=== PATIENT | female | born 1945 | race Caucasian/White ===

== ENCOUNTER 2018-02-16 07:54 | Inpatient (IN) | payer MEDICARE ==
[2018-02-16] MEDS ORDERED: SODIUM CHLORIDE 0.9% 500 ML IV STA ×2 (08:01→09:37)
[2018-02-16] MEDS ORDERED: RX INFO: IV CONTRAST WAS GIVEN 1 EACH MISC MISCELLANE PRN (08:01)
[2018-02-16] MEDS ORDERED: SODIUM CHLORIDE 0.9% 1,000 ML IV STA (08:01)
[2018-02-16] MEDS ORDERED: MECLIZINE 12.5 MG TAB PO STA (08:04)
--- NOTE | 2018-02-16 08:07 | ED ---
Dizziness HPI - General Stated Complaint: DIZZINESS Time Seen by Provider: 02/16/18 07:54 Source: patient, EMS, RN notes reviewed Mode of arrival: EMS Limitations: no limitations - History of Present Illness Initial Comments: This is a 72-year-old female with a history of hypertension three-way coronary artery bypass anxiety depression and low back problems who states she gets this morning and when walking across a room to open the shade she felt suddenly very weak lightheaded dizzy and was staggering. She had no weakness to arms or legs was focal no difficulty with speech or with vision. He was brought in by EMS for evaluation. She states she seemed to get worse with head movements. She does states she did have a similar episode several weeks ago that resolved. No history of stroke she is a nonsmoker. No fevers chills sweats nausea vomiting diarrhea no other modifying factors MD Complaint: dizziness, lightheadedness, difficulty walking - Related Data Home Medications Medication Instructions Recorded Confirmed ALPRAZolam [Xanax] 1 mg PO Q8HR PRN 02/16/18 02/16/18 Acetaminophen [Tylenol 8 Hour] 650 mg PO Q8H PRN 02/16/18 02/16/18 Aspirin EC [Ecotrin Low Dose] 81 mg PO DAILY 02/16/18 02/16/18 Calcium Carb/Vitamin D3/Vit K1 1 tab PO DAILY 02/16/18 02/16/18 [Citracal Soft Chew] Cholecalciferol (Vitamin D3) 2,000 unit PO DAILY 02/16/18 02/16/18 [Vitamin D3] Losartan Potassium 100 mg PO DAILY 02/16/18 02/16/18 Metoprolol Succinate (ER) [Toprol 25 mg PO DAILY 02/16/18 02/16/18 Xl] Naproxen Sodium [Aleve] 220 mg PO BID PRN 02/16/18 02/16/18 Naproxen [Naproxen] 500 mg PO BID 02/16/18 02/16/18 Pravastatin Sodium 80 mg PO HS 02/16/18 02/16/18 Allergies Allergy/AdvReac Type Severity Reaction Status Date / Time No Known Allergies Allergy Verified 02/16/18 09:38 Review of Systems ROS Statement: Those systems with pertinent positive or pertinent negative responses have been documented in the HPI. ROS Other: All systems not noted in ROS Statement are negative. Past Medical History Past Medical History: Hyperlipidemia, Hypertension Additional Past Medical History / Comment(s): Chronic Back Pain History of Any Multi-Drug Resistant Organisms: None Reported Past Surgical History: Coronary Bypass/CABG Past Psychological History: Anxiety, Depression Smoking Status: Never smoker Past Alcohol Use History: None Reported Past Drug Use History: None Reported General Exam - General Exam Comments Initial Comments: This is a well-developed well-nourished awake alert oriented 3 female Limitations: no limitations General appearance: alert, anxious, other (There is a small approximate 170 diameter lesion to the right face lateral to the nose which may represent neoplasm the patient was advised to see a it business process architect to get this evaluated.) Head exam: Present: atraumatic, normocephalic, normal inspection Eye exam: Present: normal appearance, PERRL, EOMI. Absent: scleral icterus, conjunctival injection, periorbital swelling ENT exam: Present: normal exam, mucous membranes moist Neck exam: Present: normal inspection. Absent: tenderness, meningismus, lymphadenopathy Respiratory exam: Present: normal lung sounds bilaterally. Absent: respiratory distress, wheezes, rales, rhonchi, stridor Cardiovascular Exam: Present: regular rate, normal rhythm, normal heart sounds. Absent: systolic murmur, diastolic murmur, rubs, gallop, clicks GI/Abdominal exam: Present: soft, normal bowel sounds. Absent: distended, tenderness, guarding, rebound, rigid Extremities exam: Present: normal inspection, full ROM, normal capillary refill. Absent: tenderness, pedal edema, joint swelling, calf tenderness Back exam: Present: normal inspection Neurological exam: Present: alert, oriented X3, CN II-XII intact Psychiatric exam: Present: normal affect, anxious Skin exam: Present: warm, dry, intact, normal color. Absent: rash Course Vital Signs 02/16/18 02/16/18 02/16/18 07:55 09:55 11:00 Temperature 97.1 F L Pulse Rate 54 L 58 L 58 L Respiratory 18 18 18 Rate Blood Pressure 168/96 179/84 157/76 O2 Sat by Pulse 100 93 L 96 Oximetry - Reevaluation(s) Reevaluation #1: 02/16/18 11:54 I did reevaluate patient several occasions she still remains dizzy though slightly improved. I did discuss the findings with her and with her family members including the radiological findings of stenosis and the aneurysms. EKG Findings - EKG Results: EKG: interpreted by ERMD, sinus rhythm (Sinus bradycardia rate of 58. Interval 214 QRS 78 QT since QTC of 436/428 first-degree AV block occasional PAC nonspecific inferior changes) Medical Decision Making - Medical Decision Making Patient will be admitted for evaluation and neurological consultation. - Lab Data Result diagrams: 02/16/18 08:05 02/16/18 08:05 Lab Results 02/16/18 02/16/18 02/16/18 Range/Units 08:05 08:05 08:05 WBC 6.3 (3.8-10.6) k/uL RBC 4.97 (3.80-5.40) m/uL Hgb 13.9 (11.4-16.0) gm/dL Hct 41.0 (34.0-46.0) % MCV 82.6 (80.0-100.0) fL MCH 28.0 (25.0-35.0) pg MCHC 33.9 (31.0-37.0) g/dL RDW 14.1 (11.5-15.5) % Plt Count 241 (150-450) k/uL Neutrophils % 62 % Lymphocytes % 27 % Monocytes % 5 % Eosinophils % 3 % Basophils % 0 % Neutrophils # 3.9 (1.3-7.7) k/uL Lymphocytes # 1.7 (1.0-4.8) k/uL Monocytes # 0.3 (0-1.0) k/uL Eosinophils # 0.2 (0-0.7) k/uL Basophils # 0.0 (0-0.2) k/uL PT (9.0-12.0) sec INR (<1.2) APTT (22.0-30.0) sec Sodium 146 H (137-145) mmol/L Potassium 4.4 (3.5-5.1) mmol/L Chloride 107 (98-107) mmol/L Carbon Dioxide 26 (22-30) mmol/L Anion Gap 13 mmol/L BUN 23 H (7-17) mg/dL Creatinine 0.92 (0.52-1.04) mg/dL Est GFR (CKD-EPI)AfAm 71 (>60 ml/min/1.73 sqM) Est GFR (CKD-EPI)NonAf 62 (>60 ml/min/1.73 sqM) Glucose 93 (74-99) mg/dL Calcium 9.7 (8.4-10.2) mg/dL Magnesium 2.0 (1.6-2.3) mg/dL Total Bilirubin 0.7 (0.2-1.3) mg/dL AST 32 (14-36) U/L ALT 29 (9-52) U/L Alkaline Phosphatase 80 (38-126) U/L Total Creatine Kinase 56 (30-135) U/L CK-MB (CK-2) 0.7 (0.0-2.4) ng/mL CK-MB (CK-2) Rel Index 1.3 Troponin I <0.012 (0.000-0.034) ng/mL Total Protein 6.8 (6.3-8.2) g/dL Albumin 4.2 (3.5-5.0) g/dL / Range/Units 08:05 WBC (3.8-10.6) k/uL RBC (3.80-5.40) m/uL Hgb (11.4-16.0) gm/dL Hct (34.0-46.0) % MCV (80.0-100.0) fL MCH (25.0-35.0) pg MCHC (31.0-37.0) g/dL RDW (11.5-15.5) % Plt Count (150-450) k/uL Neutrophils % % Lymphocytes % % Monocytes % % Eosinophils % % Basophils % % Neutrophils # (1.3-7.7) k/uL Lymphocytes # (1.0-4.8) k/uL Monocytes # (0-1.0) k/uL Eosinophils # (0-0.7) k/uL Basophils # (0-0.2) k/uL PT 10.2 (9.0-12.0) sec INR 1.0 (<1.2) APTT 21.7 L (22.0-30.0) sec Sodium (137-145) mmol/L Potassium (3.5-5.1) mmol/L Chloride (98-107) mmol/L Carbon Dioxide (22-30) mmol/L Anion Gap mmol/L BUN (7-17) mg/dL Creatinine (0.52-1.04) mg/dL Est GFR (CKD-EPI)AfAm (>60 ml/min/1.73 sqM) Est GFR (CKD-EPI)NonAf (>60 ml/min/1.73 sqM) Glucose (74-99) mg/dL Calcium (8.4-10.2) mg/dL Magnesium (1.6-2.3) mg/dL Total Bilirubin (0.2-1.3) mg/dL AST (14-36) U/L ALT (9-52) U/L Alkaline Phosphatase (38-126) U/L Total Creatine Kinase (30-135) U/L CK-MB (CK-2) (0.0-2.4) ng/mL CK-MB (CK-2) Rel Index Troponin I (0.000-0.034) ng/mL Total Protein (6.3-8.2) g/dL Albumin (3.5-5.0) g/dL - Radiology Data Radiology results: report reviewed (I did review the imaging and reports which includes the bilateral MCA aneurysms 5 x 5 mm on the right and 2 mm and left hand the proximally 50% stenosis of the right carotid bulb etc. no acute findings), image reviewed Disposition Clinical Impression: Vertigo Disposition: ADMITTED IP TO THIS [facility] Condition: Stable Referrals: James Barboza MD [Primary Care Provider] - 1-2 days
[2018-02-16 08:25] LABS: Basophils % (A) 0 %; Eosinophils # (A) 0.2 k/uL (0-0.7); Eosinophils % (A) 3 %; HGB 13.9 gm/dL (11.4-16.0); Lymphocytes # (A) 1.7 k/uL (1.0-4.8); Lymphocytes % (A) 27 %; MCHC 33.9 g/dL (31.0-37.0); MCV 82.6 fL (80.0-100.0); Mean Platelet Volume 7.7; Monocytes # (A) 0.3 k/uL (0-1.0); Monocytes % (A) 5 %; Neutrophils # (A) 3.9 k/uL (1.3-7.7); Neutrophils % (A) 62 %; Platelet Count 241 k/uL (150-450); RBC 4.97 m/uL (3.80-5.40); RDW 14.1 % (11.5-15.5); WBC 6.3 k/uL (3.8-10.6)
[2018-02-16 08:35] LABS: Albumin 4.2 g/dL (3.5-5.0); Calcium 9.7 mg/dL (8.4-10.2); Potassium 4.4 mmol/L (3.5-5.1); Total Bilirubin 0.7 mg/dL (0.2-1.3); Total Protein 6.8 g/dL (6.3-8.2)
[2018-02-16 08:41] LABS: Prothrombin Time 10.2 sec (9.0-12.0)
[2018-02-16 08:48] LABS: Partial Thromboplastin Time 21.7 sec (22.0-30.0)
[2018-02-16 08:49] LABS: Creatine Kinase 56 U/L (30-135)
--- NOTE | 2018-02-16 08:52 | CT ---
EXAMINATION TYPE: CT brain wo con DATE OF EXAM: 02/16/2018 COMPARISON: NONE HISTORY: Patient complains of weakness, lightheadedness, and dizziness. CT DLP: 825.2 mGycm Automated exposure control for dose reduction was used. TECHNIQUE: CT scan of the head is performed without contrast. FINDINGS: There is no acute intracranial hemorrhage or midline shift identified. There is diffuse v entricular and sulcal prominence consistent with diffuse age-related cerebral atrophy. There is low- attenuation in the periventricular white matter consistent with chronic small vessel ischemic change. Dystrophic calcifications are seen of the basal ganglia. Tiny CSF attenuated old clearing trace seen of the external capsule on the right and of the inferior right lentiform nucleus. The globes are int act and the visualized sinuses are clear. Calvarium is intact. Diffuse osseous demineralization is seen of the skull base and calvarium. Atherosclerosis is noted of the intracranial vasculature. IMPRESSION: 1. No acute intracranial process. 2. 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 Mild age-related cerebral atro phy and chronic small vessel ischemic change, likely on the basis of chronic microangiopathy.
[2018-02-16 09:01] LABS: Creatine Kinase MB 0.7 ng/mL (0.0-2.4); Troponin I <0.012 ng/mL (0.000-0.034)
--- NOTE | 2018-02-16 09:24 | CT ---
EXAMINATION TYPE: CT angio head neck DATE OF EXAM: 02/16/2018 HISTORY: Patient complains of weakness, lightheadedness, and dizziness. COMPARISON: CT brain of the same date CT DLP: 176.5 mGycm. Automated Exposure Control for Dose Reduction was Utilized. TECHNIQUE: CTA scan of the neck is performed with IV Contrast, patient injected with 65 mL of Isovue 370, axial images are obtained, coronal and sagittal reformatted images are reviewed. Three-D recons tructed images are created on an independent workstation and reviewed. FINDINGS: Carotid/Vascular Structures: There is approximately 50% stenosis of the carotid bulb and proximal int ernal carotid artery from contiguous noncalcific and calcific atheromatous plaquing in a segment johnna uring 1.2 cm on series 8 image 43. There is less than 50% nonhemodynamically significant stenosis of the left carotid bulb. No significant atheromatous changes are seen of the common carotid arteries or internal carotid arteries in the neck. Vertebral arteries are patent without dissection, focal aneur ysm or stenosis. Left vertebral artery is dominant. With respect to the intracranial vasculature there is approximately 50% stenosis of the bilateral cav ernous and supraclinoid portions of the internal carotid arteries. There is a 5 x 5 mm aneurysm emanating from the M1 segment of the right middle cerebral artery on ser ies 13 image 40 and series 12 image 13 through 16. There is also a tiny 2 mm aneurysm of the M1 segme nt of the left middle cerebral artery on series 12 image 13. There is anatomic variation of the origi n of the right posterior cerebral artery. No additional intracranial aneurysm is seen. No vascular oc clusion or stenosis is noted in the intracranial vasculature. Left posterior communicating artery is diminutive. Visualized portions of the brain parenchyma are better evaluated on the CT brain dictatio n of the same date. Other: Biapical pleural-parenchymal plaquing is noted. Multilevel moderate degenerative changes of th e cervical spine are seen. Slight grade 1 anterolisthesis of C3 on C4 is identified. IMPRESSION: 1. Bilateral M1 segment middle cerebral artery intracranial aneurysms without evidence of extravasati on or rupture. The right aneurysm measures 5 x 5 mm and the left measures 2 mm. 2. Approximately 50% stenosis of the right carotid bulb, bilateral cavernous portions of the internal carotid arteries, and bilateral supraclinoid portions of the internal carotid arteries. 2. No evidence of vascular dissection or total occlusion.
--- NOTE | 2018-02-16 09:29 | XR ---
EXAMINATION TYPE: XR chest 2V DATE OF EXAM: 02/16/2018 COMPARISON: NONE HISTORY: Altered mental status and weakness. TECHNIQUE: Frontal and lateral views of the chest are obtained. FINDINGS: Post CABG changes with mediastinal clips and sternal wires is present. There is chronic par enchymal change without suspicious focal air space opacity, pleural effusion, or pneumothorax seen. The cardiac silhouette size is within normal limits. The osseous structures are demineralized. Roun ded densities right axilla could reflect soft tissue calcifications or loose bodies. IMPRESSION: Chronic changes without acute pulmonary process.
[2018-02-16] MEDS ORDERED: NAPROXEN 250 MG TAB PO PRN (11:59)
[2018-02-16] MEDS ORDERED: ALPRAZolam 1 MG TAB PO PRN (11:59)
[2018-02-16] MEDS ORDERED: ACETAMINOPHEN TAB 325 MG TAB PO PRN (11:59)
[2018-02-16 15:37] VITALS: RESP 16
[2018-02-16] MEDS ORDERED: METOPROLOL SUCCINATE (ER) 25 MG TAB.ER.24H PO STA (16:25)
[2018-02-16] MEDS ORDERED: LOSARTAN 50 MG TAB PO STA (16:26)
[2018-02-16] MEDS: SODIUM CHLORIDE 0.9% 1,000 ML IV SCH (17:20)
[2018-02-16] MEDS: NAPROXEN 250 MG TAB PO SCH (20:14)
[2018-02-16] MEDS ORDERED: PRAVASTATIN SODIUM 80 MG TAB PO SCH (21:00)
--- NOTE | 2018-02-16 21:18 | CONS ---
CONSULTATION DATE OF CONSULTATION: 02/16/2018 CHIEF COMPLAINT: Dizziness. HISTORY OF PRESENT ILLNESS: Mrs. Markham is a pleasant 72-year-old, female who was being evaluated by the Neurology service per the request of Dr. Keen for dizziness. The patient was brought into [facility] Emergency Room after she had a sudden onset of dizziness this morning. She described the dizziness at that time as a spinning sensation. She has had similar episodes in the past, but never this severe. The patient was unable to ambulate due to the severity of the symptoms. The patient was brought into [facility] Emergency Room by EMS for further management. She denied having any lateralizing numbness or weakness and denied having any headaches. A CT scan of the brain was done in the emergency room, which showed old lacunar infarct involving the right basal ganglia and right external capsule. There was also generalized atrophy and small-vessel ischemic changes. A CT angiogram of the brain was done, which showed a 5 x 5 mm right middle cerebral artery aneurysm and a 2 x 2 mm left middle cerebral artery aneurysm. A CT angiogram of the neck showed 50% right internal carotid artery stenosis. The patient denies knowing of any history of stroke or aneurysm. Her CBC and cardiac enzymes were normal. Her comprehensive metabolic profile showed no significant abnormalities. At the time of my evaluation, the patient was resting in her bed and she denies any current vertigo. She has been having some lightheadedness. She was given Antivert in the emergency room. PAST MEDICAL HISTORY: Coronary artery disease, hypertension, dyslipidemia, coronary artery bypass grafting, chronic low back pain, anxiety disorder, depression. She also reports previous vertigo symptoms. SOCIAL HISTORY: She denies any tobacco, alcohol or drug use. FAMILY HISTORY: Noncontributory. HOME MEDICATIONS: Reviewed in the chart. ALLERGIES: No known drug allergies. REVIEW OF SYSTEMS: CONSTITUTIONAL: Positive for fatigue. EYES: Negative. ENT: As mentioned above. CARDIOVASCULAR: Negative. GENITOURINARY: Negative. DERMATOLOGICAL: Negative. NEUROLOGICAL: As mentioned above. GASTROINTESTINAL: Negative. GENITOURINARY: Negative. ENDOCRINE: Negative. MUSCULOSKELETAL: Positive for occasional low back pain and joint pain. PSYCHIATRIC: Negative. PHYSICAL EXAM: Vital signs show a temperature of 98.2, pulse 62, respirations 16, blood pressure 155/73. GENERAL APPEARANCE: The patient is a well-developed, elderly female, who appears to be in no acute distress. HEENT: Normocephalic, atraumatic, no facial asymmetry is seen. NECK: Supple with no masses felt. CARDIOVASCULAR: Regular rate and rhythm. ABDOMEN: Nontender, nondistended. Extremities showed no edema or clubbing. NEUROLOGICAL EXAM: The patient is alert, aware and oriented x3. Speech and language are normal. Strength is full in all 4 extremities. Sensory exam was normal to light touch in all 4 extremities. No tremors or seizure-like activity is seen. No pronator drift is noted. Cranial nerve testing showed no facial asymmetry and no nystagmus. IMPRESSIONS: 1. Dizziness. 2. Intracranial aneurysms. 3. History of ischemic stroke. 4. Carotid stenosis. 5. Hypertension. RECOMMENDATION: The patient vertigo has improved with Antivert. She is still having mild dizziness, but denies any vertigo. She will have an EEG done. I reviewed with her the results of her CT scan of the brain and CT angiogram. She does have evidence of old lacunar infarcts and she should remain on aspirin 81 mg daily. As for her aneurysms, these are incidental findings and not related to her vertigo. She will need to have followup imaging to monitor any change in size. She will follow up with me after discharge. I will establish neurosurgical consultation at that time. As for her carotid stenosis, it is at 50% at this time. I will continue to follow this in the outpatient setting. The patient was advised to seek immediate medical attention if she has any stroke-like symptoms or if she has any sudden onset of a severe headache. The importance of blood pressure control was discussed with her as well. I will continue to follow with you. Further recommendations to follow. Thank you for allowing me to participate in the care of your patient. If you have any questions, please feel free to contact me. BOBBI / CHANTELLEN: [id number] / PARMINDER
[2018-02-16] MEDS ORDERED: LACTULOSE 20 GM/30 ML CUP PO PRN (22:21)
[2018-02-16] MEDS ORDERED: ALPRAZolam 0.25 MG TAB PO PRN (22:21)
[2018-02-16] MEDS ORDERED: MAGNESIUM HYDROXIDE 2,400 MG/10 ML CUP PO PRN (22:21)
[2018-02-16] MEDS ORDERED: MELATONIN 3 MG TABLET PO PRN (22:21)
[2018-02-16] MEDS ORDERED: NALOXONE 0.4 MG/ML 1 ML VIAL IV PRN (22:21)
[2018-02-16] MEDS ORDERED: ONDANSETRON 4 MG/2 ML VIAL IVP PRN (22:21)
[2018-02-16] MEDS ORDERED: CALCIUM CARBONATE 500 MG CHEWABLE PO PRN (22:21)
[2018-02-16] MEDS: MECLIZINE 12.5 MG TAB PO SCH (23:30)
--- NOTE | 2018-02-16 23:42 | HP ---
HISTORY AND PHYSICAL DATE OF ADMISSION: 02/16/2018. DATE OF SERVICE: 02/16/2018 PRESENT COMPLAINT: Room spinning. HISTORY OF PRESENTING COMPLAINT: This is a very pleasant 72-year-old patient of Dr. Barboza. Chronic stable medical conditions include coronary artery disease, hypertension, depression, chronic low back pain, anxiety, depression. The patient at 6:00 this morning got up, felt very dizzy. The room was spinning around. No palpitations. No shortness of breath. No chest pain. Did not matter what position she was. Finally decided to come to the hospital. There was no change in vision, speech or focal weakness. The patient presented to the ER. The patient has not had any recent cardiac workup. The patient did have a CT angio in the ER, was found to have [address] scan of the brain was unremarkable. EKG did not show any arrhythmia. The patient admitted for the same. REVIEW OF SYSTEMS: CONSTITUTIONAL: None. HEENT: As above. No ear trouble. RESPIRATORY: None. CARDIOVASCULAR: None. GASTROINTESTINAL: None. GENITOURINARY: None. MUSCULOSKELETAL: Arthritic pain in lower back. DERMATOLOGICAL: None. HEMATOLOGIC: None. LYMPHATIC: None. PSYCHIATRY: Anxiety, controlled. NEUROLOGICAL: As above with no focal weakness. PAST MEDICAL HISTORY: Coronary artery disease, hypertension, chronic low back pain for which he follows with Dr. Joyce, osteoporosis, anxiety, depression. PAST SURGICAL HISTORY: Coronary bypass, 2 vessel in 2005. SOCIAL HISTORY: Does not smoke or drink alcohol. . FAMILY HISTORY: Myocardial infarction. HOME MEDICATIONS: 1. Naproxen 500 mg p.o. b.i.d. 2. Toprol-XL 25 mg a day. 3. Pravastatin 80 mg q.h.s. 4. Losartan 100 mg p.o. daily. 5. Vitamin D3 2000 units p.o. daily. 6. Tylenol 650 mg q.8h p.r.n. 7. Xanax 1 mg q.8h p.r.n. 8. Citracal soft chew 1 tablet p.o. daily. 9. Aspirin 81 mg p.o. daily. ALLERGIES: None. EXAMINATION: VITAL SIGNS: On presentation, temperature 97.1, pulse 54, respirations 18, blood pressure 168/96, pulse ox 100% on room air. GENERAL APPEARANCE: Average build, lying in bed, comfortable. EYES: Pupils equal. Conjunctivae normal. HEENT: External appearance of nose and ears normal. Oral cavity normal. NECK: JVD not raised. Mass not palpable. RESPIRATORY: Effort normal. Lungs are clear. CARDIOVASCULAR: First and second sounds normal. No edema. ABDOMEN: Soft, nontender. Liver and spleen not palpable. LYMPHATIC: No lymph node palpable in neck or axillae. PSYCHIATRY: Alert and oriented x3. Mood and affect normal. NEUROLOGICAL: Pupils equal. Cranial nerves grossly intact. No nystagmus. No slurring of speech. Power and sensation grossly intact. No dysdiadochokinesia. No past-pointing. INVESTIGATIONS: White count 6.3, hemoglobin 13.9. Potassium 4.4, BUN 23, creatinine 0.92. Troponin negative. EKG shows first-degree heart block. CT angio of the brain shows a 5.5-cm aneurysm around the right middle cerebral artery and a tiny 2-mm aneurysm off the left middle cerebral artery. There is 50% stenosis of the right carotid bulb. CT scan of the brain: Old acute infarct of the right basal ganglia and external capsule. Also EKG shows ST-segment depression in V2 to V6 and I and aVL. ASSESSMENT: 1. Patient presented with episodes of room spinning which is vertigo. It could be from , but the patient has no symptoms pointing to that. It could also be from the arrhythmia, given that the patient has known history of coronary artery disease and ST-segment depression in inferolateral leads. The patient has not had any other stress test recently and needs to be further investigated. 2. Coronary artery disease with bypass 2 years ago. 3. Essential hypertension, uncontrolled on presentation. 4. Anxiety, depression, not otherwise specified. 5. Lumbar spine degenerative joint disease. 6. 2 cerebral aneurysms, 2 mm and 5 , which does not explain patient's presentation, as these are focal findings. PLAN: Patient will be given Antivert to see if this abates her symptoms. The patient will also probably need a stress test, given the EKG findings. Neurology and Cardiology were both consulted. Care was discussed with the patient. Questions were answered. MMODL / IJN: [id number] /
[2018-02-17 01:45] LABS: Cholesterol 138 mg/dL (<200); HDL Cholesterol 40 mg/dL (40-60); LDL Cholesterol,Calculated 53 mg/dL (0-99); Triglycerides 227 mg/dL (<150)
[2018-02-17] MEDS ORDERED: ASPIRIN 81 MG PO SCH (09:00)
[2018-02-17] MEDS ORDERED: LOSARTAN 50 MG TAB PO SCH (09:00)
[2018-02-17] MEDS ORDERED: ENOXAPARIN 40 MG/0.4 ML SYRINGE SQ SCH (09:00)
[2018-02-17] MEDS ORDERED: METOPROLOL SUCCINATE (ER) 25 MG TAB.ER.24H PO SCH (09:00)
--- NOTE | 2018-02-17 11:02 | P.CRDCN ---
History of Present Illness Consult date: 02/17/18 History of present illness: This is a 72-year-old female with history of hypertension, previous bypass surgery and also anxiety and depression who was admitted to the hospital with symptoms of dizziness as if everything is spinning around her. The symptoms are suggestive of vertigo. Patient was seen by neurology. She was treated with Antivert with improvement of her symptoms. CT scans and showed evidence of previous lacunar infarcts. Carotid duplex study showed mild to moderate disease. Patient is feeling much better today. Denied any chest pain or shortness of breath. EKG showed mild nonspecific ST-T abnormalities. Once troponin is within normal limits. I'm going to get another troponin value and an echocardiogram. If they're normal, patient could be discharged home. Further cardiac evaluation as an outpatient. Follow-up in the office in one week Review of Systems As per HPI Past Medical History Past Medical History: Coronary Artery Disease (CAD), Chest Pain / Angina, Hypertension Additional Past Medical History / Comment(s): Chronic Back Pain lately and recently saw Dr. Joyce for this, DDD, DJD, osteoporosis. History of Any Multi-Drug Resistant Organisms: None Reported Past Surgical History: Coronary Bypass/CABG, Heart Catheterization Additional Past Surgical History / Comment(s): 2005 CABG 2 vessel Past Anesthesia/Blood Transfusion Reactions: No Reported Reaction Smoking Status: Never smoker - Past Family History Father Additional Family Medical History / Comment(s): Father had heart problems after the of his daughter. Mother Family Medical History: Myocardial Infarction (PA) Additional Family Medical History / Comment(s): Mother in her 60s from a PA. Sister(s) Additional Family Medical History / Comment(s): Sister comitted suicide. Medications and Allergies Home Medications Medication Instructions Recorded Confirmed Type ALPRAZolam [Xanax] 1 mg PO Q8HR PRN 02/16/18 02/16/18 History Acetaminophen [Tylenol 8 Hour] 650 mg PO Q8H PRN 02/16/18 02/16/18 History Aspirin EC [Ecotrin Low Dose] 81 mg PO DAILY 02/16/18 02/16/18 History Calcium Carb/Vitamin D3/Vit K1 1 tab PO DAILY 02/16/18 02/16/18 History [Citracal Soft Chew] Cholecalciferol (Vitamin D3) 2,000 unit PO DAILY 02/16/18 02/16/18 History [Vitamin D3] Losartan Potassium 100 mg PO DAILY 02/16/18 02/16/18 History Metoprolol Succinate (ER) [Toprol 25 mg PO DAILY 02/16/18 02/16/18 History Xl] Naproxen Sodium [Aleve] 220 mg PO BID PRN 02/16/18 02/16/18 History Naproxen [Naproxen] 500 mg PO BID 02/16/18 02/16/18 History Pravastatin Sodium 80 mg PO HS 02/16/18 02/16/18 History Allergies Allergy/AdvReac Type Severity Reaction Status Date / Time No Known Allergies Allergy Verified 02/16/18 09:38 Physical Exam Vitals: Vital Signs Temp Pulse Pulse Pulse Pulse Pulse Pulse 02/17/18 08:00 97.4 F L 58 L 02/17/18 04:00 97.1 F L 62 02/17/18 00:00 97.0 F L 48 L 02/16/18 20:00 60 02/16/18 18:47 56 L 02/16/18 17:10 60 69 60 02/16/18 16:00 97 F L 62 02/16/18 15:35 98.2 F 62 02/16/18 13:57 55 L 02/16/18 11:57 56 L 02/16/18 11:00 58 L Resp BP BP BP BP BP Pulse Ox 02/17/18 08:00 16 139/70 94 L 02/17/18 04:00 16 141/75 94 L 02/17/18 00:00 16 140/67 96 02/16/18 20:00 16 159/76 93 L 02/16/18 18:47 149/72 02/16/18 17:10 162/74 156/69 133/62 02/16/18 16:00 16 163/75 97 02/16/18 15:35 16 155/73 97 02/16/18 13:57 18 162/75 02/16/18 11:57 18 156/70 96 02/16/18 11:00 18 157/76 96 Intake and Output 02/16/18 02/17/18 02/17/18 22:59 06:59 14:59 Other: Voiding Method Toilet Toilet Toilet # Voids 1 1 Weight 55.1 kg GENERAL EXAM: Patient is alert and oriented and doesn't appear to be in any acute distress HEENT: Normocephalic. Normal reaction of pupils, equal size, normal range of extraocular motion. No erythema or exudates in the throat. NECK: No masses, no nuchal rigidity. CHEST: No chest wall deformity. LUNGS: Equal air entry with no crackles or wheeze. HEART: S1 and S2 normal with no audible mumurs or gallops. Regular rhythm, femorals equal on both sides.. ABDOMEN: No hepatosplenomegaly, normal bowel sounds, no guarding or rigidity. SKIN: No rashes CENTRAL NERVOUS SYSTEM: No focal deficits. EXTREMITIES: No cyanosis, clubbing or edema. Results 02/16/18 08:05 02/16/18 08:05 Lipids 02/16/18 Range/Units 08:05 Triglycerides 227 H (<150) mg/dL Cholesterol 138 (<200) mg/dL HDL Cholesterol 40 (40-60) mg/dL Current Medications Generic Name Dose Route Start Last Admin Trade Name Freq PRN Reason Stop Dose Admin Acetaminophen 650 mg 02/16/18 11:59 Tylenol Tab PO Q8H PRN Pain Alprazolam 0.25 mg 02/16/18 22:21 Xanax PO Q6HR PRN Anxiety Aspirin 81 mg 02/17/18 09:00 Aspirin PO DAILY [facility] Calcium Carbonate 1 each 02/17/18 12:00 Oscal 500+D PO 1200 BELINDA Calcium Carbonate/Glycine 1,000 mg 02/16/18 22:21 Tums PO Q4HR PRN Dyspepsia Cholecalciferol 2,000 unit 02/17/18 12:00 Vitamin D3 PO 1200 BELINDA Enoxaparin Sodium 40 mg 02/17/18 09:00 Lovenox SQ DAILY BELINDA Sodium Chloride 1,000 mls @ 20 mls/hr 02/16/18 12:00 02/16/18 17:20 Saline 0.9% IV Not Given .Q24H BELINDA Lactulose 20 gm 02/16/18 22:21 Cephulac PO DAILY PRN Constipation Losartan Potassium 100 mg 02/17/18 09:00 Cozaar PO DAILY [facility]IN[facility] Magnesium Hydroxide 2,400 mg 02/16/18 22:21 Milk Of Magnesia PO DAILY PRN Constipation Meclizine HCl 12.5 mg 02/16/18 22:30 02/16/18 23:30 Antivert PO 12.5 mg QID BELINDA Administration Melatonin 3 mg 02/16/18 22:21 Melatonin PO HS PRN Insomnia Metoprolol Succinate 25 mg 02/17/18 09:00 Toprol Xl PO DAILY [facility]INDA Miscellaneous Information 1 each 02/16/18 08:01 02/16/18 08:10 Rx Info: Iv Contrast Was Given MISCELLANE 02/18/18 08:03 1 each DAILY PRN Administration Per Protocol Naloxone HCl 0.2 mg 02/16/18 22:21 Narcan IV Q2M PRN Opioid Reversal Naproxen 250 mg 02/16/18 11:59 Naprosyn PO BID PRN Mild Pain Naproxen 500 mg 02/16/18 21:00 02/16/18 20:14 Naprosyn PO 500 mg BID BELINDA Administration Ondansetron HCl 4 mg 02/16/18 22:21 Zofran IVP Q8HR PRN Nausea And Vomiting Pravastatin Sodium 80 mg 02/16/18 21:00 02/16/18 20:14 Pravachol PO 80 mg HS BELINDA Administration Intake and Output 02/16/18 02/17/18 02/17/18 22:59 06:59 14:59 Other: Voiding Method Toilet Toilet Toilet # Voids 1 1 Weight 55.1 kg 02/16/18 08:05 02/16/18 08:05 EKG Interpretations (text) Sinus rhythm with a mild ST-T abnormalities in the lateral leads Assessment and Plan (1) CAD (coronary artery disease) Current Visit: Yes Status: Acute Code(s): I25.10 - ATHSCL HEART DISEASE OF [place] CORONARY ARTERY W/O ANG PCTRS SNOMED Code(s): 67952816 (2) Vertigo Current Visit: Yes Status: Acute Code(s): R42 - DIZZINESS AND GIDDINESS SNOMED Code(s): 780151613 (3) Essential hypertension Current Visit: Yes Status: Acute Code(s): I10 - ESSENTIAL (PRIMARY) HYPERTENSION SNOMED Code(s): 30055936 Plan: Patient is feeling better. Her symptoms are clearly related to vertigo. No symptoms of angina or CHF. He EKG showed some nonspecific ST-T wave normalities. If the echo is normal, cardiac enzymes are normal, patient could be discharged home. Follow-up in the office in one to 2 weeks
[2018-02-17 11:05] VITALS: BMI 23.7
[2018-02-17] MEDS: MECLIZINE 12.5 MG TAB PO SCH ×2 (11:33→15:24)
[2018-02-17] MEDS: SODIUM CHLORIDE 0.9% 1,000 ML IV SCH (11:38)
[2018-02-17] MEDS ORDERED: CHOLECALCIFEROL 1,000 UNIT TAB PO SCH (12:00)
[2018-02-17] MEDS ORDERED: CALCIUM CARB-VIT D 500MG-200UN 1 EACH TAB PO SCH (12:00)
[2018-02-17] MEDS: NAPROXEN 250 MG TAB PO SCH (12:39)
--- NOTE | 2018-02-17 14:22 | P.PN ---
Subjective Progress Note Date: 02/17/18 Patient is a pleasant 72-year-old female who is being followed by the neurology service for dizziness. Patient had sudden onset of dizziness and was brought to [facility] for further evaluation. Patient describes dizziness as a spinning sensation. Patient states she has had this in the past but this is the worst it ever been. Patient denies having any lateralizing weakness, speech difficulties, or headaches. Computed tomography scan of the brain showed old lacunar infarct involving right basal ganglia and right external capsule. Also showed generalized atrophy and small vessel ischemic changes. CTA of the brain was done which showed a 5 x 5 mm right middle cerebral artery aneurysm and a 2 x 2 millimeter left middle cerebral artery aneurysm. A CT angiogram of the neck showed 50% right internal carotid stenosis. Patient does not have any history of stroke or aneurysm. At the time of my evaluation, patient's resting comfortably in bed and is visiting with family. Patient denies dizziness or lightheadedness at this time. Objective - Vital Signs Vital signs: Vital Signs Temp 97.6 F 02/17/18 11:30 Pulse 53 L 02/17/18 11:30 Resp 16 02/17/18 11:30 BP 178/80 02/17/18 11:30 Pulse Ox 97 02/17/18 11:30 Intake & Output 02/16/18 02/17/18 02/17/18 18:59 06:59 18:59 Intake Total 160 Balance 160 Weight 55.338 kg 55.1 kg 55.1 kg Intake: IV 160 Sodium Chloride 0.9% 1, 160 000 ml @ 20 mls/hr IV . Q24H [facility] Rx#:[id number] Other: Voiding Method Toilet Toilet Toilet # Voids 1 - Exam PHYSICAL EXAM: GENERAL APPEARANCE: Patient is a well-developed, female who appears to be in no acute distress. HEENT: Normocephalic, atraumatic, no facial asymmetry is seen. Neck is supple with no masses felt. CARDIOVASCULAR: Regular rate and rhythm. ABDOMEN: Nontender, nondistended. EXTREMITIES: Show no edema or clubbing. NEUROLOGICAL EXAM: Patient is awake, alert, and oriented 3. Speech and language are normal. Strength is full in all 4 extremities. Sensory exam to light touch is normal in all 4 extremities. No facial asymmetry seen on cranial nerve testing. No tremors or seizure-like activity noted. - Labs CBC & Chem 7: 02/16/18 08:05 02/16/18 08:05 Labs: Abnormal Lab Results - Last 24 Hours (Table) 02/16/18 Range/Units 08:05 Triglycerides 227 H (<150) mg/dL Assessment and Plan Plan: Impression: 1. Dizziness 2. Intracranial aneurysms 3. History of ischemic stroke 4. Carotid stenosis 5. Hypertension Recommendation: Patient reports vertigo has greatly improved since starting on Antivert. Computed tomography scan of the brain and CT angiogram as mentioned above. EEG was done and results are pending. Patient has aneurysms that were seen on the CT angiogram that are of incidental finding. Aneurysms are not causing her dizziness. She will need to have outpatient follow-up to monitor any changes in the aneurysms. She may need neurosurgery consult which can be done during her office visit after discharge. Carotid Doppler shows 50% stenosis which will need to be followed in the outpatient setting as well. Her blood pressure is high at times and I recommend adjustment of her medication. Patient is stable from a neurological standpoint for discharge. I will continue to follow with you on an as-needed basis. Feel free to call with any questions or concerns. I performed an examination of the patient and discussed the management with the CORONER/MEDICAL EXAMINER. I have reviewed the CORONER/MEDICAL EXAMINER notes and agree with the findings and plan of care.
[2018-02-17 15:24] VITALS: BP 150/73; TEMP 98.1
[2018-02-17 15:27] VITALS: PULSE 53
--- NOTE | 2018-02-17 15:53 | ECHOF ---
Referral Reason:Chest pain and cardiomyopathy MEASUREMENTS -------- HEIGHT: 152.4 cm WEIGHT: 54.9 kg BP: 139/70 RVIDd: 2.7 cm (< 3.3) IVSd: 1.1 cm (0.6 - 1.1) LVIDd: 4.7 cm (3.9 - 5.3) LVPWd: 1.2 cm (0.6 - 1.1) IVSs: 1.4 cm LVIDs: 3.0 cm LVPWs: 1.7 cm LAESV Index (A-L): 44.91 ml/m Ao Diam: 2.6 cm (2.0 - 3.7) AV Cusp: 1.3 cm (1.5 - 2.6) LA Diam: 4.4 cm (2.7 - 3.8) EPSS: 0.9 cm MV E Jero: 0.88 m/s MV DecT: 141 ms MV A Jero: 0.74 m/s MV E/A Ratio: 1.18 RAP: 5.00 mmHg RVSP: 25.09 mmHg MV EF SLOPE: 185.45 mm/s (70 - 150) MV EXCURSION: 2.25 cm (> 18.000) FINDINGS -------- Sinus rhythm. This was a technically adequate study. The left ventricular size is normal. There is borderline concentric left ventricular hypertrophy. Overall left ventricular systolic function is normal with, an EF between 55 - 60 %. The right ventricle is normal in size and function. LA is severely dilated >40 ml/m2 RA appears enlarged. Aortic valve is trileaflet and is mildly thickened. There is no evidence of aortic regurgitation. There is no evidence of aortic stenosis. The mitral valve leaflets are mildly thickened. Mild mitral regurgitation is present. Mild tricuspid regurgitation present. Right ventricular systolic pressure is normal at < 35 mmHg. There is no evidence of pulmonary hypertension. Trace/mild (physiologic) pulmonic regurgitation. The aortic root size is normal. IVC Not well visulized. There is no pericardial effusion. CONCLUSIONS -------- 1. Sinus rhythm. 2. This was a technically adequate study. 3. The left ventricular size is normal. 4. There is borderline concentric left ventricular hypertrophy. 5. Overall left ventricular systolic function is normal with, an EF between 55 - 60 %. 6. LA is severely dilated >40 ml/m2 7. RA appears enlarged. 8. Aortic valve is trileaflet and is mildly thickened. 9. The mitral valve leaflets are mildly thickened. 10. Mild mitral regurgitation is present. 11. Mild tricuspid regurgitation present. 12. Right ventricular systolic pressure is normal at < 35 mmHg. 13. There is no evidence of pulmonary hypertension. 14. Trace/mild (physiologic) pulmonic regurgitation. 15. The aortic root size is normal. 16. IVC Not well visulized. 17. There is no pericardial effusion. CONSOLIDATION ACCOUNTANT: Marin Hurtado RDCS
--- NOTE | 2018-02-17 17:34 | EEG ---
ELECTROENCEPHALOGRAM REPORT DATE OF SERVICE: 02/17/2018 REASON FOR TESTING: Dizziness. DESCRIPTION OF THE PROCEDURE: This EEG was performed using a 21-channel digital electroencephalograph, following international 10-20 system. DESCRIPTION OF THE RECORDING: From the beginning of the tracing, and with the patient's eyes closed, the background rhythm was mostly consisting of 9-10 Hz alpha frequency in the posterior occipital leads. No obvious asymmetry is seen. Photic stimulation was performed with a minimal driving response seen. No pathological waves were elicited. Hyperventilation was not performed. Rare movement artifacts are seen. The patient remains awake throughout the tracing. No epileptiform discharges were seen. Her EKG lead showed a regular rate and rhythm. INTERPRETATION: This awake EEG can be considered within normal limits. There was no asymmetry seen. No epileptiform discharges were noticed. The absence of epileptiform discharges does not rule out the diagnosis of epilepsy; therefore clinical correlation is recommended. MMYIMIL / IJDino: [id number] /
--- NOTE | 2018-02-22 22:40 | DS ---
DISCHARGE SUMMARY FINAL DIAGNOSES: 1. Acute vertigo. 2. Coronary artery disease with bypass 2 years ago. 3. Essential hypertension. 4. Anxiety and depression, not otherwise specified. 5. Lumbar spine degenerative joint disease. 6. Cerebral aneurysm 2 mm and 5 mm felt to be incidental findings. CONSULTATION: Dr. Howell from Neurology and Dr. Aguilar from Cardiology. HOSPITAL COURSE: This patient presented with room spinning. Did have a 2-D echo that was unremarkable. EEG did not show any seizure activity. CT angio showed aneurysm, felt to be incidental findings. Dr. Howell okayed the patient to be going home. Also seen by Dr. Aguilar, not for any further intervention. The patient's 2D echocardiogram did not report any thrombus and EF was 55% to 60%. Discussion and discharge planning more than 35%. On examination, respiratory effort normal. Lungs are clear. CARDIOVASCULAR: First and second sounds normal. DISCHARGE MEDICATIONS: 1. Xanax 1 mg p.o. q.8h p.r.n. 2. Tylenol 650 mg q.8 p.r.n. 3. Aspirin 81 mg p.o. daily. 4. Citracal soft chew 1 tablet p.o. daily. 5. Vitamin D3 2000 units p.o. daily. 6. Losartan 100 mg p.o. daily. 7. Toprol-XL 25 mg p.o. daily. 8. Aleve 220 mg p.o. b.i.d. p.r.n. 9. Pravastatin 80 mg p.o. q.h.s. 10.Antivert 12.5 three times a day for 6 doses then q.8h p.r.n. FOLLOWUP: Follow up with Dr. Howell in 2 weeks, Dr. Shekhar Barboza on 02/21/2018, Dr. Aguilar on 02/24/2018. Discharge planning more than 35 minutes. MMODL / IJN: [id number] /
== END 2018-02-17 17:26 | disposition home health service (06) | DRG 149 ==
LOC: EC 07:54 → 6SEL 12:00
PROVIDERS: ADMIT Hospitalist; ATTEND Hospitalist
DX: R42 Dizziness and giddiness (principal); I67.1 Cerebral aneurysm, nonruptured; I65.21 Occlusion and stenosis of right carotid artery; I10 Essential (primary) hypertension; E78.5 Hyperlipidemia, unspecified; G89.29 Other chronic pain; F41.9 Anxiety disorder, unspecified; F32.9 Major depressive disorder, single episode, unspecified; M47.816 Spondylosis without myelopathy or radiculopathy, lumbar region; M81.0 Age-related osteoporosis without current pathological fracture; I25.10 Atherosclerotic heart disease of native coronary artery without angina pectoris; Z79.82 Long term (current) use of aspirin; Z79.1 Long term (current) use of non-steroidal anti-inflammatories (NSAID); Z79.899 Other long term (current) drug therapy; Z95.1 Presence of aortocoronary bypass graft; Z86.73 Personal history of transient ischemic attack (TIA), and cerebral infarction without residual deficits; Z82.49 Family history of ischemic heart disease and other diseases of the circulatory system
CPT/HCPCS: 36415; 70450; 70496; 70498; 71046; 80053; 80061; 82550; 82553; 83735; 84484; 85025; 85610; 85730; 93005; 93306; 95816; 96360; 96361; 99285

== ENCOUNTER 2018-07-03 15:01 | Emergency (ER) | payer MEDICARE ==
[2018-07-03 15:31] VITALS: RESP 20
--- NOTE | 2018-07-03 16:10 | ED ---
General Adult HPI - General Source: patient, family, RN notes reviewed Mode of arrival: wheelchair Limitations: no limitations <Jeovany Denis - Last Filed: 07/03/18 16:49> <Jeovany Otto - Last Filed: 07/03/18 19:59> - General Chief complaint: Weakness Stated complaint: weakness/no appetite Time Seen by Provider: 07/03/18 15:40 - History of Present Illness Initial comments: This is a 72-year-old female presents emergency department for generalized weakness and shortness of breath. Patient states this started about 2 days ago. Patient states the shortness breath is worse with exertion. Patient denies any fever or chills. Patient denies any chest pain or heaviness. Patient denies any abdominal pain. Patient denies any recent trips or travel. Patient denies any calf tenderness or leg swelling. Patient denies any vomiting or diarrhea. Patient denies headache patient denies numbness weakness. Patient denies any lightheadedness or dizziness. (Jeovany Denis) - Related Data Home Medications Medication Instructions Recorded Confirmed ALPRAZolam [Xanax] 1 mg PO Q8HR PRN 02/16/18 07/03/18 Aspirin EC [Ecotrin Low Dose] 81 mg PO DAILY 02/16/18 07/03/18 Cholecalciferol (Vitamin D3) 2,000 unit PO DAILY 02/16/18 07/03/18 [Vitamin D3] Losartan Potassium 100 mg PO DAILY 02/16/18 07/03/18 Metoprolol Succinate (ER) [Toprol 25 mg PO HS 02/16/18 07/03/18 XL] Pravastatin Sodium 80 mg PO HS 02/16/18 07/03/18 Dicyclomine [Bentyl] 20 mg PO QID 07/03/18 07/03/18 Memantine [Namenda] 10 mg PO BID 07/03/18 07/03/18 Potassium Chloride [K-Tab ER] 20 meq PO DAILY 07/03/18 07/03/18 Sertraline 150mg 75 mg PO TID 07/03/18 07/03/18 Allergies Allergy/AdvReac Type Severity Reaction Status Date / Time No Known Allergies Allergy Verified 07/03/18 16:12 Review of Systems ROS Other: All systems not noted in ROS Statement are negative. <Jeovany Denis - Last Filed: 07/03/18 16:49> ROS Other: All systems not noted in ROS Statement are negative. <Jeovany Otto Vaibhav - Last Filed: 07/03/18 19:59> ROS Statement: Those systems with pertinent positive or pertinent negative responses have been documented in the HPI. Past Medical History Past Medical History: Coronary Artery Disease (CAD), Chest Pain / Angina, Hypertension Additional Past Medical History / Comment(s): Chronic Back Pain lately and recently saw Dr. Joyce for this, DDD, DJD, osteoporosis. History of Any Multi-Drug Resistant Organisms: None Reported Past Surgical History: Coronary Bypass/CABG, Heart Catheterization Additional Past Surgical History / Comment(s): 2005 CABG 2 vessel Past Anesthesia/Blood Transfusion Reactions: No Reported Reaction Past Psychological History: Anxiety, Depression Smoking Status: Never smoker Past Alcohol Use History: None Reported Past Drug Use History: None Reported - Past Family History Father Additional Family Medical History / Comment(s): Father had heart problems after the of his daughter. Mother Family Medical History: Myocardial Infarction (PA) Additional Family Medical History / Comment(s): Mother in her 60s from a PA. Sister(s) Additional Family Medical History / Comment(s): Sister comitted suicide. <DenisJeovany - Last Filed: 07/03/18 16:49> General Exam Limitations: no limitations <Sarthak Denise - Last Filed: 07/03/18 16:49> General appearance: alert, in no apparent distress Head exam: Present: atraumatic, normocephalic, normal inspection Eye exam: Present: normal appearance, PERRL, EOMI. Absent: scleral icterus, conjunctival injection, periorbital swelling ENT exam: Present: normal exam, mucous membranes dry, mucous membranes moist Neck exam: Present: normal inspection. Absent: tenderness, meningismus, lymphadenopathy Respiratory exam: Present: normal lung sounds bilaterally. Absent: respiratory distress, wheezes, rales, rhonchi, stridor Cardiovascular Exam: Present: regular rate, normal rhythm, normal heart sounds. Absent: systolic murmur, diastolic murmur, rubs, gallop, clicks GI/Abdominal exam: Present: soft, normal bowel sounds. Absent: distended, tenderness, guarding, rebound, rigid Extremities exam: Present: normal inspection, full ROM, normal capillary refill. Absent: tenderness, pedal edema, joint swelling, calf tenderness Back exam: Present: normal inspection Neurological exam: Present: alert, oriented X3, CN II-XII intact Psychiatric exam: Present: normal affect, normal mood Skin exam: Present: warm, dry, intact, normal color. Absent: rash <Jeovany Otto - Last Filed: 07/03/18 19:59> - General Exam Comments Initial Comments: GENERAL: Patient is well-developed and well-nourished. Patient is nontoxic and well- hydrated and is in mild distress. ENT: Neck is soft and supple. No significant lymphadenopathy is noted. Oropharynx is clear. Moist mucous membranes. Neck has full range of motion without eliciting any pain. EYES: The sclera were anicteric and conjunctiva were pink and moist. Extraocular movements were intact and pupils were equal round and reactive to light. Eyelids were unremarkable. PULMONARY: Unlabored respirations. Good breath sounds bilaterally. No audible rales rhonchi or wheezing was noted. CARDIOVASCULAR: There is a regular rate and rhythm without any murmurs gallops or rubs. ABDOMEN: Soft and nontender with normal bowel sounds. No palpable organomegaly was noted. There is no palpable pulsatile mass. SKIN: Skin is clear with no lesions or rashes and otherwise unremarkable. NEUROLOGIC: Patient is alert and oriented x3. Cranial nerves II through XII are grossly intact. Motor and sensory are also intact. Normal speech, volume and content. Symmetrical smile. MUSCULOSKELETAL: Normal extremities with adequate strength and full range of motion. No lower extremity swelling or edema. No calf tenderness. LYMPHATICS: No significant lymphadenopathy is noted PSYCHIATRIC: Patient seems mildly anxious (Jeovany Denis) Course <Jeovany Denis - Last Filed: 07/03/18 16:49> <Jeovany Otto - Last Filed: 07/03/18 19:59> Vital Signs 07/03/18 07/03/18 15:27 18:00 Temperature 97.5 F L Pulse Rate 102 H 75 Respiratory 20 20 Rate Blood Pressure 130/111 181/82 O2 Sat by Pulse 98 98 Oximetry - Reevaluation(s) Reevaluation #1: 07/03/18 19:57 Patient discussed and consult with at length regarding dehydration, patient going through loss of appetite, gingival inflammation secondary to recent losing all her teeth. (Jeovany Otto) Medical Decision Making <Jeovany Denis - Last Filed: 07/03/18 16:49> - Lab Data Result diagrams: 07/03/18 15:48 07/03/18 15:48 - Radiology Data Radiology results: report reviewed (CT of Chest abdomen pelvis negative, no contrast secondarily to renal function), image reviewed <Jeovany Otto - Last Filed: 07/03/18 19:59> - Medical Decision Making EKG shows normal sinus rhythm at 96 bpm RI interval is 156 QRS is 70 QT interval 350 QTC is 442. Patient's EKG shows some ST segment depression in precordial leads V2 through V6 these depressions were seen on a previous EKG. Dr. Otto will be taking over this patient at 9 PM (Jeovany Denis) 72 female the ER with malnutrition dehydration secondary to recent teeth extraction and denture placement, dentures are painful secondary to inflammation in appetite has been diminished. Patient will continue to work on diet home, does not want stay in the hospital at this time and can be discharged (Jeovany Otto) - Lab Data Lab Results 07/03/18 07/03/18 07/03/18 Range/Units 15:48 15:48 15:48 WBC 12.3 H (3.8-10.6) k/uL RBC 5.52 H (3.80-5.40) m/uL Hgb 15.3 (11.4-16.0) gm/dL Hct 46.0 (34.0-46.0) % MCV 83.3 (80.0-100.0) fL MCH 27.7 (25.0-35.0) pg MCHC 33.2 (31.0-37.0) g/dL RDW 14.6 (11.5-15.5) % Plt Count 323 (150-450) k/uL Neutrophils % 80 % Lymphocytes % 11 % Monocytes % 7 % Eosinophils % 1 % Basophils % 1 % Neutrophils # 9.8 H (1.3-7.7) k/uL Lymphocytes # 1.4 (1.0-4.8) k/uL Monocytes # 0.8 (0-1.0) k/uL Eosinophils # 0.1 (0-0.7) k/uL Basophils # 0.1 (0-0.2) k/uL PT (9.0-12.0) sec INR (<1.2) APTT (22.0-30.0) sec D-Dimer (<0.60) mg/L FEU Sodium 140 (137-145) mmol/L Potassium 4.5 (3.5-5.1) mmol/L Chloride 105 (98-107) mmol/L Carbon Dioxide 20 L (22-30) mmol/L Anion Gap 15 mmol/L BUN 36 H (7-17) mg/dL Creatinine 1.36 H (0.52-1.04) mg/dL Est GFR (CKD-EPI)AfAm 44 (>60 ml/min/1.73 sqM) Est GFR (CKD-EPI)NonAf 38 (>60 ml/min/1.73 sqM) Glucose 98 (74-99) mg/dL Calcium 10.1 (8.4-10.2) mg/dL Magnesium 2.0 (1.6-2.3) mg/dL Total Bilirubin 0.8 (0.2-1.3) mg/dL AST 46 H (14-36) U/L ALT 24 (9-52) U/L Alkaline Phosphatase 116 (38-126) U/L Total Creatine Kinase 40 (30-135) U/L CK-MB (CK-2) 1.7 (0.0-2.4) ng/mL CK-MB (CK-2) Rel Index 4.3 Troponin I 0.038 H* (0.000-0.034) ng/mL NT-Pro-B Natriuret Pep pg/mL Total Protein 7.3 (6.3-8.2) g/dL Albumin 4.1 (3.5-5.0) g/dL Urine Color Urine Appearance (Clear) Urine pH (5.0-8.0) Ur Specific Tracy (1.001-1.035) Urine Protein (Negative) Urine Glucose (UA) (Negative) Urine Ketones (Negative) Urine Blood (Negative) Urine Nitrite (Negative) Urine Bilirubin (Negative) Urine Urobilinogen (<2.0) mg/dL Ur Leukocyte Esterase (Negative) Urine RBC (0-5) /hpf Urine WBC (0-5) /hpf Ur Squamous Epith Cells (0-4) /hpf Amorphous Sediment (None) /hpf Hyaline Casts (0-2) /lpf Urine Mucus (None) /hpf 07/03/18 07/03/18 07/03/18 Range/Units 15:48 15:48 19:10 WBC (3.8-10.6) k/uL RBC (3.80-5.40) m/uL Hgb (11.4-16.0) gm/dL Hct (34.0-46.0) % MCV (80.0-100.0) fL MCH (25.0-35.0) pg MCHC (31.0-37.0) g/dL RDW (11.5-15.5) % Plt Count (150-450) k/uL Neutrophils % % Lymphocytes % % Monocytes % % Eosinophils % % Basophils % % Neutrophils # (1.3-7.7) k/uL Lymphocytes # (1.0-4.8) k/uL Monocytes # (0-1.0) k/uL Eosinophils # (0-0.7) k/uL Basophils # (0-0.2) k/uL PT 10.3 (9.0-12.0) sec INR 1.1 (<1.2) APTT 21.7 L (22.0-30.0) sec D-Dimer 3.30 H (<0.60) mg/L FEU Sodium (137-145) mmol/L Potassium (3.5-5.1) mmol/L Chloride (98-107) mmol/L Carbon Dioxide (22-30) mmol/L Anion Gap mmol/L BUN (7-17) mg/dL Creatinine (0.52-1.04) mg/dL Est GFR (CKD-EPI)AfAm (>60 ml/min/1.73 sqM) Est GFR (CKD-EPI)NonAf (>60 ml/min/1.73 sqM) Glucose (74-99) mg/dL Calcium (8.4-10.2) mg/dL Magnesium (1.6-2.3) mg/dL Total Bilirubin (0.2-1.3) mg/dL AST (14-36) U/L ALT (9-52) U/L Alkaline Phosphatase (38-126) U/L Total Creatine Kinase (30-135) U/L CK-MB (CK-2) (0.0-2.4) ng/mL CK-MB (CK-2) Rel Index Troponin I (0.000-0.034) ng/mL NT-Pro-B Natriuret Pep 845 pg/mL Total Protein (6.3-8.2) g/dL Albumin (3.5-5.0) g/dL Urine Color Yellow Urine Appearance Cloudy H (Clear) Urine pH 5.0 (5.0-8.0) Ur Specific Tracy 1.012 (1.001-1.035) Urine Protein Negative (Negative) Urine Glucose (UA) Negative (Negative) Urine Ketones Negative (Negative) Urine Blood Negative (Negative) Urine Nitrite Negative (Negative) Urine Bilirubin Negative (Negative) Urine Urobilinogen <2.0 (<2.0) mg/dL Ur Leukocyte Esterase Trace H (Negative) Urine RBC 1 (0-5) /hpf Urine WBC 10 H (0-5) /hpf Ur Squamous Epith Cells 18 H (0-4) /hpf Amorphous Sediment Rare H (None) /hpf Hyaline Casts 8 H (0-2) /lpf Urine Mucus Rare H (None) /hpf Disposition <Jeovany Denis - Last Filed: 07/03/18 16:49> Is patient prescribed a controlled substance at d/c from ED?: No <Jeovany Otto - Last Filed: 07/03/18 19:59> Clinical Impression: Dehydration, Malnutrition, Anorexia, Gum inflammation Disposition: HOME SELF-CARE Condition: Good Instructions: Gingivitis (ED), Dehydration (ED), Malnutrition (DC) Referrals: Micky Lagos MD [Primary Care Provider] - 1-2 days
[2018-07-03 17:01] LABS: Basophils # (A) 0.1 k/uL (0-0.2); Basophils % (A) 1 %; Eosinophils # (A) 0.1 k/uL (0-0.7); Eosinophils % (A) 1 %; HGB 15.3 gm/dL (11.4-16.0); Lymphocytes # (A) 1.4 k/uL (1.0-4.8); Lymphocytes % (A) 11 %; MCH 27.7 pg (25.0-35.0); MCHC 33.2 g/dL (31.0-37.0); MCV 83.3 fL (80.0-100.0); Mean Platelet Volume 7.7; Monocytes # (A) 0.8 k/uL (0-1.0); Monocytes % (A) 7 %; Neutrophils # (A) 9.8 k/uL (1.3-7.7); Neutrophils % (A) 80 %; Platelet Count 323 k/uL (150-450); RBC 5.52 m/uL (3.80-5.40); RDW 14.6 % (11.5-15.5); WBC 12.3 k/uL (3.8-10.6)
[2018-07-03 17:12] LABS: Calcium 10.1 mg/dL (8.4-10.2); Total Bilirubin 0.8 mg/dL (0.2-1.3)
--- NOTE | 2018-07-03 17:13 | XR ---
EXAMINATION TYPE: XR chest 2V DATE OF EXAM: 07/03/2018 COMPARISON: Chest x-ray February 16, 2018 HISTORY: Difficulty in breathing for weeks. TECHNIQUE: Frontal and lateral views of the chest are obtained. FINDINGS: Post CABG changes with mediastinal clips and sternal wires is redemonstrated. There is no focal air space opacity, pleural effusion, or pneumothorax seen. The cardiac silhouette size is with in normal limits. The osseous structures remaining demineralized. Multilevel disc space narrowing i n the thoracic spine is redemonstrated. Soft tissue calcifications or loose bodies right proximal upp er extremity are again seen. IMPRESSION: Chronic changes without acute pulmonary process. No significant change from prior.
[2018-07-03 17:15] LABS: Potassium 4.5 mmol/L (3.5-5.1)
[2018-07-03 17:16] LABS: Albumin 4.1 g/dL (3.5-5.0); Total Protein 7.3 g/dL (6.3-8.2)
[2018-07-03 17:23] LABS: INR 1.1 (<1.2); Prothrombin Time 10.3 sec (9.0-12.0)
[2018-07-03 17:27] LABS: Creatine Kinase MB 1.7 ng/mL (0.0-2.4); D-Dimer 3.3 mg/L FEU (<0.60); Partial Thromboplastin Time 21.7 sec (22.0-30.0)
[2018-07-03 17:32] LABS: Troponin I 0.038 ng/mL (0.000-0.034)
[2018-07-03] MEDS ORDERED: SODIUM CHLORIDE 0.9% 500 ML IV STA (17:33)
[2018-07-03] MEDS ORDERED: SODIUM CHLORIDE 0.9% 1,000 ML IV STA ×2 (17:33)
--- NOTE | 2018-07-03 18:27 | CT ---
EXAMINATION TYPE: CT ChestAbdPelvis wo con DATE OF EXAM: 07/03/2018 COMPARISON: NONE HISTORY: Generalized weakness and shortness of breath. CT DLP: 216.7 mGycm. Automated Exposure Control for Dose Reduction was Utilized. TECHNIQUE: CT scan of the thorax, abdomen and pelvis is performed without oral or IV contrast. FINDINGS: Within the limitations of a noncontrast study, the following observations are made. LUNGS: The lungs are grossly clear, there is no concerning parenchymal mass or nodule identified. T here is no pleural effusion or pneumothorax seen. The tracheobronchial tree is patent. MEDIASTINUM: Post-CABG changes with mediastinal clips and sternal wires is present. There are no grea ter than 1 cm hilar or mediastinal lymph nodes. Some lack of sensitivity related to lack of IV contra st is noted. No pericardial effusion is seen. OTHER: Cannot exclude oval solid mass or cyst left breast axial image 27 measuring 10 x 5 mm. Outpati ent follow-up advised. LIVER/GB: Dependent gallstones and gallbladder present. PANCREAS: Suboptimal evaluation without IV contrast. There is perhaps mild fat stranding in pancreati c head axial image 62. SPLEEN: No significant abnormality is seen. ADRENALS: No significant abnormality is seen. KIDNEYS: No significant abnormality is seen. BOWEL: Evaluation of bowel is suboptimal secondary to lack of enteric contrast. Stomach is poorly dis tended and suboptimally evaluated. There is mild to moderate wall thickening from cecum through the m id transverse colon. Cannot exclude colitis at this level. There is no suspicious small or large carloz l dilatation. GENITAL ORGANS: Anteverted partially calcified uterus is present. LYMPH NODES: No greater than 1cm abdominal or pelvic lymph nodes are appreciated. OSSEOUS STRUCTURES: Osseous structures are demineralized. S-shaped scoliosis is present. There is mul tilevel spurring and disc space narrowing. There is facet arthropathy lower lumbar levels. There is m oderate joint space loss in both hips. OTHER: No significant additional abnormality is seen. IMPRESSION: 1. Suboptimal study. Possible mild proximal acute colitis versus product of nondistention, correlate clinically. Perhaps mild fat stranding or pancreatic head, correlate to exclude mild acute pancreati tis versus focal duodenitis. Correlate clinically. 2. Possible left breast lesion correlate clinically, nonemergent mammography and ultrasound follow-up is advised.
[2018-07-03 19:33] LABS: Appearance,Urine Cloudy (Clear); Bilirubin,Urine Negative (Negative); Color,Urine Yellow; Glucose,Urine (UA) Negative (Negative); Ketones,Urine Negative (Negative); Protein,Urine Negative (Negative); Specific Gravity,Urine 1.012 (1.001-1.035)
[2018-07-03 19:34] LABS: Amorphous Sediment,Urine Rare /hpf; Blood,Urine Negative (Negative); Hyaline Casts,Urine 8 /lpf (0-2); Leukocyte Esterase,Urine Trace (Negative); Mucus,Urine Rare /hpf; Nitrite,Urine Negative (Negative); RBC,Urine 1 /hpf (0-5); Squamous Epithelial Cell,Urine 18 /hpf (0-4); Urobilinogen,Urine <2.0 mg/dL (<2.0); WBC,Urine 10 /hpf (0-5)
[2018-07-03 20:14] VITALS: BP 164/83; PULSE 88; TEMP 98.2
== END 2018-07-03 20:16 | disposition home or self-care (01) ==
LOC: EC 15:01
DX: K05.10 Chronic gingivitis, plaque induced (principal); E86.0 Dehydration; E46 Unspecified protein-calorie malnutrition; R06.02 Shortness of breath; I25.119 Atherosclerotic heart disease of native coronary artery with unspecified angina pectoris; I10 Essential (primary) hypertension; F41.9 Anxiety disorder, unspecified; F32.9 Major depressive disorder, single episode, unspecified; G89.29 Other chronic pain; Z79.899 Other long term (current) drug therapy; Z79.82 Long term (current) use of aspirin; Z98.61 Coronary angioplasty status; Z98.890 Other specified postprocedural states
CPT/HCPCS: 36415; 71046; 71250; 74176; 80053; 81001; 82550; 82553; 83735; 83880; 84484; 85025; 85379; 85610; 85730; 93005; 96360; 96361; 99285

== ENCOUNTER → 2018-07-25 | Outpatient (CLI) | payer MEDICARE ==
--- NOTE | 2018-07-26 09:44 | MM ---
Reason for exam: clinical finding. Baseline mammogram. History: Patient is postmenopausal and history of other cancer. Physical Findings: Nurse Summary: 2.5cm nodule in the left breast at 1 o'clock (nurse kp). MG 3D Diag Mammo W/Cad KAREN Bilateral CC and MLO view(s) were taken. There are scattered fibroglandular densities. There is a 2.0cm left upper outer quadrant mass at anterior depth with associated calcifications. Lobular mass medial and anterior on spot CC 16/35 corresponds to ductal ectasia on ultrasound. These results were verbally communicated with the patient and result sheet given to the patient on 07/25/18. ASSESSMENT: Highly suggestive of malignancy, BI-RAD 5 RECOMMENDATION: Ultrasound core biopsy of the left breast. Called with mammographic findings and has scheduled an appointment for the patient for 07/31/18 at 3:[address] Arevalo. PRELIMINARY REPORT CALLED AND FAXED TO DR. AREVALO ON 07/25/18.
--- NOTE | 2018-07-26 09:45 | USB ---
Reason for exam: clinical finding. History: Patient is postmenopausal and history of other cancer. US Breast LT Left complete breast ultrasound includes all four quadrants, the retroareolar region and axilla. Finding demonstrates a 2.0 x 0.8 x 0.3cm mixed, solid, suspicious lesion at 12 o'clock that corresponds to mammogram and duct ectasia at 12 o'clock that corresponds to mammogram. These results were verbally communicated with the patient and result sheet given to the patient on 07/25/18. ASSESSMENT: Highly suggestive of malignancy, BI-RAD 5 RECOMMENDATION: Ultrasound core biopsy of the left breast. Called with mammographic findings and has scheduled an appointment for the patient for 07/31/18 at 3:[address] Arevalo. PRELIMINARY REPORT CALLED AND FAXED TO DR. AREVLAO ON 07/25/18.
== END | disposition home or self-care (01) ==
LOC: RADMAMWWP 14:02
PROVIDERS: ATTEND Family Medicine
DX: N63.21 Unspecified lump in the left breast, upper outer quadrant (principal)
CPT/HCPCS: 77066; 76641; G0279; 77062

== ENCOUNTER → 2018-08-21 | Day surgery (SDC) | payer MEDICARE ==
[2018-08-21 11:40] VITALS: RESP 16; BMI 19.3
[2018-08-21 13:39] VITALS: BP 150/72; PULSE 67; TEMP 98.3
--- NOTE | 2018-08-21 16:11 | USB ---
EXAMINATION TYPE: US biopsy breast VAD LT, US biopsy breast add'l VAD LT MG diagnostic mammo LT wo CAD DATE OF EXAM: 08/21/2018 CLINICAL HISTORY: 52-year-old female R92.8 Abnormal Mammogram, N63 Breast mass/lump. TECHNIQUE: Ultrasound guided core biopsy of the left breast. COMPARISON: 07/25/[address] 07/03/2018 FINDINGS: The procedure of ultrasound guided core biopsy was explained to the patient. Benefits, alt ernatives, and risks were discussed. An informed consent was then obtained. The elongated, heterogeneous area at 1:00 zone in the left breast is identified. This was targeted fo r biopsy as was a second possible satellite area heterogeneity measuring 6 mm located 2 cm away. The patient was placed in supine positioning for imaging and for the procedure. The overlying skin was prepped and draped in usual sterile fashion. Lidocaine buffered with bicarbonate was used as ane sthetic into the skin and subcutaneous tissue up to area of concern in the 1:00 left breast, at each site interim. SITE A, 1:00 peripheral larger lesion -- Under ultrasound guidance, a 13-gauge vacuum-assisted mammot ome Elite biopsy gun device was used to obtain 5 core samples. Following this, a coil clip was left at the site of biopsy. SITE B, 1:00 central smaller lesion -- Under ultrasound guidance, a 13-gauge vacuum-assisted mammotom e Elite biopsy gun device was used to obtain 4 core samples. Following this, a ribbon clip was left at the site of biopsy. The patient tolerated the procedure well without any immediate complication. The patient was kept in the radiology department for short stay after the procedure and then discharged home in stable condi tion. Postprocedural mammogram shows microclips in position at the site of mammographic focal asymmetries. IMPRESSION: Successful, uncomplicated ultrasound guided core biopsy of 2 adjacent 1:00 areas of concern in the le ft breast located approximately 2 cm away from each other. Initially identified on CT chest of 018. Full pathology results to follow.
== END ==
LOC: RADUSWWP 11:19
PROVIDERS: ATTEND Family Medicine
DX: N60.32 Fibrosclerosis of left breast (principal); N64.1 Fat necrosis of breast; N63.20 Unspecified lump in the left breast, unspecified quadrant
CPT/HCPCS: 88305; 77065; 19083; 19084; A4648; J2001

== ENCOUNTER → 2021-09-04 | Outpatient (CLI) | payer MEDICARE ==
[~2021-09-04] MED LIST: SODIUM CHLORIDE 0.9% 50 ML IVPB NR; SODIUM CHLORIDE 0.9% 500 ML 500 ML in EMPTY BAG 1 BAG IV PRN; SOTROVIMAB (EUA) 500 MG in SODIUM CHLORIDE 0.9% 100 ML IVPB NR
[2021-09-04 10:25] VITALS: TEMP 98.6
[2021-09-04 10:47] VITALS: RESP 16
[2021-09-04 11:29] VITALS: BP 173/83; PULSE 84
== END ==
LOC: PROCWHC3 10:03
PROVIDERS: ATTEND Family Medicine
DX: U07.1 COVID-19 (principal)
CPT/HCPCS: 96360; Q0247; M0247

== ENCOUNTER 2023-12-19 15:31 | Inpatient (IN) | payer MEDICARE ==
--- NOTE | 2023-12-19 15:59 | ED ---
Abdominal Pain HPI - General Chief Complaint: Abdominal Pain Stated Complaint: Chest Pain/Abd Pain Time Seen by Provider: 12/19/23 15:35 Source: patient, RN notes reviewed Mode of arrival: EMS Limitations: no limitations - History of Present Illness Initial Comments: This is an 78-year-old female who presents to the emergency department for chest pain and abdominal pain. States that over the last week she has had pain in the epigastric region that has been fairly persistent. States that she has also been having chest pain over the last week and is unsure if this may be related to the abdominal pain. Denies any shortness of breath associated with this. States that this is more of a burning pain. She does have a substantial cardiac history, and states that the pain feels different. However, she has not followed up with cardiology in several years. She went to urgent care today and was advised that this is likely indigestion. She took a dose of omeprazole without any relief. However, she only took 1 dose of this. Patient's blood pressure is notably elevated on arrival. States that she does not take any medication for her blood pressure. MD Complaint: abdominal pain - Related Data Home Medications Medication Instructions Recorded Confirmed Ascorbic Acid [Vitamin C] 1,000 mg PO DAILY 12/19/23 12/19/23 Cholecalciferol [Vitamin D3 (25 50 mcg PO DAILY 12/19/23 12/19/23 Mcg = 1000 Iu)] Melatonin 3 mg PO HS 12/19/23 12/19/23 Vit A/Vit C/Vit E/Zinc/Copper 1 cap PO DAILY 12/19/23 12/19/23 [ICAPS SOFTGEL] Vitamin B Complex 1 cap PO DAILY 12/19/23 12/19/23 Allergies Allergy/AdvReac Type Severity Reaction Status Date / Time No Known Allergies Allergy Verified 12/19/23 16:25 Review of Systems ROS Statement: Those systems with pertinent positive or pertinent negative responses have been documented in the HPI. ROS Other: All systems not noted in ROS Statement are negative. Past Medical History Past Medical History: Coronary Artery Disease (CAD), Chest Pain / Angina, Hypertension Additional Past Medical History / Comment(s): Chronic Back Pain lately and recently saw Dr. Joyce for this, DDD, DJD, osteoporosis. History of Any Multi-Drug Resistant Organisms: None Reported Past Surgical History: Coronary Bypass/CABG, Heart Catheterization Additional Past Surgical History / Comment(s): 2005 CABG 2 vessel Past Anesthesia/Blood Transfusion Reactions: No Reported Reaction Past Psychological History: Anxiety, Depression Smoking Status: Never smoker Past Alcohol Use History: None Reported Past Drug Use History: None Reported - Past Family History Father Additional Family Medical History / Comment(s): Father had heart problems after the of his daughter. Mother Family Medical History: Myocardial Infarction ([place]) Additional Family Medical History / Comment(s): Mother in her 60s from a [place]. Sister(s) Additional Family Medical History / Comment(s): Sister comitted suicide. General Exam Limitations: no limitations General appearance: alert, in no apparent distress Head exam: Present: atraumatic, normocephalic, normal inspection Respiratory exam: Present: normal lung sounds bilaterally. Absent: respiratory distress, wheezes, rales, rhonchi, stridor Cardiovascular Exam: Present: regular rate, normal rhythm, normal heart sounds. Absent: systolic murmur, diastolic murmur, rubs, gallop, clicks GI/Abdominal exam: Present: soft, tenderness (epigastric), normal bowel sounds. Absent: distended Neurological exam: Present: alert, oriented X3, CN II-XII intact Psychiatric exam: Present: normal affect, normal mood Skin exam: Present: warm, dry, intact, normal color. Absent: rash Course Vital Signs 12/19/23 12/19/23 12/19/23 15:34 16:47 17:00 Temperature 97.8 F Pulse Rate 75 97 94 Respiratory 20 16 22 Rate Blood Pressure 250/109 165/94 167/82 O2 Sat by Pulse 97 98 98 Oximetry Medical Decision Making - Medical Decision Making This is an 78 year old female who presents to the emergency department for abdominal pain and chest pain. Was pt. sent in by a medical professional or institution? @ -No Did you speak to anyone other than the patient for history? @ -No Did you review nursing and triage notes? @ -Yes, and I agree, it is accurate with regards to the patient's symptoms. Were old charts reviewed? @ -No Differential Diagnosis? @ -Differential Abdominal Pain Women: Appendicitis, Cholecystitis, diverticulosis, ischemic bowel, pancreatitis, hepatitis, UTI, gastroenteritis, AAA, incarcerated hernia, bowel obstruction, constipation, inflammatory bowel, hepatitis, peptic ulcer disease, splenic infar ction, perforated viscus, vulvitis, ovarian torsion, PID, kidney stone, placenta abruption, this is not meant to be an all-inclusive list -Differential Chest Pain: Stable Angina, Unstable Angina, STEMI, NSTEMI Aortic Dissection, Pneumothorax, Musculoskeletal, Esophageal Spasm GERD, Cholecystitis, Pancreatitis, Zoster, this is not meant to be an all-inclusive list. EKG interpreted by me (3pts min.)? @ -EKG interpreted by me demonstrating the following: Sinus rhythm. Ventricular rate 60 bpm, HI interval 180 ms, QRS duration 85 ms, QTc 419 ms. X-rays interpreted by me (1pt min.)? @ -Chest x-ray obtained, my interpretation identifies no localized consolidations or infiltrates. CT interpreted by me (1pt min.)? @ -Not obtained U/S interpreted by me (1pt. min.)? @ -Gallbladder ultrasound obtained. My interpretation identifies cholelithiasis What testing was considered but not performed? (CT, X-rays, U/S, labs)? Why? @ -None What meds were considered but not given? Why? @ -None Did you discuss the management of the patient with other professionals? @ -Yes, Dr. Lagos, who accepts the patient for admission. Did you reconcile home meds? @ -Yes Was smoking cessation discussed for >3mins.? @ -No Was critical care preformed (if so, how long)? @ -No Were there social determinants of health that impacted care today? How? (Homelessness, low income, unemployed, alcoholism, drug addiction, transportation, low edu. Level, literacy, decrease access to med. care, detention, rehab)? @ -No Was there de-escalation of care discussed even if they declined? (Discuss DNR or withdrawal of care, Hospice)? @ -No What co-morbidities impacted this encounter? (DM, HTN, Smoking, COPD, CAD, Cancer, CVA, Hep., AIDS, mental health diagnosis, sleep apnea, morbid obesity)? @ -CAD, HTN Was patient admitted / discharged? @ -Admitted. Lab work demonstrates leukocytosis. Pancreatic enzymes are mildly elevated. Chest x-ray reveals no acute process. Gallbladder ultrasound demonstrates cholelithiasis with a gallstone in the gallbladder neck. We did give the patient a GI cocktail, and she had no improvement in symptoms. She was very hypertensive on arrival with a blood pressure of 250/109. 10 mg of hydralazine was administered with improvement in blood pressure. Given the patient's substantial cardiac history without recent cardiac follow-up as well as intractable abdominal pain with a large gallstone in the gallbladder neck, patient admitted to medicine for further evaluation and management. Consult placed for cardiology and serial troponins were ordered. Consult for general surgery placed as well regarding the cholelithiasis. Undiagnosed new problem with uncertain prognosis? @ -None Drug Therapy requiring intensive monitoring for toxicity (Heparin, Nitro, Insulin, Cardizem)? @ -None Were any procedures done? @ -None Diagnosis/symptom? @ -Chest pain, cholelithiasis Acute, or Chronic, or Acute on Chronic? @ -Acute Uncomplicated (without systemic symptoms) or Complicated (systemic symptoms)? @ -Complicated Side effects of treatment? @ -None Exacerbation, Progression, or Severe Exacerbation] @ -Not applicable Poses a threat to life or bodily function? @ -Yes This case was discussed in detail with the attending ED physician, Dr. Otto. Presentation, findings, and treatment plan discussed in detail as well. - Lab Data Result diagrams: 12/19/23 15:54 12/19/23 15:54 Lab Results 12/19/23 12/19/23 12/19/23 Range/Units 15:54 15:54 15:54 WBC 13.6 H (3.8-10.6) k/uL RBC 5.46 H (3.80-5.40) m/uL Hgb 15.2 (11.4-16.0) gm/dL Hct 46.2 H (34.0-46.0) % MCV 84.7 (80.0-100.0) fL MCH 27.8 (25.0-35.0) pg MCHC 32.9 (31.0-37.0) g/dL RDW 13.9 (11.5-15.5) % Plt Count 217 (150-450) k/uL MPV 7.7 Neutrophils % 90 % Lymphocytes % 6 % Monocytes % 3 % Eosinophils % 1 % Basophils % 0 % Neutrophils # 12.2 H (1.3-7.7) k/uL Lymphocytes # 0.7 L (1.0-4.8) k/uL Monocytes # 0.4 (0-1.0) k/uL Eosinophils # 0.1 (0-0.7) k/uL Basophils # 0.0 (0-0.2) k/uL PT 11.1 (10.0-12.5) sec INR 1.0 (<1.2) APTT 18.2 L (22.0-30.0) sec Sodium 143 (137-145) mmol/L Potassium 3.6 (3.5-5.1) mmol/L Chloride 104 (98-107) mmol/L Carbon Dioxide 27 (22-30) mmol/L Anion Gap 12 mmol/L BUN 14 (7-17) mg/dL Creatinine 0.66 (0.52-1.04) mg/dL Est GFR (CKD-EPI)AfAm >90 (>60 ml/min/1.73 sqM) Est GFR (CKD-EPI)NonAf 84 (>60 ml/min/1.73 sqM) Glucose 144 H (74-99) mg/dL Plasma Lactic Acid Magno (0.7-2.0) mmol/L Calcium 9.6 (8.4-10.2) mg/dL Magnesium 1.6 (1.6-2.3) mg/dL Total Bilirubin 1.0 (0.2-1.3) mg/dL AST 29 (14-36) U/L ALT 16 (4-34) U/L Alkaline Phosphatase 95 (38-126) U/L Troponin I (0.000-0.034) ng/mL Total Protein 6.7 (6.3-8.2) g/dL Albumin 4.1 (3.5-5.0) g/dL Amylase 112 H (30-110) U/L Lipase 463 H (23-300) U/L Urine Color Urine Appearance (Clear) Urine pH (5.0-8.0) Ur Specific [place] (1.001-1.035) Urine Protein (Negative) Urine Glucose (UA) (Negative) Urine Ketones (Negative) Urine Blood (Negative) Urine Nitrite (Negative) Urine Bilirubin (Negative) Urine Urobilinogen (<2.0) mg/dL Ur Leukocyte Esterase (Negative) Urine RBC (0-5) /hpf Urine WBC (0-5) /hpf Ur Squamous Epith Cells (0-4) /hpf Urine Mucus (None) /hpf 12/19/23 12/19/2312/18/24 Range/Units 15:54 15:55 16:45 WBC (3.8-10.6) k/uL RBC (3.80-5.40) m/uL Hgb (11.4-16.0) gm/dL Hct (34.0-46.0) % MCV (80.0-100.0) fL MCH (25.0-35.0) pg MCHC (31.0-37.0) g/dL RDW (11.5-15.5) % Plt Count (150-450) k/uL MPV Neutrophils % % Lymphocytes % % Monocytes % % Eosinophils % % Basophils % % Neutrophils # (1.3-7.7) k/uL Lymphocytes # (1.0-4.8) k/uL Monocytes # (0-1.0) k/uL Eosinophils # (0-0.7) k/uL Basophils # (0-0.2) k/uL PT (10.0-12.5) sec INR (<1.2) APTT (22.0-30.0) sec Sodium (137-145) mmol/L Potassium (3.5-5.1) mmol/L Chloride (98-107) mmol/L Carbon Dioxide (22-30) mmol/L Anion Gap mmol/L BUN (7-17) mg/dL Creatinine (0.52-1.04) mg/dL Est GFR (CKD-EPI)AfAm (>60 ml/min/1.73 sqM) Est GFR (CKD-EPI)NonAf (>60 ml/min/1.73 sqM) Glucose (74-99) mg/dL Plasma Lactic Acid Magno 2.0 (0.7-2.0) mmol/L Calcium (8.4-10.2) mg/dL Magnesium (1.6-2.3) mg/dL Total Bilirubin (0.2-1.3) mg/dL AST (14-36) U/L ALT (4-34) U/L Alkaline Phosphatase (38-126) U/L Troponin I <0.012 (0.000-0.034) ng/mL Total Protein (6.3-8.2) g/dL Albumin (3.5-5.0) g/dL Amylase (30-110) U/L Lipase (23-300) U/L Urine Color Colorless Urine Appearance Cloudy H (Clear) Urine pH 7.0 (5.0-8.0) Ur Specific [place] 1.010 (1.001-1.035) Urine Protein 1+ H (Negative) Urine Glucose (UA) Negative (Negative) Urine Ketones 2+ H (Negative) Urine Blood Negative (Negative) Urine Nitrite Negative (Negative) Urine Bilirubin Negative (Negative) Urine Urobilinogen <2.0 (<2.0) mg/dL Ur Leukocyte Esterase Negative (Negative) Urine RBC 1 (0-5) /hpf Urine WBC 7 H (0-5) /hpf Ur Squamous Epith Cells 1 (0-4) /hpf Urine Mucus Rare H (None) /hpf - Radiology Data Radiology results: report reviewed, image reviewed Disposition Clinical Impression: Chest pain, Cholelithiasis, Hypertension, uncontrolled Disposition: ADMITTED IP TO THIS [facility] Time of Disposition: 17:34
[2023-12-19 16:01] LABS: Basophils % (A) 0 %; Eosinophils # (A) 0.1 k/uL (0-0.7); Eosinophils % (A) 1 %; HCT 46.2 % (34.0-46.0); HGB 15.2 gm/dL (11.4-16.0); Lymphocytes # (A) 0.7 k/uL (1.0-4.8); Lymphocytes % (A) 6 %; MCH 27.8 pg (25.0-35.0); MCHC 32.9 g/dL (31.0-37.0); MCV 84.7 fL (80.0-100.0); Mean Platelet Volume 7.7; Monocytes # (A) 0.4 k/uL (0-1.0); Monocytes % (A) 3 %; Neutrophils # (A) 12.2 k/uL (1.3-7.7); Neutrophils % (A) 90 %; Platelet Count 217 k/uL (150-450); RBC 5.46 m/uL (3.80-5.40); RDW 13.9 % (11.5-15.5); WBC 13.6 k/uL (3.8-10.6)
[2023-12-19 16:10] LABS: ALT 16 U/L (4-34); AST 29 U/L (14-36); African American GFR (CKD) >90 (>60 ml/min/1.73 sqM); Albumin 4.1 g/dL (3.5-5.0); Alkaline Phosphatase 95 U/L (38-126); Amylase 112 U/L (30-110); Anion Gap 12 mmol/L; Blood Urea Nitrogen 14 mg/dL (7-17); Calcium 9.6 mg/dL (8.4-10.2); Carbon Dioxide 27 mmol/L (22-30); Chloride 104 mmol/L (98-107); Glucose 144 mg/dL (74-99); Lipase 463 U/L (23-300); Magnesium 1.6 mg/dL (1.6-2.3); Non-African American GFR(CKD) 84 (>60 ml/min/1.73 sqM); Potassium 3.6 mmol/L (3.5-5.1); Sodium 143 mmol/L (137-145); Total Protein 6.7 g/dL (6.3-8.2)
[2023-12-19] MEDS: hydrALAZINE HCL 20 MG/ML 1 ML VIAL IVP STA ×2 (16:16→19:57)
[2023-12-19] MEDS: MAG HYDROX/AL HYDROX/SIMETH 30 ML, HYOSCYAMINE ELIXIR 10 ML, LIDOCAINE VISCOUS 2% 10 ML PO STA (16:17)
--- NOTE | 2023-12-19 16:17 | XR ---
EXAMINATION TYPE: XR chest 2V DATE OF EXAM: 12/19/2023 4:12 PM CLINICAL INDICATION:Female, 78 years old with history of Chest Pain; [facility] COMPARISON: Chest radiographs from 07/03/2018 TECHNIQUE: XR chest 2V Frontal and lateral views of the chest. FINDINGS: Lungs/Pleura: There is no evidence of pleural effusion, focal consolidation, or pneumothorax. Pulmonary vascularity: Unremarkable. Heart/mediastinum: Cardiomediastinal silhouette is unremarkable. Musculoskeletal: No acute osseous pathology. Midline sternotomy wires are noted. IMPRESSION: No acute cardiopulmonary disease/process.
[2023-12-19 16:20] LABS: Prothrombin Time 11.1 sec (10.0-12.5)
[2023-12-19 16:29] LABS: Partial Thromboplastin Time 18.2 sec (22.0-30.0)
--- NOTE | 2023-12-19 17:02 | US ---
EXAMINATION TYPE: US gallbladder DATE OF EXAM: 12/19/2023 COMPARISON: NONE CLINICAL INDICATION: Female, 78 years old with history of Epigastric pain; pain examine limited patie nt drank Pepto-Bismol right before ultrasound limited due to stomach gas. TECHNIQUE: Multiple sonographic images of the right upper quadrant are obtained. FINDINGS: EXAM MEASUREMENTS: Liver Length: 9.2 cm Gallbladder Wall: .3 cm CBD: cm Right Kidney: 8.4 x 4.2 x 2.7 cm DISPATCH CLERK NOTES: Pancreas: Obscured by bowel gas Liver: limited due to bowel gas from stomach Gallbladder: Low level echoes seen Evidence for sonographic Timmons's sign: CBD: 0.2 cm Right Kidney: Limited due to bowel gas from stomach. IMPRESSION: Cholelithiasis with gallstone in the gallbladder neck.
[2023-12-19 17:16] LABS: Appearance,Urine Cloudy (Clear); Bilirubin,Urine Negative (Negative); Blood,Urine Negative (Negative); Color,Urine Colorless; Glucose,Urine (UA) Negative (Negative); Ketones,Urine 2+ (Negative); Leukocyte Esterase,Urine Negative (Negative); Mucus,Urine Rare /hpf; Nitrite,Urine Negative (Negative); Protein,Urine 1+ (Negative); RBC,Urine 1 /hpf (0-5); Squamous Epithelial Cell,Urine 1 /hpf (0-4); Urobilinogen,Urine <2.0 mg/dL (<2.0); WBC,Urine 7 /hpf (0-5)
[2023-12-19] MEDS ORDERED: ONDANSETRON 4 MG/2 ML VIAL IVP PRN (17:34)
[2023-12-19] MEDS ORDERED: ACETAMINOPHEN TAB 325 MG TAB PO PRN (17:34)
[2023-12-19] MEDS ORDERED: NALOXONE 0.4 MG/ML 1 ML VIAL IV PRN (17:34)
[2023-12-19] MEDS: MORPHINE SULFATE 4 MG/ML SYRINGE IVP STA (18:05)
[2023-12-19] MEDS: MORPHINE SULFATE 4 MG/ML SYRINGE IV PRN (21:40)
[2023-12-19] MEDS: MELATONIN 3 MG TABLET PO SCH (21:40)
[2023-12-20] MEDS ORDERED: HEPARIN SODIUM 1,000 UN/ML (10ML VL) IV PRN (04:41)
[2023-12-20] MEDS: HEPARIN SOD,PORK IN 0.45% NACL 25,000 UNIT in 0.45% NACL 1 250ML.BAG IV SCH (05:39)
[2023-12-20] MEDS: METOPROLOL TARTRATE 25 MG TAB PO SCH (05:41)
[2023-12-20 07:08] LABS: Basophils % (A) 0 %; Eosinophils % (A) 0 %; HGB 14.6 gm/dL (11.4-16.0); Lymphocytes # (A) 1.5 k/uL (1.0-4.8); Lymphocytes % (A) 8 %; MCH 28.5 pg (25.0-35.0); MCHC 33.2 g/dL (31.0-37.0); MCV 85.7 fL (80.0-100.0); Mean Platelet Volume 8.5; Monocytes # (A) 1.2 k/uL (0-1.0); Monocytes % (A) 6 %; Neutrophils # (A) 16.5 k/uL (1.3-7.7); Neutrophils % (A) 84 %; Platelet Count 300 k/uL (150-450); RBC 5.13 m/uL (3.80-5.40); RDW 14.6 % (11.5-15.5); WBC 19.6 k/uL (3.8-10.6)
[2023-12-20 07:22] LABS: INR 1.3 (<1.2); Partial Thromboplastin Time 26.9 sec (22.0-30.0)
[2023-12-20] MEDS: FOLIC ACID-VIT B COMPLEX-VIT C 1 CAP PO SCH (08:45)
[2023-12-20] MEDS: VIT A,C & E-LUTEIN-MINERALS 1 EACH TAB PO SCH (08:45)
[2023-12-20] MEDS: ATORVASTATIN 40 MG TAB PO SCH (08:45)
[2023-12-20] MEDS: METOPROLOL SUCCINATE (ER) 25 MG TAB.ER.24H PO SCH (08:45)
[2023-12-20] MEDS: LOSARTAN 50 MG TAB PO SCH (08:46)
[2023-12-20] MEDS: CHOLECALCIFEROL 25 MCG (1000 IU) TABLET PO SCH (08:46)
[2023-12-20] MEDS: ASCORBIC ACID 500 MG TAB PO SCH (08:46)
--- NOTE | 2023-12-20 09:00 | P.HPIM ---
History of Present Illness H&P Date: 12/20/23 Chief Complaint: chest pain This is an 78-year-old female who presented to the emergency department with complaints of chest pain and abdominal pain. Patient reports she has had an increase in epigastric pain over the last week. She has also been having chest pain on and off for the last week. Reports that her pain is more of a burning feeling. She did go to urgent care yesterday and was told she had indigestion. Blood pressure elevated on admission. Ultrasound of gallbladder revealed cholelithiasis with gallstone in the gallbladder neck. Troponins elevated on ad mission. Cardiology and surgeon have been consulted. Further medical history as noted below. Review of Systems Constitutional: Denies chills, Denies fever Cardiovascular: Reports chest pain, Denies dyspnea on exertion Respiratory: Denies cough, Denies dyspnea Gastrointestinal: Reports abdominal pain, Denies nausea, Denies vomiting Musculoskeletal: Denies arm numbness/tingling, Denies leg numbness/tingling Neurological: Denies headaches, Denies weakness, Denies visual changes Past Medical History Past Medical History: Coronary Artery Disease (CAD), Chest Pain / Angina, Hypertension Additional Past Medical History / Comment(s): Chronic Back Pain lately and rece ntly saw Dr. Joyce for this, DDD, DJD, osteoporosis. History of Any Multi-Drug Resistant Organisms: None Reported Past Surgical History: Coronary Bypass/CABG, Heart Catheterization Additional Past Surgical History / Comment(s): 2005 CABG 2 vessel Past Anesthesia/Blood Transfusion Reactions: No Reported Reaction Past Psychological History: Anxiety, Depression Smoking Status: Never smoker Past Alcohol Use History: None Reported Past Drug Use History: None Reported - Past Family History Father Additional Family Medical History / Comment(s): Father had heart problems after the of his daughter. Mother Family Medical History: Myocardial Infarction ([place]) Additional Family Medical History / Comment(s): Mother in her 60s from a [place]. Sister(s) Additional Family Medical History / Comment(s): Sister comitted suicide. Medications and Allergies Home Medications Medication Instructions Recorded Confirmed Type Ascorbic Acid [Vitamin C] 1,000 mg PO DAILY 12/19/23 12/19/23 History Cholecalciferol [Vitamin D3 (25 50 mcg PO DAILY 12/19/23 12/19/23 History Mcg = 1000 Iu)] Melatonin 3 mg PO HS 12/19/23 12/19/23 History Vit A/Vit C/Vit E/Zinc/Copper 1 cap PO DAILY 12/19/23 12/19/23 History [ICAPS SOFTGEL] Vitamin B Complex 1 cap PO DAILY 12/19/23 12/19/23 History Allergies Allergy/AdvReac Type Severity Reaction Status Date / Time No Known Allergies Allergy Verified 12/19/23 16:25 Physical Exam Vitals: Vital Signs Temp Pulse Pulse Resp BP BP BP 12/20/23 07:10 98.1 F 94 15 169/94 12/20/23 02:00 98.4 F 111 H 16 156/81 12/19/23 20:48 104 H 131/72 12/19/23 19:56 99 15 191/90 12/19/23 19:30 104 H 15 12/19/23 18:38 98.0 F 99 17 205/119 12/19/23 17:00 94 22 167/82 12/19/23 16:47 97 16 165/94 12/19/23 15:34 97.8 F 75 20 250/109 Pulse Ox 12/20/23 07:10 97 12/20/23 02:00 96 12/19/23 20:48 12/19/23 19:56 100 12/19/23 19:30 12/19/23 18:38 98 12/19/23 17:00 98 12/19/23 16:47 98 12/19/23 15:34 97 Intake and Output 12/19/23 12/20/23 12/20/23 22:59 06:59 14:59 Intake Total 260 240 Balance 260 240 Intake: IV 20 Invasive Line 1 20 Oral 240 240 Other: Voiding Method Toilet Toilet # Voids 1 2 Weight 48.534 kg - Constitutional General appearance: no acute distress - EENT Eyes: PERRLA - Neck Neck: no lymphadenopathy, no rigidity - Respiratory Respiratory: bilateral: CTA - Cardiovascular Rhythm: regular Heart sounds: normal: S1, S2 - Gastrointestinal Epigastric tenderness General gastrointestinal: soft - Integumentary Integumentary: normal, normal turgor - Psychiatric Psychiatric: A&O x's 3, appropriate affect, intact judgment & insight Results CBC & Chem 7: 12/20/23 06:12 12/19/23 15:54 Labs: Abnormal Lab Results - Last 24 Hours (Table) 12/19/23 12/19/23 12/19/23 Range/Units 15:54 15:54 15:54 WBC 13.6 H (3.8-10.6) k/uL RBC 5.46 H (3.80-5.40) m/uL Hct 46.2 H (34.0-46.0) % Neutrophils # 12.2 H (1.3-7.7) k/uL Lymphocytes # 0.7 L (1.0-4.8) k/uL Monocytes # (0-1.0) k/uL PT (10.0-12.5) sec INR (<1.2) APTT 18.2 L (22.0-30.0) sec Glucose 144 H (74-99) mg/dL Troponin I (0.000-0.034) ng/mL Amylase 112 H (30-110) U/L Lipase 463 H (23-300) U/L Urine Appearance (Clear) Urine Protein (Negative) Urine Ketones (Negative) Urine WBC (0-5) /hpf Urine Mucus (None) /hpf 12/19/23 12/19/23 12/20/23 Range/Units 16:45 22:20 03:11 WBC (3.8-10.6) k/uL RBC (3.80-5.40) m/uL Hct (34.0-46.0) % Neutrophils # (1.3-7.7) k/uL Lymphocytes # (1.0-4.8) k/uL Monocytes # (0-1.0) k/uL PT (10.0-12.5) sec INR (<1.2) APTT (22.0-30.0) sec Glucose (74-99) mg/dL Troponin I 0.057 H* 0.158 H* (0.000-0.034) ng/mL Amylase (30-110) U/L Lipase (23-300) U/L Urine Appearance Cloudy H (Clear) Urine Protein 1+ H (Negative) Urine Ketones 2+ H (Negative) Urine WBC 7 H (0-5) /hpf Urine Mucus Rare H (None) /hpf 12/20/23 12/20/23 12/20/23 Range/Units 06:12 06:12 06:12 WBC 19.6 H (3.8-10.6) k/uL RBC (3.80-5.40) m/uL Hct (34.0-46.0) % Neutrophils # 16.5 H (1.3-7.7) k/uL Lymphocytes # (1.0-4.8) k/uL Monocytes # 1.2 H (0-1.0) k/uL PT 14.0 H (10.0-12.5) sec INR 1.3 H (<1.2) APTT (22.0-30.0) sec Glucose (74-99) mg/dL Troponin I 0.224 H* (0.000-0.034) ng/mL Amylase (30-110) U/L Lipase (23-300) U/L Urine Appearance (Clear) Urine Protein (Negative) Urine Ketones (Negative) Urine WBC (0-5) /hpf Urine Mucus (None) /hpf Thrombosis Risk Factor Assmnt - Choose All That Apply Any of the Below Risk Factors Present?: No Other Risk Factors: Yes Each Risk Factor Represents 3 Points: Age 75 years or older Thrombosis Risk Factor Assessment Total Risk Factor Score: 3 Thrombosis Risk Factor Assessment Level: Moderate Risk Assessment and Plan (1) Chest pain Current Visit: Yes Status: Acute Code(s): R07.9 - CHEST PAIN, UNSPECIFIED SNOMED Code(s): 82854223 (2) Cholelithiasis Current Visit: Yes Status: Acute Code(s): K80.20 - CALCULUS OF GALLBLADDER W/O CHOLECYSTITIS W/O OBSTRUCTION SNOMED Code(s): 570796832 (3) Hypertension, uncontrolled Current Visit: Yes Status: Acute Code(s): I10 - ESSENTIAL (PRIMARY) HYPERTENSION SNOMED Code(s): 07340207 (4) CAD (coronary artery disease) Current Visit: No Status: Acute Code(s): I25.10 - ATHSCL HEART DISEASE OF [place] CORONARY ARTERY W/O ANG PCTRS SNOMED Code(s): 65651010 Plan: Continue home medications. Cardiology has ordered an echo. Await further cardiac workup before any possible surgical invention for gallblad elías Patient seen and evaluated by nurse practitioner, physician in agreement with plan
--- NOTE | 2023-12-20 10:35 | P.CRDCN ---
History of Present Illness Consult date: 12/20/23 Consult reason: chest pain History of present illness: History of present illness: This is an 78-year-old female patient does not currently follow with a dramatic coach with past medical history of coronary artery disease with previous CABG in 2005, no stent placement following that, history of hypertension, hyperlipidemia. We have been asked to evaluate the patient for chest pain and general surgeon is asking for clearance for cholecystectomy today. Patient states that she developed abdominal pain that was in the mid area but seem to localize to the epigastric area. She does have tenderness in the right upper quadrant along with chest pain. No shortness of breath. Patient apparently presented to the urgent care initially and was given omeprazole without any relief and sent into the hospital for further evaluation. Patient is status post morphine, hydralazine 10 mg IV push x 2 and a GI cocktail. Blood pressure 169/94, heart rate 94-111, pulse ox 97% on room air. Patient has been started on a heparin drip.. EKG sinus rhythm, Q waves in inferior leads, nonspecific ST changes, sinus tachycardia Chest x-ray: No acute findings Abdominal ultrasound reveals cholelithiasis with gallstones in the gallbladder neck. WBC 19.6, hemoglobin 14.6, platelet count 300. INR 1.3. Electrolytes and renal function normal. Blood sugar 144. Troponins 0.012, 0.015, 0.057, 0.158, 0.224. Amylase 112, lipase 463. Home cardiac medications: None Echocardiogram performed in 2018 reveals EF of 55 to 60%, borderline concentric left ventricular hypertrophy, mild mitral regurgitation, mild tricuspid regurgitation. No pulmonary hypertension. Review Of Systems: At the time of my exam: CONSTITUTIONAL: Denies fever or chills. HEENT: Denies blurred vision, vision changes, or eye pain. Denies hemoptysis CARDIOVASCULAR: Denies chest pain. Denies orthopnea. Denies PND. Denies palpitations RESPIRATORY: Denies shortness of breath. GASTROINTESTINAL: Reports abdominal pain. Denies nausea or vomiting. HEMATOLOGIC: Denies bleeding disorders. GENITOURINARY: Denies any blood in urine. SKIN: Denies pruitis. Denies rash. Physical examination: Gen: This is an 78-year-old female in no acute distress VS: reviewed HEENT: Head is atraumatic, normocephalic. Pupils equal, round. Sclerae is anicteric. Hard of hearing. NECK: Supple. No JVD. LUNGS: Clear to auscultation. No wheezes or rhonchi. No intercostal retractions. HEART: Regular rate and rhythm. Systolic murmur at the right sternal border, systolic murmur at the left mid sternal border. ABDOMEN: Soft No tenderness. EXTREMITIES: No pedal edema. No calf tenderness. NEUROLOGICAL: Patient is awake, alert and oriented x3. Assessment: Non-ST elevated myocardial infarction Franny lithiasis History of coronary artery disease with previous CABG in 2005 Hypertension Hyperlipidemia Plan: Start patient on aspirin 81 mg daily, atorvastatin 40 mg daily, losartan 50 mg daily Beta-kirstin not started due to bradycardia Continue heparin drip Obtain 2-D echocardiogram and Doppler study to assess cardiac structure and function Further recommendations to follow based upon clinical course Hold on surgical intervention for today. Thank you kindly for this consultation. Nurse practitioner note has been reviewed, I agree with documented findings and plan of care. Patient was seen and examined. Past Medical History Past Medical History: Coronary Artery Disease (CAD), Chest Pain / Angina, Hypertension Additional Past Medical History / Comment(s): Chronic Back Pain lately and recently saw Dr. Joyce for this, DDD, DJD, osteoporosis. History of Any Multi-Drug Resistant Organisms: None Reported Past Surgical History: Coronary Bypass/CABG, Heart Catheterization Additional Past Surgical History / Comment(s): 2005 CABG 2 vessel Past Anesthesia/Blood Transfusion Reactions: No Reported Reaction Past Psychological History: Anxiety, Depression Smoking Status: Never smoker Past Alcohol Use History: None Reported Past Drug Use History: None Reported - Past Family History Father Additional Family Medical History / Comment(s): Father had heart problems after the of his daughter. Mother Family Medical History: Myocardial Infarction ([place]) Additional Family Medical History / Comment(s): Mother in her 60s from a [place]. Sister(s) Additional Family Medical History / Comment(s): Sister comitted suicide. Medications and Allergies Home Medications Medication Instructions Recorded Confirmed Type Ascorbic Acid [Vitamin C] 1,000 mg PO DAILY 12/19/23 12/19/23 History Cholecalciferol [Vitamin D3 (25 50 mcg PO DAILY 12/19/23 12/19/23 History Mcg = 1000 Iu)] Melatonin 3 mg PO HS 12/19/23 12/19/23 History Vit A/Vit C/Vit E/Zinc/Copper 1 cap PO DAILY 12/19/23 12/19/23 History [ICAPS SOFTGEL] Vitamin B Complex 1 cap PO DAILY 12/19/23 12/19/23 History Allergies Allergy/AdvReac Type Severity Reaction Status Date / Time No Known Allergies Allergy Verified 12/19/23 16:25 Physical Exam Vitals: Vital Signs Temp Pulse Pulse Resp BP BP Pulse Ox 12/20/23 02:00 98.4 F 111 H 16 156/81 96 12/19/23 20:48 104 H 131/72 12/19/23 19:56 99 15 191/90 100 12/19/23 19:30 104 H 15 12/19/23 18:38 98.0 F 99 17 205/119 98 12/19/23 17:00 94 22 167/82 98 12/19/23 16:47 97 16 165/94 98 12/19/23 15:34 97.8 F 75 20 250/109 97 Intake and Output 12/19/23 12/20/23 12/20/23 22:59 06:59 14:59 Intake Total 260 240 Balance 260 240 Intake: IV 20 Invasive Line 1 20 Oral 240 240 Other: Voiding Method Toilet Toilet # Voids 1 2 Weight 48.534 kg Results 12/20/23 06:12 12/19/23 15:54 Cardiac Enzymes 12/19/23 12/19/23 12/19/23 Range/Units 15:54 15:54 18:34 AST 29 (14-36) U/L Troponin I <0.012 0.015 (0.000-0.034) ng/mL 12/19/23 12/20/23 12/20/23 Range/Units 22:20 03:11 06:12 AST (14-36) U/L Troponin I 0.057 H* 0.158 H* 0.224 H* (0.000-0.034) ng/mL Coagulation 12/19/23 12/20/23 Range/Units 15:54 06:12 PT 11.1 14.0 H (10.0-12.5) sec APTT 18.2 L 26.9 (22.0-30.0) sec CBC 12/19/23 12/20/23 Range/Units 15:54 06:12 WBC 13.6 H 19.6 H (3.8-10.6) k/uL RBC 5.46 H 5.13 (3.80-5.40) m/uL Hgb 15.2 14.6 (11.4-16.0) gm/dL Hct 46.2 H 44.0 (34.0-46.0) % Plt Count 217 300 (150-450) k/uL Comprehensive Metabolic Panel 12/19/23 Range/Units 15:54 Sodium 143 (137-145) mmol/L Potassium 3.6 (3.5-5.1) mmol/L Chloride 104 (98-107) mmol/L Carbon Dioxide 27 (22-30) mmol/L BUN 14 (7-17) mg/dL Creatinine 0.66 (0.52-1.04) mg/dL Glucose 144 H (74-99) mg/dL Calcium 9.6 (8.4-10.2) mg/dL AST 29 (14-36) U/L ALT 16 (4-34) U/L Alkaline Phosphatase 95 (38-126) U/L Total Protein 6.7 (6.3-8.2) g/dL Albumin 4.1 (3.5-5.0) g/dL Current Medications Generic Name Dose Route Start Last Admin Trade Name Gordoq PRN Reason Stop Dose Admin Acetaminophen 650 mg 12/19/23 17:34 Acetaminophen Tab 325 Mg Tab PO Q6HR PRN Mild Pain or Fever > 100.5 Ascorbic Acid 1,000 mg 12/20/23 09:00 Ascorbic Acid 500 Mg Tab PO DAILY [facility] Cholecalciferol 50 mcg 12/20/23 09:00 Cholecalciferol 25 Mcg (1000 Iu) Tablet PO DAILY [facility] Heparin Sodium (Porcine) 0 unit 12/20/23 04:41 Heparin Sodium 1,000 Un/Ml (10ml Vl) IV PER PROTOCOL PRN Low PTT Protocol Heparin Sodium/Sodium Chloride 250 mls @ 5.824 mls/hr 12/20/23 04:45 12/20/23 05:39 25,000 unit/ Sodium Chloride IV 12 units/kg/hr .Q24H BELINDA 5.824 mls/hr Administration Protocol 12 UNITS/KG/HR Melatonin 3 mg 12/19/23 21:00 12/19/23 21:40 Melatonin 3 Mg Tablet PO 3 mg HS BELINDA Administration Metoprolol Tartrate 25 mg 12/20/23 05:00 12/20/23 05:41 Metoprolol Tartrate 25 Mg Tab PO 25 mg BID BELINDA Administration Morphine Sulfate 4 mg 12/19/23 17:34 12/19/23 21:40 Morphine Sulfate 4 Mg/Ml Syringe IV 4 mg Q4HR PRN Administration Severe Pain (Scale 7 to 10) Morphine Sulfate 2 mg 12/19/23 17:38 Morphine Sulfate 2 Mg/Ml Syringe IVP Q4HR PRN Moderate Pain (Scale 4 to 6) Multivit/Ca Carb/B Cmplx/FA/Prenat 1 each 12/20/23 09:00 Folic Acid-Vit B Complex-Vit C 1 Cap PO DAILY [facility] Multivitamins/Minerals 1 each 12/20/23 09:00 Vit A,C & O-Tthzcm-Qfkkbjlo 1 Each Tab PO DAILY [facility] Naloxone HCl 0.2 mg 12/19/23 17:34 Naloxone 0.4 Mg/Ml 1 Ml Vial IV Q2M PRN Opioid Reversal Ondansetron HCl 4 mg 12/19/23 17:34 Ondansetron 4 Mg/2 Ml Vial IVP Q8HR PRN Nausea And Vomiting Intake and Output 12/19/23 12/20/23 12/20/23 22:59 06:59 14:59 Intake Total 260 240 Balance 260 240 Intake: IV 20 Invasive Line 1 20 Oral 240 240 Other: Voiding Method Toilet Toilet # Voids 1 2 Weight 48.534 kg 12/20/23 06:12 12/19/23 15:54
[2023-12-20] MEDS: ASPIRIN 81 MG PO SCH (10:38)
[2023-12-20] MEDS: MORPHINE SULFATE 2 MG/ML SYRINGE IVP PRN (10:55)
[2023-12-20] MEDS: PIPERACILLIN-TAZOBACTAM 3.375 GM in SODIUM CHLORIDE 0.9% 100 ML IVPB SCH (11:45)
--- NOTE | 2023-12-20 13:45 | P.GSCN ---
History of Present Illness Consult date: 12/20/23 History of present illness: CHIEF COMPLAINT: abdominal pain and chest pain HISTORY OF PRESENT ILLNESS: This is a 78-year-old female who presented to the hospital with complaints of abdominal pain and chest pain x 1 week. Patient reports the pain was across the upper abdomen and into the chest. She had been nausea and having heartburn. The pain had been intermittent but continued to progress. She came into the ER for further evaluation. Patient denies any shortness of breath. She has been having episodes of dizziness. It has been several years since she seen a doctor. Past surgical history does include a CABG in 2005. Abdominal surgery includes a tubal ligation. Patient had a gallbladder ultrasound completed that did reveal cholelithiasis. She also had a mildly elevated lipase. Patient's troponins were elevated and has been seen by cardiology diagnosed with an acute non-ST elevated FL and she is on IV heparin. She has been mildly tachycardic with evidence of leukocytosis. Patient is also had a decreased appetite PAST MEDICAL HISTORY: Coronary Artery Disease (CAD), Chest Pain / Angina, Hypertension, chronic back pain PAST SURGICAL HISTORY: 2005 CABG 2 vessel MEDICATIONS: See below ALLERGIES: See below SOCIAL HISTORY: No illicit drug use. REVIEW OF SYSTEMS: CONSTITUTIONAL: Denies fever or chills. HEENT: Denies blurred vision, vision changes, or eye pain. Denies hemoptysis CARDIOVASCULAR: Denies chest pain or pressure. RESPIRATORY: No shortness of breath. GASTROINTESTINAL: See HPI for pertinent findings HEMATOLOGIC: Denies bleeding disorders. GENITOURINARY: Denies any blood in urine or increased urinary frequency. SKIN: Denies pruitis. Denies rash. PHYSICAL EXAM: VITAL SIGNS: Reviewed GENERAL: Well-developed in no acute distress. HEENT: No sclera icterus. Extraocular movements grossly intact. Moist buccal mucosa. Head is atraumatic, normocephalic. No nasal drainage. ABDOMEN: Soft. Nondistended. Tenderness with palpation epigastric and right upper quadrant NEUROLOGIC: Alert and oriented. Cranial nerves II through XII grossly intact. LABORATORY DATA: WBC 13.6-19.6 Hgb 14.6 platelets 300 INR 1.3 Sodium is 143 potassium 3.6 creatinine 0.66 Elevated troponins LFTs normal lipase mildly elevated at 463 amylase 112 IMAGING: Gallbladder ultrasound reporting cholelithiasis with gallstone in the ga llbladder neck ASSESSMENT: 1. Acute cholecystitis with cholelithiasis noted on ultrasound 2. Mild gallstone pancreatitis with minimally elevated lipase 3. Acute non-ST elevated FL PLAN: -Patient evaluated by cardiology and due to acute FL have recommended to hold off on gallbladder surgery for today -No surgical intervention planned today -Continue cardiac workup -Start IV antibiotics -Keep patient n.p.o. for now for mild pancreatitis -Repeat labs in AM -Continue IV fluids Physician Service Coordinator note has been reviewed by physician. Signing provider agrees with the documented findings, assessment, and plan of care. Past Medical History Past Medical History: Coronary Artery Disease (CAD), Chest Pain / Angina, Hypertension Additional Past Medical History / Comment(s): Chronic Back Pain lately and recently saw Dr. Joyce for this, DDD, DJD, osteoporosis. History of Any Multi-Drug Resistant Organisms: None Reported Past Surgical History: Coronary Bypass/CABG, Heart Catheterization Additional Past Surgical History / Comment(s): 2005 CABG 2 vessel Past Anesthesia/Blood Transfusion Reactions: No Reported Reaction Past Psychological History: Anxiety, Depression Smoking Status: Never smoker Past Alcohol Use History: None Reported Past Drug Use History: None Reported - Past Family History Father Additional Family Medical History / Comment(s): Father had heart problems after the of his daughter. Mother Family Medical History: Myocardial Infarction ([place]) Additional Family Medical History / Comment(s): Mother in her 60s from a [place]. Sister(s) Additional Family Medical History / Comment(s): Sister comitted suicide. Medications and Allergies Home Medications Medication Instructions Recorded Confirmed Type Ascorbic Acid [Vitamin C] 1,000 mg PO DAILY 12/19/23 12/19/23 History Cholecalciferol [Vitamin D3 (25 50 mcg PO DAILY 12/19/23 12/19/23 History Mcg = 1000 Iu)] Melatonin 3 mg PO HS 12/19/23 12/19/23 History Vit A/Vit C/Vit E/Zinc/Copper 1 cap PO DAILY 12/19/23 12/19/23 History [ICAPS SOFTGEL] Vitamin B Complex 1 cap PO DAILY 12/19/23 12/19/23 History Allergies Allergy/AdvReac Type Severity Reaction Status Date / Time No Known Allergies Allergy Verified 12/19/23 16:25 Surgical - Exam Vital Signs Temp Pulse Resp BP Pulse Ox 97.8 F 75 20 250/109 97 12/19/23 15:34 12/19/23 15:34 12/19/23 15:34 12/19/23 15:34 12/19/23 15:34 Results - Labs 12/20/23 06:12 12/19/23 15:54 Abnormal Lab Results - Last 24 Hours (Table) 12/19/23 12/19/23 12/19/23 Range/Units 15:54 15:54 15:54 WBC 13.6 H (3.8-10.6) k/uL RBC 5.46 H (3.80-5.40) m/uL Hct 46.2 H (34.0-46.0) % Neutrophils # 12.2 H (1.3-7.7) k/uL Lymphocytes # 0.7 L (1.0-4.8) k/uL Monocytes # (0-1.0) k/uL PT (10.0-12.5) sec INR (<1.2) APTT 18.2 L (22.0-30.0) sec Glucose 144 H (74-99) mg/dL Troponin I (0.000-0.034) ng/mL Amylase 112 H (30-110) U/L Lipase 463 H (23-300) U/L Urine Appearance (Clear) Urine Protein (Negative) Urine Ketones (Negative) Urine WBC (0-5) /hpf Urine Mucus (None) /hpf 12/19/23 12/19/23 12/20/23 Range/Units 16:45 22:20 03:11 WBC (3.8-10.6) k/uL RBC (3.80-5.40) m/uL Hct (34.0-46.0) % Neutrophils # (1.3-7.7) k/uL Lymphocytes # (1.0-4.8) k/uL Monocytes # (0-1.0) k/uL PT (10.0-12.5) sec INR (<1.2) APTT (22.0-30.0) sec Glucose (74-99) mg/dL Troponin I 0.057 H* 0.158 H* (0.000-0.034) ng/mL Amylase (30-110) U/L Lipase (23-300) U/L Urine Appearance Cloudy H (Clear) Urine Protein 1+ H (Negative) Urine Ketones 2+ H (Negative) Urine WBC 7 H (0-5) /hpf Urine Mucus Rare H (None) /hpf 12/20/23 12/20/23 12/20/23 Range/Units 06:12 06:12 06:12 WBC 19.6 H (3.8-10.6) k/uL RBC (3.80-5.40) m/uL Hct (34.0-46.0) % Neutrophils # 16.5 H (1.3-7.7) k/uL Lymphocytes # (1.0-4.8) k/uL Monocytes # 1.2 H (0-1.0) k/uL PT 14.0 H (10.0-12.5) sec INR 1.3 H (<1.2) APTT (22.0-30.0) sec Glucose (74-99) mg/dL Troponin I 0.224 H* (0.000-0.034) ng/mL Amylase (30-110) U/L Lipase (23-300) U/L Urine Appearance (Clear) Urine Protein (Negative) Urine Ketones (Negative) Urine WBC (0-5) /hpf Urine Mucus (None) /hpf Diabetes panel 12/19/23 Range/Units 15:54 Sodium 143 (137-145) mmol/L Potassium 3.6 (3.5-5.1) mmol/L Chloride 104 (98-107) mmol/L Carbon Dioxide 27 (22-30) mmol/L BUN 14 (7-17) mg/dL Creatinine 0.66 (0.52-1.04) mg/dL Glucose 144 H (74-99) mg/dL Calcium 9.6 (8.4-10.2) mg/dL AST 29 (14-36) U/L ALT 16 (4-34) U/L Alkaline Phosphatase 95 (38-126) U/L Total Protein 6.7 (6.3-8.2) g/dL Albumin 4.1 (3.5-5.0) g/dL Calcium panel 12/19/23 Range/Units 15:54 Calcium 9.6 (8.4-10.2) mg/dL Albumin 4.1 (3.5-5.0) g/dL Pituitary panel 12/19/23 Range/Units 15:54 Sodium 143 (137-145) mmol/L Potassium 3.6 (3.5-5.1) mmol/L Chloride 104 (98-107) mmol/L Carbon Dioxide 27 (22-30) mmol/L BUN 14 (7-17) mg/dL Creatinine 0.66 (0.52-1.04) mg/dL Glucose 144 H (74-99) mg/dL Calcium 9.6 (8.4-10.2) mg/dL Adrenal panel 12/19/23 Range/Units 15:54 Sodium 143 (137-145) mmol/L Potassium 3.6 (3.5-5.1) mmol/L Chloride 104 (98-107) mmol/L Carbon Dioxide 27 (22-30) mmol/L BUN 14 (7-17) mg/dL Creatinine 0.66 (0.52-1.04) mg/dL Glucose 144 H (74-99) mg/dL Calcium 9.6 (8.4-10.2) mg/dL Total Bilirubin 1.0 (0.2-1.3) mg/dL AST 29 (14-36) U/L ALT 16 (4-34) U/L Alkaline Phosphatase 95 (38-126) U/L Total Protein 6.7 (6.3-8.2) g/dL Albumin 4.1 (3.5-5.0) g/dL
[2023-12-20 16:01] VITALS: BMI 20.9
--- NOTE | 2023-12-20 17:11 | CA ---
Transthoracic Echo Report Name: Roro Markham Age: 78 Gender: F : 1945 Exam Date: 12/20/2023 10:22 Exam Location: [facility] Ht (in): 60 Wt (lb): 107 Ordering Physician: Roro Lozada Attending/Referring Phys: [id number], [facility] [employer] Teacher Chrissy Yarbrough RDCS Procedure CPT: Indications: LVF Cardiac Hx: Technical Quality: Fair Contrast 1: Total Dose (mL): Contrast 2: Total Dose (mL): MEASUREMENTS (Male / Female) Normal Values 2D ECHO LV Diastolic Diameter PLAX 3.5 cm 4.2 - 5.9 / 3.9 - 5.3 cm LV Systolic Diameter PLAX 1.8 cm IVS Diastolic Thickness 1.2 cm 0.6 - 1.0 / 0.6 - 0.9 cm LVPW Diastolic Thickness 1.2 cm 0.6 - 1.0 / 0.6 - 0.9 cm LV Relative Wall Thickness 0.7 RV Internal Dim ED PLAX 2.6 cm LA Volume 38.6 cm??? 18 - 58 / 22 - 52 cm??? LA Volume Index 26.9 cm???/m??? 16 - 28 cm???/m??? M-MODE Aortic Root Diameter MM 2.3 cm LA Systolic Diameter MM 3.7 cm LA Ao Ratio MM 1.6 AV Cusp Separation MM 1.4 cm DOPPLER AV Peak Velocity 143.9 cm/s AV Peak Gradient 8.3 mmHg AV Mean Velocity 105.6 cm/s AV Mean Gradient 5.0 mmHg AV Velocity Time Integral 29.4 cm LVOT Peak Velocity 101.6 cm/s LVOT Peak Gradient 4.1 mmHg LVOT Velocity Time Integral 22.6 cm MV Area PHT 3.0 cm??? Mitral E Point Velocity 60.5 cm/s Mitral A Point Velocity 98.1 cm/s Mitral E to A Ratio 0.6 MV Deceleration Time 255.3 ms MV E' Velocity 4.4 cm/s Mitral E to MV E' Ratio 13.8 TR Peak Velocity 175.3 cm/s TR Peak Gradient 12.3 mmHg Right Ventricular Systolic Press 17.2 mmHg FINDINGS Left Ventricle Mildly increased left ventricular wall thickness. Left ventricular cavity size normal. Normal left ventricular systolic function with no obvious regional wall motion abnormalities.abnormal (paradoxical) septal motion consistent with postoperative state. Left ventricular ejection fraction is estimated at 55-60 %. Grade 1 diastolic dysfunction. Right Ventricle Normal right ventricular size and function. Right ventricular systolic pressure within normal limits. Right Atrium Normal right atrial size. Left Atrium Normal left atrial size. Mitral Valve Structurally normal mitral valve. Mild mitral annular calcification. Mild mitral regurgitation. Aortic Valve Trileaflet aortic valve. No aortic stenosis. No aortic regurgitation. Tricuspid Valve Structurally normal tricuspid valve. Mild tricuspid regurgitation. Pulmonic Valve Structurally normal pulmonic valve. Pericardium No pericardial effusion. Aorta Normal size aortic root and proximal ascending aorta. CONCLUSIONS Left ventricular ejection fraction is estimated at 55-60 %. Grade 1 diastolic dysfunction. Mild concentric LVH Normal RV size and systolic function Mild MR No significant valvular dysfunction otherwise. No pericardial effusion Previewed by: Dr Terry Hi (Electronically Signed) Final Date: 20 December 2023 17:10
[2023-12-20] MEDS: SODIUM CHLORIDE 0.9% 1,000 ML IV SCH (18:49)
--- NOTE | 2023-12-21 08:39 | P.PN ---
Subjective Progress Note Date: 12/21/23 Principal diagnosis: This is a continuing progress note on an 78-year-old white female who came in with significant abdominal pain. Found to have cholecystitis but elevated troponin was noted. Echocardiogram was done which did show no significant regional wall motion abnormality. She is now scheduled for cholecystectomy later today. No chest pain no shortness of breath she is resting comfortably. No fever or chills. No significant anginal equivalent today. Objective - Vital Signs Vital signs: Vital Signs Temp 97.9 F 12/21/23 07:00 Pulse 67 12/21/23 07:00 Resp 16 12/21/23 07:00 BP 131/69 12/21/23 07:00 Pulse Ox 99 12/21/23 07:00 FiO2 Intake & Output 12/20/23 12/21/23 12/21/23 18:59 06:59 18:59 Weight 48.534 kg Other: Voiding Method Toilet # Voids 2 1 - Constitutional General appearance: Present: average body habitus, cooperative, no acute distress, thin - EENT Eyes: Absent: abnormal pupil - Neck Neck: Absent: lymphadenopathy - Respiratory Respiratory: bilateral: diminished - Cardiovascular Rhythm: regular Heart sounds: normal: S1, S2 Abnormal Heart Sounds: Absent: S3 Gallop - Gastrointestinal General gastrointestinal: Present: soft. Absent: distended - Integumentary Integumentary: Absent: cellulitis - Psychiatric Psychiatric: Present: A&O x's 3, appropriate affect - Labs CBC & Chem 7: 12/20/23 06:12 12/19/23 15:54 Labs: Abnormal Lab Results - Last 24 Hours (Table) 12/20/23 12/20/23 12/21/23 Range/Units 12:20 14:50 06:03 APTT 43.9 H 46.2 H 65.5 H (22.0-30.0) sec Assessment and Plan (1) Cholelithiasis Current Visit: Yes Status: Acute Code(s): K80.20 - CALCULUS OF GALLBLADDER W/O CHOLECYSTITIS W/O OBSTRUCTION SNOMED Code(s): 082321630 (2) Essential hypertension Current Visit: No Status: Acute Code(s): I10 - ESSENTIAL (PRIMARY) HYPE RTENSION SNOMED Code(s): 09887589 Plan: Await cholecystectomy today. Check CBC and CMP in the a.m. Hopefully discharge in the next 24-48 hours after appropriate cholecystectomy. Appreciate multiple consultants input. See orders otherwise.
--- NOTE | 2023-12-21 09:33 | P.PN ---
Subjective Progress Note Date: 12/21/23 Consult reason: chest pain History of present illness: History of present illness: This is an 78-year-old female patient does not currently follow with a rn quality with past medical history of coronary artery disease with previous CABG in 2005, no stent placement following that, history of hypertension, hyperlipidemia. We have been asked to evaluate the patient for chest pain and general surgeon is asking for clearance for cholecystectomy today. Patient states that she developed abdominal pain that was in the mid area but seem to localize to the epigastric area. She does have tenderness in the right upper quadrant along with chest pain. No shortness of breath. Patient apparently presented to the urgent care initially and was given omeprazole without any relief and sent into the hospital for further evaluation. Patient is status post morphine, hydralazine 10 mg IV push x 2 and a GI cocktail. Blood pressure 169/94, heart rate 94-111, pulse ox 97% on room air. Patient has been started on a heparin drip.. EKG sinus rhythm, Q waves in inferior leads, nonspecific ST changes, sinus tachycardia Chest x-ray: No acute findings Abdominal ultrasound reveals cholelithiasis with gallstones in the gallbladder neck. WBC 19.6, hemoglobin 14.6, platelet count 300. INR 1.3. Electrolytes and renal function normal. Blood sugar 144. Troponins 0.012, 0.015, 0.057, 0.158, 0.224. Amylase 112, lipase 463. Home cardiac medications: None Echocardiogram performed in 2018 reveals EF of 55 to 60%, borderline concentric left ventricular hypertrophy, mild mitral regurgitation, mild tricuspid regurgitation. No pulmonary hypertension. 12/20 Patient is seen this morning in follow-up. Echocardiogram reveals EF of 55 to 60%, grade 1 diastolic dysfunction. Mild concentric left ventricular hypertrophy. Mild MR. Discussed results of the echocardiogram with the patient. She is anxious to go for gallbladder surgery this morning. She denies having any chest pain, no shortness of breath. No abdominal pain at this time either. Blood pressure 131/69, heart rate 67, pulse ox 99% on room air. Physical examination: Gen: This is an 78-year-old female in no acute distress VS: reviewed HEENT: Head is atraumatic, normocephalic. Pupils equal, round. Sclerae is anicteric. Hard of hearing. NECK: Supple. No JVD. LUNGS: Clear to auscultation. No wheezes or rhonchi. No intercostal retractions. HEART: Regular rate and rhythm. Systolic murmur at the right sternal border, systolic murmur at the left mid sternal border. ABDOMEN: Soft No tenderness. EXTREMITIES: No pedal edema. No calf tenderness. NEUROLOGICAL: Patient is awake, alert and oriented x3. Assessment: Non-ST elevated myocardial infarction Franyn lithiasis History of coronary artery disease with previous CABG in 2005 Hypertension Hyperlipidemia Plan: Continue patient on aspirin 81 mg daily, atorvastatin 40 mg daily, losartan 50 mg daily Beta-kirstin not started due to bradycardia Discontinue heparin drip Patient is cleared for surgical intervention but patient is considered high risk for surgical intervention for cholecystectomy laparoscopic due to elevated cardiac enzymes. Plan to optimize medication regime. Nurse practitioner note has been reviewed, I agree with documented findings and plan of care. Patient was seen and examined. Objective - Vital Signs Vital signs: Vital Signs Temp 98.7 F 12/21/23 02:00 Pulse 68 12/21/23 02:00 Resp 16 12/21/23 02:00 BP 145/75 12/21/23 02:00 Pulse Ox 96 12/21/23 02:00 FiO2 Intake & Output 12/20/23 12/21/23 12/21/23 18:59 06:59 18:59 Weight 48.534 kg Other: Voiding Method Toilet # Voids 2 1 - Labs CBC & Chem 7: 12/20/23 06:12 12/19/23 15:54 Labs: Abnormal Lab Results - Last 24 Hours (Table) 12/20/23 12/20/23 12/20/23 Range/Units 06:12 06:12 12:20 PT 14.0 H (10.0-12.5) sec INR 1.3 H (<1.2) APTT 43.9 H (22.0-30.0) sec Troponin I 0.224 H* (0.000-0.034) ng/mL 12/20/23 Range/Units 14:50 PT (10.0-12.5) sec INR (<1.2) APTT 46.2 H (22.0-30.0) sec Troponin I (0.000-0.034) ng/mL
[2023-12-21 12:08] LABS: ALT 10 U/L (8-44); AST 18 U/L (13-35); Albumin 3.2 g/dL (3.8-4.9); Alkaline Phosphatase 62 U/L (41-126); Blood Urea Nitrogen 28.6 mg/dL (9.0-27.0); Calcium 8.7 mg/dL (8.7-10.3); Carbon Dioxide 22.9 mmol/L (21.6-31.8); Chloride 108 mmol/L (96-109); Globulin 1.6 g/dL (1.6-3.3); Glucose 79 mg/dL (70-110); Lipase 133 U/L (14-63); Potassium 3.2 mmol/L (3.5-5.5); Sodium 142 mmol/L (135-145); Total Bilirubin 0.6 mg/dL (0.3-1.2); Total Protein 4.8 g/dL (6.2-8.2)
--- NOTE | 2023-12-21 12:15 | P.PN ---
Subjective Progress Note Date: 12/21/23 CHIEF COMPLAINT: Abdominal pain HISTORY OF PRESENT ILLNESS: Patient lying in bed comfortably. She is no longer having any chest pain. She does report some discomfort in the right upper quadrant. Denies any nausea or vomiting. Afebrile. CBC for today's pending sodium is 142 potassium 3.2 creatinine 1.0 lipase 133 LFTs normal PHYSICAL EXAM: VITAL SIGNS: Reviewed. GENERAL: Well-developed in no acute distress. ABDOMEN: Soft. Nondistended. Right upper quadrant tenderness NEUROLOGIC: Alert and oriented. Cranial nerves II through XII grossly intact. ASSESSMENT: 1. Acute cholecystitis with cholelithiasis noted on ultrasound 2. Mild gallstone pancreatitis with minimally elevated lipase 3. Acute non-ST elevated [place] 4. Hypokalemia PLAN: -Patient scheduled for laparoscopic cholecystectomy today with Dr. Alvares. Discussed case with cardiology service. They have cleared patient to proceed with surgery. They noted that she would be considered high risk. -Keep patient n.p.o. -Replace potassium -Continue antibiotics -IV heparin held starting this morning Physician Reference Archivist note has been reviewed by physician. Signing provider agrees with the documented findings, assessment, and plan of care. Objective - Vital Signs Vital signs: Vital Signs Temp 97.9 F 12/21/23 07:00 Pulse 67 12/21/23 08:00 Resp 16 12/21/23 08:00 BP 131/69 12/21/23 07:00 Pulse Ox 99 12/21/23 07:00 FiO2 Intake & Output 12/20/23 12/21/23 12/21/23 18:59 06:59 18:59 Weight 48.534 kg Other: Voiding Method Toilet Toilet # Voids 2 1 1 - Labs CBC & Chem 7: 12/20/23 06:12 12/21/23 06:03 Labs: Abnormal Lab Results - Last 24 Hours (Table) 12/20/23 12/20/23 12/21/23 Range/Units 12:20 14:50 06:03 APTT 43.9 H 46.2 H 65.5 H (22.0-30.0) sec
[2023-12-21] MEDS: IV FLUID CONTINUATION 500 ML IV ONE (13:47)
[2023-12-21] MEDS: ONDANSETRON 4 MG/2 ML VIAL IVP ONE (13:55)
[2023-12-21] MEDS: DEXAMETHASONE SOD PHOSPHATE 4 MG/ML 1 ML VIAL IVP ONE (13:55)
[2023-12-21] MEDS ORDERED: SUCCINYLCHOLINE CHLORIDE 200 MG/10 ML VIAL IV ONE (14:15)
[2023-12-21] MEDS ORDERED: LIDOCAINE 1% INJ 10MG/ML (20 ML MDV) ONE (14:15)
[2023-12-21] MEDS ORDERED: NEOSTIGMINE 1 MG/ML 10 ML VIAL ONE (14:15)
[2023-12-21] MEDS ORDERED: fentaNYL (PF) 50 MCG/ML 2 ML AMP ONE (14:15)
[2023-12-21] MEDS ORDERED: ROCURONIUM 10 MG/ML (5 ML VIAL) IV ONE (14:15)
[2023-12-21] MEDS ORDERED: ETOMIDATE 2 MG/ML 10 ML VIAL ONE (14:15)
[2023-12-21] MEDS ORDERED: GLYCOPYRROLATE 0.2 MG/ML 2 ML VIAL ONE (14:15)
[2023-12-21 14:35] LABS: INR 1.13 sec (0.93-1.11); Prothrombin Time 12.1 sec (9.9-11.9)
[2023-12-21] MEDS: LIDOCAINE 1%-EPI 1:100,000 50 ML VIAL SQ ONE (15:00)
[2023-12-21] MEDS: LACTATED RINGERS 500 ML IV ONE (15:01)
--- NOTE | 2023-12-21 15:17 | P.OP ---
Date of Procedure: 12/21/23 Preoperative Diagnosis: Cholecystitis Postoperative Diagnosis: Cholecystitis Procedure(s) Performed: Laparoscopic cholecystectomy Anesthesia: WADE Surgeon: Luis Alvares Estimated Blood Loss (ml): 5 Pathology: other (Gallbladder) Condition: stable Disposition: PACU Description of Procedure: The patient was placed on the operating table. The patient received a general endotracheal tube anesthesia. The patients abdomen was prepped and draped in the usual sterile fashion. Through an infraumbilical stab incision, the fascia of the anterior abdominal wall was grasped with a pair of Kochers and then the Veress needle was placed in the peritoneal cavity. Position of the Veress needle was confirmed with positive drop test. The abdomen was then insufflated. After adequate insufflation, the 10 mm trocar was placed in the peritoneal cavity. Following this the laparoscope was placed in the peritoneal cavity. The patient was placed in the head-up, right side up position and then a 5 mm trocar was placed in the right lateral and right subcostal position under direct visualization. A 8 mm trocar was placed in the epigastric position. The gallbladder was grasped in the fundus and infundibulum. Traction on the gallbladder was placed in the lateral and the cephalad positions. The triangle of Calot was visualized.. The cystic duct was bluntly dissected until the union of the cystic duct and common bile duct was seen. A critical view of safety was achieved. The cystic duct was then divided and sealed with the Harmonic scissors. A PDS Endoloop was then placed throughout the cystic duct stump. The cystic artery divided and sealed with the Harmonic scissors. The gallbladder was then removed from the liver bed using Harmonic scissors. The gallbladder was then extracted through the epigastric port site. Operative field was checked for any bleeding spots and Harmonic scissors was used to coagulate the liver bed. The abdomen was irrigated. The trocars were removed. The skin was closed using interrupted 3-0 Vicryl suture. Dermabond dressing were applied. The patient tolerated the procedure well.
[2023-12-21] MEDS ORDERED: HYDROmorphone 1 MG/ML 1 ML SYRINGE IVP PRN (15:18)
[2023-12-21] MEDS ORDERED: ONDANSETRON 4 MG/2 ML VIAL IVP PRN (15:18)
[2023-12-21] MEDS ORDERED: HYDROcodone/APAP 7.5-325MG 1 EACH TAB PO PRN (15:18)
[2023-12-21] MEDS: POTASSIUM CHLORIDE ER 20 MEQ TAB.ER PO STA (20:15)
[2023-12-21] MEDS: MELATONIN 3 MG TABLET PO SCH (21:08)
--- NOTE | 2023-12-22 07:57 | P.PN ---
Subjective Progress Note Date: 12/22/23 History of present illness: This is an 78-year-old female patient does not currently follow with a cardiol ogist with past medical history of coronary artery disease with previous CABG in 2005, no stent placement following that, history of hypertension, hyperlipidemia. We have been asked to evaluate the patient for chest pain and general surgeon is asking for clearance for cholecystectomy today. Patient states that she developed abdominal pain that was in the mid area but seem to localize to the epigastric area. She does have tenderness in the right upper quadrant along with chest pain. No shortness of breath. Patient apparently presented to the urgent care initially and was given omeprazole without any relief and sent into the hospital for further evaluation. Patient is status post morphine, hydralazine 10 mg IV push x 2 and a GI cocktail. Blood pressure 169/94, heart rate 94-111, pulse ox 97% on room air. Patient has been started on a heparin drip.. EKG sinus rhythm, Q waves in inferior leads, nonspecific ST changes, sinus tachycardia Chest x-ray: No acute findings Abdominal ultrasound reveals cholelithiasis with gallstones in the gallbladder neck. WBC 19.6, hemoglobin 14.6, platelet count 300. INR 1.3. Electrolytes and renal function normal. Blood sugar 144. Troponins 0.012, 0.015, 0.057, 0.158, 0.224. Amylase 112, lipase 463. Home cardiac medications: None Echocardiogram performed in 2017 reveals EF of 55 to 60%, borderline concentric left ventricular hypertrophy, mild mitral regurgitation, mild tricuspid regurgitation. No pulmonary hypertension. 12/20 Patient is seen this morning in follow-up. Echocardiogram reveals EF of 55 to 60%, grade 1 diastolic dysfunction. Mild concentric left ventricular hypertrophy. Mild MR. Discussed results of the echocardiogram with the patient. She is anxious to go for gallbladder surgery this morning. She denies having any chest pain, no shortness of breath. No abdominal pain at this time either. Blood pressure 131/69, heart rate 67, pulse ox 99% on room air. 12/22/2023 Seen and examined. Postoperative. Yesterday had surgery without any complications for the gallbladder. Slightly hypertensive today. Denies any chest pain. Otherwise patient is stable from cardiovascular standpoint. Physical examination: Gen: This is an 78-year-old female in no acute distress VS: reviewed HEENT: Head is atraumatic, normocephalic. Pupils equal, round. Sclerae is anicteric. Hard of hearing. NECK: Supple. No JVD. LUNGS: Clear to auscultation. No wheezes or rhonchi. No intercostal retractions. HEART: Regular rate and rhythm. Systolic murmur at the right sternal border, systolic murmur at the left mid sternal border. ABDOMEN: Soft No tenderness. EXTREMITIES: No pedal edema. No calf tenderness. NEUROLOGICAL: Patient is awake, alert and oriented x3. Assessment: Non-ST elevated myocardial infarction Franny lithiasis History of coronary artery disease with previous CABG in 2005 Hypertension Hyperlipidemia Sinus bradycardia heart rate 50s to 60s beats per minute Plan: Continue patient on aspirin 81 mg daily, atorvastatin 40 mg daily, losartan 50 mg daily Beta-kirstin not started due to bradycardia Patient is cleared from cardiovascular standpoint. Cardiology team will sign off. I recommend that patient should follow-up with me in cardiology clinic where we would perform a Lexiscan nuclear stress test to quantify coronary ischemia especially due to her recent history of NSTEMI and prior CABG. Objective - Vital Signs Vital signs: Vital Signs Temp 98.2 F 12/22/23 00:39 Pulse 60 12/22/23 00:39 Resp 17 12/22/23 00:39 BP 176/77 12/22/23 00:39 Pulse Ox 98 12/22/23 00:39 FiO2 Intake & Output 12/21/23 12/22/23 12/22/23 18:59 06:59 18:59 Intake Total 500 Output Total 5 Balance 495 Weight 48.534 kg Intake: IV 500 Output: Estimated Blood Loss 5 Other: Voiding Method Toilet Toilet # Voids 1 1 - Labs CBC & Chem 7: 12/20/23 06:12 12/21/23 06:03 Labs: Abnormal Lab Results - Last 24 Hours (Table) 12/21/23 12/21/23 Range/Units 06:03 06:03 PT 12.1 H (9.9-11.9) sec INR 1.13 H (0.93-1.11) sec Potassium 3.2 L (3.5-5.5) mmol/L BUN 28.6 H (9.0-27.0) mg/dL Est GFR (CKD-EPI) 57 L (>=60) BUN/Creatinine Ratio 28.60 H (12.00-20.00) Ratio Total Protein 4.8 L (6.2-8.2) g/dL Albumin 3.2 L (3.8-4.9) g/dL Lipase 133 H (14-63) U/L
[2023-12-22 08:31] LABS: HCT 34.3 % (37.2-46.3); HGB 11.2 g/dL (12.0-15.0); MCH 28.1 pg (27.0-32.0); MCHC 32.7 g/dL (32.0-37.0); MCV 86.2 FL (80.0-97.0); Mean Platelet Volume 10.7 FL (9.5-12.2); NRBC Per 100 WBC 0 X 10*3/uL (0.00-0.01); Platelet Count 204 X 10*3/uL (140-440); RBC 3.98 X 10*6/uL (4.10-5.20); WBC 13.45 X 10*3/uL (4.50-10.00)
[2023-12-22 08:32] VITALS: BP 134/66; PULSE 67; RESP 14; TEMP 98.5
--- NOTE | 2023-12-22 08:48 | P.DS ---
Providers Date of admission: 12/19/23 17:29 Attending physician: Micky Lagos Consults: 12/19/23 17:34 Consult Physician Urgent Consulting Provider: Luis Alvares Consult Reason/Comments: Cholelithiasis Do you want consulting provider notified?: Yes Consult Physician Urgent Consulting Provider: Juarez Ricardo Consult Reason/Comments: Chest pain, CAD Do you want consulting provider notified?: Yes Primary care physician: Micky Lagos - Discharge Diagnosis(es) (1) Chest pain Current Visit: Yes Status: Acute (2) Cholelithiasis Current Visit: Yes Status: Acute (3) Hypertension, uncontrolled Current Visit: Yes Status: Acute (4) CAD (coronary artery disease) Current Visit: No Status: Acute Hospital Course: This is an 78-year-old female who presented to the emergency department with complaints of chest pain and abdominal pain. Ultrasound of patient's gallbladder revealed cholelithiasis with a gallstone in the bladder neck. Patient also had elevated troponins on admission. She was evaluated by cardiology and general surgeon. She had an echo which was normal and she was cleared for surgery. Yesterday patient underwent a laparoscopic cholecystectomy with Dr. Alvares. Patient tolerated procedure well. Patient has been cleared by cardiology who would like her to follow-up in the office for possible stress test. If patient is cleared by Dr. Alvares today she may be discharged home. Prescription sent for short supply of Mcclure, along with new scripts for aspirin, statin and losartan. Patient seen and evaluated by nurse practitioner, physician in agreement with plan Plan - Discharge Summary Discharge Rx Participant: No New Discharge Prescriptions: New HYDROcodone/APAP 7.5-325MG [Mcclure 7.5-325] 1 each PO Q6H PRN #28 tab PRN Reason: Pain Aspirin 81 mg PO DAILY #30 tab Losartan [Cozaar] 50 mg PO DAILY #30 tab Atorvastatin [Lipitor] 40 mg PO DAILY #30 tab Continue Vitamin B Complex 1 cap PO DAILY Melatonin 3 mg PO HS Vit A/Vit C/Vit E/Zinc/Copper [ICAPS SOFTGEL] 1 cap PO DAILY Cholecalciferol [Vitamin D3 (25 Mcg = 1000 Iu)] 50 mcg PO DAILY Ascorbic Acid [Vitamin C] 1,000 mg PO DAILY Discharge Medication List Ascorbic Acid [Vitamin C] 1,000 mg PO DAILY 12/19/23 [History] Cholecalciferol [Vitamin D3 (25 Mcg = 1000 Iu)] 50 mcg PO DAILY 12/19/23 [History] Melatonin 3 mg PO HS 12/19/23 [History] Vit A/Vit C/Vit E/Zinc/Copper [ICAPS SOFTGEL] 1 cap PO DAILY 12/19/23 [History] Vitamin B Complex 1 cap PO DAILY 12/19/23 [History] Aspirin 81 mg PO DAILY #30 tab 12/22/23 [Rx] Atorvastatin [Lipitor] 40 mg PO DAILY #30 tab 12/22/23 [Rx] HYDROcodone/APAP 7.5-325MG [Mcclure 7.5-325] 1 each PO Q6H PRN #28 tab 12/22/23 [Rx] Losartan [Cozaar] 50 mg PO DAILY #30 tab 12/22/23 [Rx] Follow up Appointment(s)/Referral(s): Micky Lagos MD [Primary Care Provider] - 1-2 days Terry Hi MD [Medical Doctor] - 1 Week Luis Alvares MD [STAFF PHYSICIAN] - 1 Week Discharge Disposition: HOME SELF-CARE
[2023-12-22 11:49] LABS: ALT 28 U/L (8-44); AST 48 U/L (13-35); Albumin 3.2 g/dL (3.8-4.9); Alkaline Phosphatase 77 U/L (41-126); BUN/Creat Ratio 24.11 Ratio (12.00-20.00); Blood Urea Nitrogen 21.7 mg/dL (9.0-27.0); Calcium 8.2 mg/dL (8.7-10.3); Carbon Dioxide 20.6 mmol/L (21.6-31.8); Chloride 109 mmol/L (96-109); Globulin 1.6 g/dL (1.6-3.3); Glucose 95 mg/dL (70-110); Potassium 4.2 mmol/L (3.5-5.5); Sodium 142 mmol/L (135-145); Total Bilirubin 0.5 mg/dL (0.3-1.2); Total Protein 4.8 g/dL (6.2-8.2)
--- NOTE | 2023-12-22 12:25 | P.PN ---
Subjective Progress Note Date: 12/22/23 CHIEF COMPLAINT: Abdominal pain HISTORY OF PRESENT ILLNESS: Patient is postop day #1 status post laparoscopic cholecystectomy. Patient reports her pain has improved. She is tolerating diet. She is afebrile. She has been up and ambulating. She denies any difficulty urinating. She feels ready for discharge. WBC is down from 19-13 PHYSICAL EXAM: VITAL SIGNS: Reviewed. GENERAL: Well-developed in no acute distress. ABDOMEN: Soft. Nondistended. Nontender. Incision sites clean dry and intact NEUROLOGIC: Alert and oriented. Cranial nerves II through XII grossly intact. ASSESSMENT: 1. Acute cholecystitis status post laparoscopic cholecystectomy 2. Mild gallstone pancreatitis with minimally elevated lipase 3. Acute non-ST elevated [place] seen by cardiology PLAN: -Patient can be discharged from surgical standpoint -Outpatient follow up with Dr. Alvares in 1 week Physician Reel Fed Printer note has been reviewed by physician. Signing provider agrees with the documented findings, assessment, and plan of care. Objective - Vital Signs Vital signs: Vital Signs Temp 98.5 F 12/22/23 07:00 Pulse 67 12/22/23 08:00 Resp 14 12/22/23 08:00 BP 134/66 12/22/23 07:00 Pulse Ox 97 12/22/23 07:00 FiO2 Intake & Output 12/21/23 12/22/23 12/22/23 18:59 06:59 18:59 Intake Total 500 Output Total 5 Balance 495 Weight 48.534 kg Intake: IV 500 Output: Estimated Blood Loss 5 Other: Voiding Method Toilet Toilet Toilet # Voids 1 1 - Labs CBC & Chem 7: 12/22/23 06:14 12/22/23 06:14 Labs: Abnormal Lab Results - Last 24 Hours (Table) 12/21/23 12/21/23 12/22/23 Range/Units 06:03 06:03 06:14 WBC 13.45 H (4.50-10.00) X 10*3/uL RBC 3.98 L (4.10-5.20) X 10*6/uL Hgb 11.2 L (12.0-15.0) g/dL Hct 34.3 L (37.2-46.3) % PT 12.1 H (9.9-11.9) sec INR 1.13 H (0.93-1.11) sec Potassium 3.2 L (3.5-5.5) mmol/L BUN 28.6 H (9.0-27.0) mg/dL Est GFR (CKD-EPI) 57 L (>=60) BUN/Creatinine Ratio 28.60 H (12.00-20.00) Ratio Total Protein 4.8 L (6.2-8.2) g/dL Albumin 3.2 L (3.8-4.9) g/dL Lipase 133 H (14-63) U/L
--- NOTE | 2023-12-26 15:48 | CDI ---
Documentation Clarification Form Date: 12/26/2023 From: Shameka Bello Admit Date: 12/19/2023 05:29:00 PM Patient Name: Roro Markham Visit Number: [id number] Discharge Date: 12/22/2023 11:30:00 AM ATTENTION: The Clinical Documentation Specialists (CDI) and [facility] Coding Staff appreciate your assistance in clarifying documentation. Please respond to the clarification below the line at the bottom and electronically sign. The CDI & [facility] Coding staff will review the response and follow-up if needed. Please note: Queries are made part of the Legal Health Record. If you have any questions, please contact the author of this message via ITS. Dr. Micky Lagos The patient has elevated WBC and tachycardia. Based on this information and the findings below, is there an additional diagnosis that is clinically appropriate for this patient? History/Risk Factors: 78yo presented with abdominal pain and chest pain and was admitted for acute cholecystitis and a NSTEMI. She underwent a lap praful on 12/20. Clinical Indicators: GB US 12/18: Cholelithiasis w/ gallstone in the gallbladder neck WBC: 12/18 13.6, 12/19 19.6, 12/21 13.45 Vitals signs: 12/18 @ 1838: 98.0, 99, 17, 205/119, 98% on RA 12/19 @ 0200: 98.4, 111, 16, 156/81, 96% on RA 12/20 @ 0700: 97.9, 67, 16, 131/69, 99% on RA Treatment: Zosyn IV, IV fluid Is there an additional diagnosis that is clinically appropriate for this patient? [ ] Sepsis, present on admission, secondary to infectious cholecystitis [ x] Sepsis, developed during stay, not present on admission secondary to infectious cholecystitis [ ] SIRS, without underlying infectious process secondary to non-infectious cholecystitis [ ] No additional diagnosis/not clinically significant [ ] Other, please specify [ ] Unable to determine SIRS Criteria: 2 or more of the following may indicate SIRS Temperature < 96.8F (36C) or > 101.0F (38.3C) Heart Rate > 90 bpm Respiratory Rate > 20 breaths/min or PaCO2 < 32 mmHg White Blood Cell Count > 12,000 or < 4,000 cells/mm3 or > 10% bands (Template Last Reviewed: October 2022) MTDD
== END 2023-12-22 11:30 | disposition home or self-care (01) | DRG 417 ==
LOC: EC 15:31 → 6NMEDSUR 17:28 → UNDOADMOB 17:28 → OBSVTOIN 17:29 → INTOOBSV 17:29 → 6NMEDSUR 17:55 → OBSVTOIN 12-20 11:29 → UNDODISIN 12-22 11:30
PROVIDERS: ADMIT Family Medicine; ATTEND Family Medicine
PROC: 0FT44ZZ Resection of Gallbladder, Percutaneous Endoscopic Approach (ICD-10-PCS; principal; 2023-12-21 08:30)
DX: K80.00 Calculus of gallbladder with acute cholecystitis without obstruction (principal); A41.9 Sepsis, unspecified organism; I21.4 Non-ST elevation (NSTEMI) myocardial infarction; K85.10 Biliary acute pancreatitis without necrosis or infection; I25.110 Atherosclerotic heart disease of native coronary artery with unstable angina pectoris; M81.0 Age-related osteoporosis without current pathological fracture; F32.A Depression, unspecified; R00.1 Bradycardia, unspecified; F41.9 Anxiety disorder, unspecified; I10 Essential (primary) hypertension; I08.1 Rheumatic disorders of both mitral and tricuspid valves; E78.5 Hyperlipidemia, unspecified; G89.29 Other chronic pain; M54.9 Dorsalgia, unspecified; I25.10 Atherosclerotic heart disease of native coronary artery without angina pectoris; E87.6 Hypokalemia; Z82.49 Family history of ischemic heart disease and other diseases of the circulatory system; Z95.1 Presence of aortocoronary bypass graft
CPT/HCPCS: 36415; 71046; 76705; 80053; 81001; 82150; 83605; 83690; 83735; 84484; 85025; 85027; 85610; 85730; 88304; 93005; 93306; 96374; 96375; 99285

== ENCOUNTER 2023-12-25 13:09 | Inpatient (IN) | payer MEDICARE ==
--- NOTE | 2023-12-25 13:58 | ED ---
General Adult HPI - General Chief complaint: Chest Pain Stated complaint: chest and abd pain Time Seen by Provider: 12/25/23 13:30 Source: patient, RN notes reviewed, old records reviewed Mode of arrival: ambulatory Limitations: no limitations - History of Present Illness Initial comments: 78-year-old female presenting for evaluation of chest discomfort. Patient is postop laparoscopic cholecystectomy. She has had some nausea and vomiting. She has had mild generalized abdominal pain. She reports chest discomfort which she relates as heaviness on her chest. - Related Data Home Medications Medication Instructions Recorded Confirmed Ascorbic Acid [Vitamin C] 1,000 mg PO DAILY 12/19/23 12/19/23 Cholecalciferol [Vitamin D3 (25 50 mcg PO DAILY 12/19/23 12/19/23 Mcg = 1000 Iu)] Melatonin 3 mg PO HS 12/19/23 12/19/23 Vit A/Vit C/Vit E/Zinc/Copper 1 cap PO DAILY 12/19/23 12/19/23 [ICAPS SOFTGEL] Vitamin B Complex 1 cap PO DAILY 12/19/23 12/19/23 Previous Rx's Medication Instructions Recorded Amoxic-Pot Clav 875-125Mg 1 tab PO Q12HR 7 Days #14 tab 12/22/23 [Augmentin 875-125] Aspirin 81 mg PO DAILY #30 tab 12/22/23 Atorvastatin [Lipitor] 40 mg PO DAILY #30 tab 12/22/23 HYDROcodone/APAP 7.5-325MG [[place] 1 each PO Q6H PRN #28 tab 12/22/23 7.5-325] Losartan [Cozaar] 50 mg PO DAILY #30 tab 12/22/23 Allergies Allergy/AdvReac Type Severity Reaction Status Date / Time No Known Allergies Allergy Verified 12/25/23 13:18 Review of Systems ROS Statement: Those systems with pertinent positive or pertinent negative responses have been documented in the HPI. ROS Other: All systems not noted in ROS Statement are negative. Past Medical History Past Medical History: Coronary Artery Disease (CAD), Chest Pain / Angina, Hypertension Additional Past Medical History / Comment(s): Chronic Back Pain lately and recently saw Dr. Joyce for this, DDD, DJD, osteoporosis. History of Any Multi-Drug Resistant Organisms: None Reported Past Surgical History: Coronary Bypass/CABG, Heart Catheterization Additional Past Surgical History / Comment(s): 2006 CABG 2 vessel Past Anesthesia/Blood Transfusion Reactions: No Reported Reaction Past Psychological History: Anxiety, Depression Smoking Status: Never smoker Past Alcohol Use History: None Reported Past Drug Use History: None Reported - Past Family History Father Additional Family Medical History / Comment(s): Father had heart problems after the of his daughter. Mother Family Medical History: Myocardial Infarction ([place]) Additional Family Medical History / Comment(s): Mother in her 60s from a [place]. Sister(s) Additional Family Medical History / Comment(s): Sister comitted suicide. General Exam Limitations: no limitations General appearance: alert, in no apparent distress Head exam: Present: atraumatic, normocephalic Eye exam: Present: normal appearance, PERRL ENT exam: Present: normal exam Neck exam: Present: normal inspection Respiratory exam: Present: normal lung sounds bilaterally. Absent: respiratory distress, wheezes Cardiovascular Exam: Present: regular rate, normal rhythm GI/Abdominal exam: Present: soft, tenderness (Mild generalized tenderness, incisions appear well-healed). Absent: distended Extremities exam: Present: normal inspection, normal capillary refill Neurological exam: Present: alert, oriented X3 Psychiatric exam: Present: normal affect, normal mood Course Vital Signs 12/25/23 12/25/23 12/25/23 13:10 14:15 15:27 Temperature 97.9 F Pulse Rate 69 76 85 Respiratory 18 20 20 Rate Blood Pressure 202/81 231/109 213/97 O2 Sat by Pulse 98 95 96 Oximetry Medical Decision Making - Medical Decision Making Was pt. sent in by a medical professional or institution (, PA, SPORTS JOURNALIST, urgent care, hospital, or senior living...) When possible be specific @ -No Did you speak to anyone other than the patient for history (EMS, parent, family, police, friend...)? What history was obtained from this source @ -No patient's daughters were at bedside review nursing and triage notes (agree or disagree)? Why? @ -I reviewed and agree with nursing and triage notes Were old charts reviewed (outside hosp., previous admission, EMS record, old EKG, old radiological studies, urgent care reports/EKG's, senior living records)? Report findings @ -No old charts were reviewed Differential Diagnosis (chest pain, altered mental status, abdominal pain women, abdominal pain men, vaginal bleeding, weakness, fever, dyspnea, syncope, headache, dizziness, GI bleed, back pain, seizure, CVA, palpatations, mental health, musculoskeletal)? @ -[Differential Chest Pain: Stable Angina, Unstable Angina, STEMI, NSTEMI Aortic Dissection, Pneumothorax, Musculoskeletal, Esophageal Spasm GERD, Cholecystitis, Pancreatitis, Zoster, this is not meant to be an all-inclusive list. EKG interpreted by me (3pts min.). @ -EKG: Sinus bradycardia rate of 59, SD interval 138, QRS duration 74, QTc [address] segment elevation. X-rays interpreted by me (1pt min.). @ -None done CT interpreted by me (1pt min.). @ -[CT angiography negative for aortic pathology, showing postoperative changes and mildly distended stomach. U/S interpreted by me (1pt. min.). @ -None done What testing was considered but not performed or refused? (CT, X-rays, U/S, labs)? Why? @ -None What meds were considered but not given or refused? Why? @ -None Did you discuss the management of the patient with other professionals (professionals i.e. , PA, SPORTS JOURNALIST, lab, RT, psych nurse, social services analyst, patch finisher, teacher, security flex utility officer, case mgr)? Give summary @[facility] Was smoking cessation discussed for >3mins.? @ -No Was critical care preformed (if so, how long)? @ -No Were there social determinants of health that impacted care today? How? (Homelessness, low income, unemployed, alcoholism, drug addiction, transportation, low edu. Level, literacy, decrease access to med. care, mcc, rehab)? @ -No Was there de-escalation of care discussed even if they declined (Discuss DNR or withdrawal of care, Hospice)? DNR status @ -No What co-morbidities impacted this encounter? (DM, HTN, Smoking, COPD, CAD, Cancer, CVA, ARF, Chemo, Hep., AIDS, mental health diagnosis, sleep apnea, morbid obesity)? @ -[hypertension, recent laparoscopic cholecystectomy Was patient admitted / discharged? Hospital course, mention meds given and route, prescriptions, significant lab abnormalities, going to OR and other pertinent info. @ -78-year-old female presenting with chest discomfort. EKG is sinus without ST segment elevation. Patient is 4 days postop laparoscopic cholecystectomy. She does not have any significant abdominal tenderness. She has a normal white blood cell count, stable hemoglobin. Mild transaminitis consistent with recent gallbladder surgery. Patient did receive CT angiography for both her chest pain and abdominal pain in the setting of hypertension. This was negative for aortic pathology. Patient will be admitted for symptom control, IV hydration. Undiagnosed new problem with uncertain prognosis? @ -[No Drug Therapy requiring intensive monitoring for toxicity (Heparin, Nitro, Insulin, Cardizem)? @ -No Were any procedures done? @ -No Diagnosis/symptom? @ -Chest pain, nausea vomiting, postop laparoscopic cholecystectomy Acute, or Chronic, or Acute on Chronic? @ -Acute Uncomplicated (without systemic symptoms) or Complicated (systemic symptoms)? @ -Default Side effects of treatment? @ -No Exacerbation, Progression, or Severe Exacerbation? @ -No Poses a threat to life or bodily function? How? (Chest pain, [place], [place], pneumonia, PE, COPD, DKA, ARF, appy, cholecystitis, CVA, Diverticulitis, Homicidal, Suicidal, threat to staff... and all critical care pts) @Low risk at this time - Lab Data Result diagrams: 12/25/23 13:48 12/25/23 13:48 Lab Results 12/25/23 12/25/23 12/25/23 Range/Units 13:48 13:48 13:48 WBC 9.8 (3.8-10.6) k/uL RBC 4.58 (3.80-5.40) m/uL Hgb 12.9 (11.4-16.0) gm/dL Hct 39.0 (34.0-46.0) % MCV 85.0 (80.0-100.0) fL MCH 28.2 (25.0-35.0) pg MCHC 33.1 (31.0-37.0) g/dL RDW 14.2 (11.5-15.5) % Plt Count 270 (150-450) k/uL MPV 8.2 Neutrophils % 74 % Lymphocytes % 16 % Monocytes % 5 % Eosinophils % 3 % Basophils % 0 % Neutrophils # 7.2 (1.3-7.7) k/uL Lymphocytes # 1.6 (1.0-4.8) k/uL Monocytes # 0.5 (0-1.0) k/uL Eosinophils # 0.2 (0-0.7) k/uL Basophils # 0.0 (0-0.2) k/uL PT 10.8 (10.0-12.5) sec INR 1.0 (<1.2) APTT 23.2 (22.0-30.0) sec Sodium 142 (137-145) mmol/L Potassium 3.5 (3.5-5.1) mmol/L Chloride 106 (98-107) mmol/L Carbon Dioxide 26 (22-30) mmol/L Anion Gap 10 mmol/L BUN 10 (7-17) mg/dL Creatinine 0.50 L (0.52-1.04) mg/dL Est GFR (CKD-EPI)AfAm >90 (>60 ml/min/1.73 sqM) Est GFR (CKD-EPI)NonAf >90 (>60 ml/min/1.73 sqM) Glucose 91 (74-99) mg/dL Calcium 9.2 (8.4-10.2) mg/dL Magnesium 1.8 (1.6-2.3) mg/dL Total Bilirubin 0.8 (0.2-1.3) mg/dL AST 50 H (14-36) U/L ALT 44 H (4-34) U/L Alkaline Phosphatase 133 H (38-126) U/L Troponin I (0.000-0.034) ng/mL Total Protein 6.0 L (6.3-8.2) g/dL Albumin 3.6 (3.5-5.0) g/dL Lipase 626 H (23-300) U/L //24 Range/Units 13:48 WBC (3.8-10.6) k/uL RBC (3.80-5.40) m/uL Hgb (11.4-16.0) gm/dL Hct (34.0-46.0) % MCV (80.0-100.0) fL MCH (25.0-35.0) pg MCHC (31.0-37.0) g/dL RDW (11.5-15.5) % Plt Count (150-450) k/uL MPV Neutrophils % % Lymphocytes % % Monocytes % % Eosinophils % % Basophils % % Neutrophils # (1.3-7.7) k/uL Lymphocytes # (1.0-4.8) k/uL Monocytes # (0-1.0) k/uL Eosinophils # (0-0.7) k/uL Basophils # (0-0.2) k/uL PT (10.0-12.5) sec INR (<1.2) APTT (22.0-30.0) sec Sodium (137-145) mmol/L Potassium (3.5-5.1) mmol/L Chloride (98-107) mmol/L Carbon Dioxide (22-30) mmol/L Anion Gap mmol/L BUN (7-17) mg/dL Creatinine (0.52-1.04) mg/dL Est GFR (CKD-EPI)AfAm (>60 ml/min/1.73 sqM) Est GFR (CKD-EPI)NonAf (>60 ml/min/1.73 sqM) Glucose (74-99) mg/dL Calcium (8.4-10.2) mg/dL Magnesium (1.6-2.3) mg/dL Total Bilirubin (0.2-1.3) mg/dL AST (14-36) U/L ALT (4-34) U/L Alkaline Phosphatase (38-126) U/L Troponin I 0.034 (0.000-0.034) ng/mL Total Protein (6.3-8.2) g/dL Albumin (3.5-5.0) g/dL Lipase (23-300) U/L Disposition Clinical Impression: Chest pain, Hypertension, uncontrolled, Nausea & vomiting Disposition: ADMITTED IP TO THIS [facility] Condition: Stable Is patient prescribed a controlled substance at d/c from ED?: No Referrals: Micky Lagos MD [Primary Care Provider] - 1-2 days Time of Disposition: 16:14
[2023-12-25] MEDS: ONDANSETRON 4 MG/2 ML VIAL IVP STA (14:05)
[2023-12-25] MEDS: HYDROmorphone 0.5 MG/0.5 ML SYRINGE IVP STA (14:08)
[2023-12-25] MEDS: PANTOPRAZOLE 40 MG/10 ML VIAL IVP STA (14:11)
[2023-12-25 14:20] LABS: Basophils % (A) 0 %; Eosinophils # (A) 0.2 k/uL (0-0.7); Eosinophils % (A) 3 %; HGB 12.9 gm/dL (11.4-16.0); Lymphocytes # (A) 1.6 k/uL (1.0-4.8); Lymphocytes % (A) 16 %; MCH 28.2 pg (25.0-35.0); MCHC 33.1 g/dL (31.0-37.0); Mean Platelet Volume 8.2; Monocytes # (A) 0.5 k/uL (0-1.0); Monocytes % (A) 5 %; Neutrophils # (A) 7.2 k/uL (1.3-7.7); Neutrophils % (A) 74 %; Platelet Count 270 k/uL (150-450); RBC 4.58 m/uL (3.80-5.40); RDW 14.2 % (11.5-15.5); WBC 9.8 k/uL (3.8-10.6)
[2023-12-25 14:28] LABS: Partial Thromboplastin Time 23.2 sec (22.0-30.0); Prothrombin Time 10.8 sec (10.0-12.5)
[2023-12-25 14:33] LABS: ALT 44 U/L (4-34); AST 50 U/L (14-36); African American GFR (CKD) >90 (>60 ml/min/1.73 sqM); Albumin 3.6 g/dL (3.5-5.0); Alkaline Phosphatase 133 U/L (38-126); Anion Gap 10 mmol/L; Blood Urea Nitrogen 10 mg/dL (7-17); Calcium 9.2 mg/dL (8.4-10.2); Carbon Dioxide 26 mmol/L (22-30); Chloride 106 mmol/L (98-107); Glucose 91 mg/dL (74-99); Lipase 626 U/L (23-300); Magnesium 1.8 mg/dL (1.6-2.3); Non-African American GFR(CKD) >90 (>60 ml/min/1.73 sqM); Potassium 3.5 mmol/L (3.5-5.1); Sodium 142 mmol/L (137-145); Total Bilirubin 0.8 mg/dL (0.2-1.3)
--- NOTE | 2023-12-25 14:36 | XR ---
EXAMINATION TYPE: XR chest 2V DATE OF EXAM: 12/25/2023 2:32 PM CLINICAL INDICATION:Female, 78 years old with history of Chest Pain; [facility] COMPARISON: Chest radiographs from 12/19/2023 TECHNIQUE: XR chest 2V Frontal and lateral views of the chest. FINDINGS: Lungs/Pleura: There is no evidence of pleural effusion, focal consolidation, or pneumothorax. Pulmonary vascularity: Unremarkable. Heart/mediastinum: Cardiomediastinal silhouette is unremarkable. Musculoskeletal: No acute osseous pathology. Midline sternotomy wires are noted. IMPRESSION: No acute cardiopulmonary disease/process.
--- NOTE | 2023-12-25 15:28 | CT ---
EXAMINATION TYPE: CT angio thor/abd pel aorta CT DLP: 836.4 mGycm, Automated exposure control for dose reduction was used. DATE OF EXAM: 12/25/2023 3:11 PM COMPARISON: CT chest and abdomen 07/03/2018. CLINICAL INDICATION:Female, 78 years old with history of Chest pain, abdominal pain, hypertension; PH H, Chest pain, abdominal pain, hypertension TECHNIQUE: Dissection protocol: Multiple axial CT images of the chest, abdomen, and pelvis were obtai aryan prior and to the administration of IV contrast. 3-D reformats and maximum intensity projection fo rmat were performed on a separate workstation. Contrast used:100 ml mL of Isovue 370 without and with IV Contrast, Oral contrast used: FINDINGS: ARTERIAL VASCULATURE: The thoracic aorta is normal in course and caliber. There is no evidence of aor tic dissection, aneurysm or acute aortic injury. Great arch vessels patent and normal in course and c aliber. Scattered moderate atherosclerotic changes of aorta are identified, there is moderate to brian re stenosis of the superior mesenteric artery origin. PULMONARY ARTERIAL VASCULATURE: Normal caliber. No evidence of filling defect to suggest pulmonary em bolus. VENOUS SYSTEM: Unremarkable. Lungs/pleura: Trace bilateral pleural effusions. Heart: Within normal limits. Coronary artery calcifications present Mediastinum: No gross evidence of adenopathy. Lower Neck: No significant findings. Abdomen: Liver: Unremarkable. Gallbladder and Bile ducts: The gallbladder is absent. No evidence of biliary duct dilation. Pancreas: Unremarkable. Spleen: Unremarkable. Adrenal glands: Unremarkable. Kidneys and Ureters: Unremarkable. No hydronephrosis. Bladder: Unremarkable. Reproductive: Unremarkable. Stomach and Bowel: Stomach and duodenum are distended with fluid. No evidence of bowel obstruction. Mild rectosigmoid colon wall thickening without significant inflammatory change. Circumferential wall thickening of the distal esophagus. Peritoneum: Foci of free air is noted within the right upper quadrant, most notably surrounding the junction of the stomach and duodenum. Musculoskeletal: Median sternotomy wires appreciated. Moderate multilevel degenerative disc changes o f the thoracic lumbar spine.. Lymph nodes: No evidence of lymphadenopathy. Abdominal wall/soft tissues: Unremarkable. IMPRESSION: 1. Small volume pneumoperitoneum, most concentrated within the right upper quadrant, consistent with recent cholecystectomy. 2. No evidence for aortic dissection. 3. 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 4. Fluid distended stomach and duodenum. Correlate with recent ingested meal/fluid. 5. Circumferential wall thickening of the distal esophagus. Recommend further evaluation with follow- up EGD. 6. Trace pleural effusions. 7. Mild rectosigmoid colon wall thickening. Correlate with history of colitis. The case was discussed via telephone with Dr. Gabriel on 12/25/[address] Markham.
[2023-12-25] MEDS: METOCLOPRAMIDE 5 MG/ML 2 ML VIAL IVP STA (15:43)
[2023-12-25] MEDS ORDERED: NALOXONE 0.4 MG/ML 1 ML VIAL IV PRN (16:08)
[2023-12-25] MEDS ORDERED: ONDANSETRON 4 MG/2 ML VIAL IVP PRN (16:08)
[2023-12-25] MEDS: LOSARTAN 50 MG TAB PO STA (17:45)
[2023-12-25] MEDS: SODIUM CHLORIDE 0.9% 1,000 ML IV SCH (17:45)
[2023-12-25] MEDS: HYDROmorphone 0.5 MG/0.5 ML SYRINGE IVP PRN (17:59)
[2023-12-25] MEDS: METOPROLOL TARTRATE 25 MG TAB PO SCH (21:11)
[2023-12-25] MEDS: hydrALAZINE HCL 20 MG/ML 1 ML VIAL IVP PRN (21:12)
[2023-12-26] MEDS ORDERED: NITROGLYCERIN OINT 1 INCH/GM PACKET TOPICAL SCH
[2023-12-26] MEDS: PANTOPRAZOLE 40 MG/10 ML VIAL IV SCH (08:09)
--- NOTE | 2023-12-26 08:56 | P.HPIM ---
History of Present Illness H&P Date: 12/26/23 Chief Complaint: Abdominal pain This is an 78-year-old female who is post laparoscopic cholecystectomy last week with Dr. Alvares who presented to the emergency room with complaints of abdominal pain. Patient also reporting nausea and vomiting. She does report some chest discomfort which she describes as a heaviness on her chest. Patient has been tolerating diet at home and having regular bowel movements. She is seen sitting up on ER stretcher this morning. She is still complaining of some abdominal pain. Imaging has been normal. Last week during hospital stay jose ramon villalba was seen and evaluated by cardiology, echo was normal and they recommended an outpatient stress test. Further medical history as noted below. Review of Systems Constitutional: Denies chills, Denies fever Cardiovascular: Reports chest pain, Denies dyspnea on exertion Respiratory: Denies cough, Denies dyspnea Gastrointestinal: Reports abdominal pain, Reports nausea, Reports vomiting Musculoskeletal: Denies arm numbness/tingling, Denies leg numbness/tingling Neurological: Denies headaches, Denies weakness Past Medical History Past Medical History: Coronary Artery Disease (CAD), Chest Pain / Angina, Hypertension Additional Past Medical History / Comment(s): Chronic Back Pain lately and recently saw Dr. Joyce for this, DDD, DJD, osteoporosis. History of Any Multi-Drug Resistant Organisms: None Reported Past Surgical History: Coronary Bypass/CABG, Heart Catheterization Additional Past Surgical History / Comment(s): 2005 CABG 2 vessel Past Anesthesia/Blood Transfusion Reactions: No Reported Reaction Past Psychological History: Anxiety, Depression Smoking Status: Never smoker Past Alcohol Use History: None Reported Past Drug Use History: None Reported - Past Family History Father Additional Family Medical History / Comment(s): Father had heart problems after the of his daughter. Mother Family Medical History: Myocardial Infarction ([place]) Additional Family Medical History / Comment(s): Mother in her 60s from a [place]. Sister(s) Additional Family Medical History / Comment(s): Sister comitted suicide. Medications and Allergies Home Medications Medication Instructions Recorded Confirmed Type Ascorbic Acid [Vitamin C] 1,000 mg PO DAILY 12/19/23 12/25/23 History Cholecalciferol [Vitamin D3 (25 50 mcg PO DAILY 12/19/23 12/25/23 History Mcg = 1000 Iu)] Melatonin 3 mg PO HS 12/19/23 12/25/23 History Vit A/Vit C/Vit E/Zinc/Copper 1 cap PO DAILY 12/19/23 12/25/23 History [ICAPS SOFTGEL] Vitamin B Complex 1 cap PO DAILY 12/19/23 12/25/23 History Aspirin 81 mg PO DAILY #30 tab 12/22/23 12/25/23 Rx Atorvastatin [Lipitor] 40 mg PO DAILY #30 tab 12/22/23 12/25/23 Rx Losartan [Cozaar] 50 mg PO DAILY #30 tab 12/22/23 12/25/23 Rx Amoxic-Pot Clav 875-125Mg 1 tab PO DIRECTED 12/25/23 12/25/23 History [Augmentin 875-125] HYDROcodone/APAP 7.5-325MG [[place] 1 tab PO Q6H PRN 12/25/23 12/25/23 History 7.5-325] Allergies Allergy/AdvReac Type Severity Reaction Status Date / Time No Known Allergies Allergy Verified 12/25/23 20:44 Physical Exam Vitals: Vital Signs Temp Pulse Pulse Resp BP BP Pulse Ox 12/26/23 07:59 88 18 147/97 96 12/26/23 06:00 90 18 157/84 95 12/26/23 05:00 98.2 F 89 18 155/78 95 12/26/23 04:00 98 18 148/75 95 12/26/23 03:35 96 18 159/89 95 12/26/23 03:00 84 20 199/100 95 12/26/23 02:00 95 18 195/98 97 12/26/23 00:55 85 18 209/91 97 12/25/23 22:46 89 18 181/99 95 12/25/23 20:35 79 20 205/105 95 12/25/23 18:52 80 18 169/102 12/25/23 18:18 85 12 182/105 12/25/23 17:00 98.3 F 89 20 196/98 96 12/25/23 15:27 85 20 213/97 96 12/25/23 14:15 76 20 231/109 95 12/25/23 13:10 97.9 F 69 18 202/81 98 - Constitutional General appearance: cooperative, no acute distress - EENT Eyes: PERRLA - Neck Neck: no lymphadenopathy, normal ROM, no rigidity - Respiratory Respiratory: bilateral: CTA - Cardiovascular Rhythm: regular Heart sounds: normal: S1, S2 - Gastrointestinal no guarding General gastrointestinal: soft, no tenderness - Integumentary Integumentary: normal, normal turgor - Psychiatric Psychiatric: A&O x's 3 Results CBC & Chem 7: 12/25/23 13:48 12/25/23 13:48 Labs: Abnormal Lab Results - Last 24 Hours (Table) 12/25/23 12/25/23 12/25/23 Range/Units 13:48 17:48 20:45 Creatinine 0.50 L (0.52-1.04) mg/dL AST 50 H (14-36) U/L ALT 44 H (4-34) U/L Alkaline Phosphatase 133 H (38-126) U/L Troponin I 0.037 H* 0.042 H* (0.000-0.034) ng/mL Total Protein 6.0 L (6.3-8.2) g/dL Lipase 626 H (23-300) U/L Assessment and Plan (1) History of cholecystectomy Current Visit: Yes Status: Acute Code(s): Z90.49 - ACQUIRED ABSENCE OF OTHER SPECIFIED PARTS OF DIGESTIVE TRACT SNOMED Code(s): 147653405 (2) Chest pain Current Visit: Yes Status: Acute Code(s): R07.9 - CHEST PAIN, UNSPECIFIED SNOMED Code(s): 10325941 (3) Nausea & vomiting Current Visit: Yes Status: Acute Code(s): R11.2 - NAUSEA WITH VOMITING, UNS PECIFIED SNOMED Code(s): 97045741 (4) CAD (coronary artery disease) Current Visit: No Status: Acute Code(s): I25.10 - ATHSCL HEART DISEASE OF [place] CORONARY ARTERY W/O ANG PCTRS SNOMED Code(s): 81308339 (5) Essential hypertension Current Visit: No Status: Acute Code(s): I10 - ESSENTIAL (PRIMARY) HYPERTENSION SNOMED Code(s): 21744242 (6) Abdominal pain Current Visit: Yes Status: Acute Code(s): R10.9 - UNSPECIFIED ABDOMINAL PAIN SNOMED Code(s): 98223579 Plan: May continue home medications. Await recommendations from surgeon. Patient seen and evaluated by nurse practitioner, physician in agreement with plan
[2023-12-26] MEDS ORDERED: NON FORMULARY DRUG (Vitamin B Complex [Vitamin B Complex] 1 EACH Capsule) PO SCH (09:00)
[2023-12-26] MEDS: ATORVASTATIN 40 MG TAB PO SCH (09:44)
[2023-12-26] MEDS: LOSARTAN 50 MG TAB PO SCH (09:44)
[2023-12-26] MEDS: VIT A,C & E-LUTEIN-MINERALS 1 EACH TAB PO SCH (09:44)
[2023-12-26] MEDS: CHOLECALCIFEROL 25 MCG (1000 IU) TABLET PO SCH (09:44)
[2023-12-26] MEDS: ASPIRIN 81 MG PO SCH (09:44)
[2023-12-26] MEDS: ASCORBIC ACID 500 MG TAB PO SCH (09:44)
--- NOTE | 2023-12-26 14:25 | P.GSCN ---
History of Present Illness Consult date: 12/26/23 History of present illness: CHIEF COMPLAINT: Abdominal pain HISTORY OF PRESENT ILLNESS: This is a 78-year-old female who presented to the hospital with complaints of epigastric abdominal pain that radiated up into her chest. Symptoms started yesterday. She denies any nausea or vomiting. She was having diarrhea and flatus. She had recent laparoscopic cholecystectomy on December 20 for cholecystitis. Pathology results did not reveal gallstones present. Patient's lipase and LFTs are mildly elevated. PAST MEDICAL HISTORY: Coronary Artery Disease (CAD), Chest Pain / Angina, Hypertension,2006 CABG 2 vessel PAST SURGICAL HISTORY: See below MEDICATIONS: See below ALLERGIES: See below SOCIAL HISTORY: No illicit drug use. REVIEW OF SYSTEMS: CONSTITUTIONAL: Denies fever or chills. HEENT: Denies blurred vision, vision changes, or eye pain. Denies hemoptysis CARDIOVASCULAR: Denies chest pain or pressure. RESPIRATORY: No shortness of breath. GASTROINTESTINAL: See HPI for pertinent findings HEMATOLOGIC: Denies bleeding disorders. GENITOURINARY: Denies any blood in urine or increased urinary frequency. SKIN: Denies pruitis. Denies rash. PHYSICAL EXAM: VITAL SIGNS: Reviewed GENERAL: Well-developed in no acute distress. HEENT: No sclera icterus. Extraocular movements grossly intact. Moist buccal mucosa. Head is atraumatic, normocephalic. No nasal drainage. ABDOMEN: Soft. Nondistended. epigastric tenderness NEUROLOGIC: Alert and oriented. Cranial nerves II through XII grossly intact. LABORATORY DATA: WBC 9.8 hgb 12.9 platelets 270 Sodium 142 potassium 3.5 creatinine 0.50 Total bilirubin 0.8 AST 50 ALT 44 alk phos 133 Minimally elevated troponins Lipase 626 IMAGING: CTA chest and abdomen reports small volume pneumoperitoneum most concentrated within the right upper quadrant consistent with recent cholecystectomy. No evidence of aortic dissection. 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 Fluid distended stomach of the duodenum correlate for recent ingested meal/fluid. Circumferential wall thickening of the distal esophagus. Mild rectosigmoid colon wall thickening. Correlate with history of colitis. ASSESSMENT: 1. Epigastric abdominal pain 2. Mildly elevated lipase and LFTs. Concern is for possible retained gallstone 3. Recent laparoscopic cholecystectomy for cholecystitis PLAN: -Patient scheduled for MRCP to rule out choledocholithiasis -Patient can have clear liquid diet -Continue supportive care Physician Crawler Crane Operator note has been reviewed by physician. Signing provider agrees with the documented findings, assessment, and plan of care. Past Medical History Past Medical History: Coronary Artery Disease (CAD), Chest Pain / Angina, Hypert ension Additional Past Medical History / Comment(s): Chronic Back Pain lately and recently saw Dr. Joyce for this, DDD, DJD, osteoporosis. History of Any Multi-Drug Resistant Organisms: None Reported Past Surgical History: Coronary Bypass/CABG, Heart Catheterization Additional Past Surgical History / Comment(s): 2005 CABG 2 vessel Past Anesthesia/Blood Transfusion Reactions: No Reported Reaction Past Psychological History: Anxiety, Depression Smoking Status: Never smoker Past Alcohol Use History: None Reported Past Drug Use History: None Reported - Past Family History Father Additional Family Medical History / Comment(s): Father had heart problems after the of his daughter. Mother Family Medical History: Myocardial Infarction (IA) Additional Family Medical History / Comment(s): Mother in her 60s from a IA. Sister(s) Additional Family Medical History / Comment(s): Sister comitted suicide. Medications and Allergies Home Medications Medication Instructions Recorded Confirmed Type Ascorbic Acid [Vitamin C] 1,000 mg PO DAILY 12/19/23 12/25/23 History Cholecalciferol [Vitamin D3 (25 50 mcg PO DAILY 12/19/23 12/25/23 History Mcg = 1000 Iu)] Melatonin 3 mg PO HS 12/19/23 12/25/23 History Vit A/Vit C/Vit E/Zinc/Copper 1 cap PO DAILY 12/19/23 12/25/23 History [ICAPS SOFTGEL] Vitamin B Complex 1 cap PO DAILY 12/19/23 12/25/23 History Aspirin 81 mg PO DAILY #30 tab 12/22/23 12/25/23 Rx Atorvastatin [Lipitor] 40 mg PO DAILY #30 tab 12/22/23 12/25/23 Rx Losartan [Cozaar] 50 mg PO DAILY #30 tab 12/22/23 12/25/23 Rx Amoxic-Pot Clav 875-125Mg 1 tab PO DIRECTED 12/25/23 12/25/23 History [Augmentin 875-125] HYDROcodone/APAP 7.5-325MG [[place] 1 tab PO Q6H PRN 12/25/23 12/25/23 History 7.5-325] Allergies Allergy/AdvReac Type Severity Reaction Status Date / Time No Known Allergies Allergy Verified 12/25/23 20:44 Surgical - Exam Vital Signs Temp Pulse Resp BP Pulse Ox 97.9 F 69 18 202/81 98 12/25/23 13:10 12/25/23 13:10 12/25/23 13:10 12/25/23 13:10 12/25/23 13:10 Results - Labs 12/25/23 13:48 12/25/23 13:48 Abnormal Lab Results - Last 24 Hours (Table) 12/25/23 12/25/23 12/25/23 Range/Units 13:48 17:48 20:45 Creatinine 0.50 L (0.52-1.04) mg/dL AST 50 H (14-36) U/L ALT 44 H (4-34) U/L Alkaline Phosphatase 133 H (38-126) U/L Troponin I 0.037 H* 0.042 H* (0.000-0.034) ng/mL Total Protein 6.0 L (6.3-8.2) g/dL Lipase 626 H (23-300) U/L Diabetes panel 12/25/23 Range/Units 13:48 Sodium 142 (137-145) mmol/L Potassium 3.5 (3.5-5.1) mmol/L Chloride 106 (98-107) mmol/L Carbon Dioxide 26 (22-30) mmol/L BUN 10 (7-17) mg/dL Creatinine 0.50 L (0.52-1.04) mg/dL Glucose 91 (74-99) mg/dL Calcium 9.2 (8.4-10.2) mg/dL AST 50 H (14-36) U/L ALT 44 H (4-34) U/L Alkaline Phosphatase 133 H (38-126) U/L Total Protein 6.0 L (6.3-8.2) g/dL Albumin 3.6 (3.5-5.0) g/dL Calcium panel 12/25/23 Range/Units 13:48 Calcium 9.2 (8.4-10.2) mg/dL Albumin 3.6 (3.5-5.0) g/dL Pituitary panel 12/25/23 Range/Units 13:48 Sodium 142 (137-145) mmol/L Potassium 3.5 (3.5-5.1) mmol/L Chloride 106 (98-107) mmol/L Carbon Dioxide 26 (22-30) mmol/L BUN 10 (7-17) mg/dL Creatinine 0.50 L (0.52-1.04) mg/dL Glucose 91 (74-99) mg/dL Calcium 9.2 (8.4-10.2) mg/dL Adrenal panel 12/25/23 Range/Units 13:48 Sodium 142 (137-145) mmol/L Potassium 3.5 (3.5-5.1) mmol/L Chloride 106 (98-107) mmol/L Carbon Dioxide 26 (22-30) mmol/L BUN 10 (7-17) mg/dL Creatinine 0.50 L (0.52-1.04) mg/dL Glucose 91 (74-99) mg/dL Calcium 9.2 (8.4-10.2) mg/dL Total Bilirubin 0.8 (0.2-1.3) mg/dL AST 50 H (14-36) U/L ALT 44 H (4-34) U/L Alkaline Phosphatase 133 H (38-126) U/L Total Protein 6.0 L (6.3-8.2) g/dL Albumin 3.6 (3.5-5.0) g/dL
[2023-12-26] MEDS: HYDROcodone/APAP 7.5-325MG 1 EACH TAB PO PRN (19:45)
[2023-12-26] MEDS: MELATONIN 3 MG TABLET PO SCH (21:25)
--- NOTE | 2023-12-27 08:33 | P.PN ---
Subjective Progress Note Date: 12/27/23 Principal diagnosis: Abdominal pain This is an 78-year-old female who is post laparoscopic cholecystectomy last week with Dr. Alvares who presented to the emergency room with complaints of abdominal pain. Imaging normal on admission but patient did have an elevated lipase and LFTs. Patient was seen and evaluated by surgeon who is recommending an MRCP today. Patient still reporting some abdominal discomfort today. She was able to tolerate clear liquids yesterday. Vital signs remain stable. Objective - Vital Signs Vital signs: Vital Signs Temp 98.2 F 12/26/23 21:27 Pulse 90 12/27/23 04:00 Resp 20 12/27/23 04:00 BP 131/61 12/27/23 04:00 Pulse Ox 97 12/27/23 04:00 FiO2 Intake & Output 12/26/23 12/27/23 12/27/23 18:59 06:59 18:59 Intake Total 600 Balance 600 Weight 48.534 kg Intake: Intake, IV Titration 600 Amount Sodium Chloride 0.9% 1, 600 000 ml @ 75 mls/hr IV . [id number] [facility] Rx#:[id number] Other: # Voids 3 2 - Constitutional General appearance: Present: cooperative, no acute distress - EENT Eyes: Present: PERRLA - Neck Neck: Present: normal ROM. Absent: lymphadenopathy, rigidity - Respiratory Respiratory: bilateral: CTA - Cardiovascular Rhythm: regular Heart sounds: normal: S1, S2 - Gastrointestinal General gastrointestinal: Present: soft, tenderness - Integumentary Integumentary: Present: normal, normal turgor - Psychiatric Psychiatric: Present: A&O x's 3 - Labs CBC & Chem 7: 12/25/23 13:48 12/25/23 13:48 Assessment and Plan (1) History of cholecystectomy Current Visit: Yes Status: Acute Code(s): Z90.49 - ACQUIRED ABSENCE OF OTHER SPECIFIED PARTS OF DIGESTIVE TRACT SNOMED Code(s): 609914787 (2) Chest pain Current Visit: Yes Status: Acute Code(s): R07.9 - CHEST PAIN, UNSPECIFIED SNOMED Code(s): 10132957 (3) Nausea & vomiting Current Visit: Yes Status: Acute Code(s): R11.2 - NAUSEA WITH VOMITING, UNSPECIFIED SNOMED Code(s): 36518213 (4) CAD (coronary artery disease) Current Visit: No Status: Acute Code(s): I25.10 - ATHSCL HEART DISEASE OF [place] CORONARY ARTERY W/O ANG PCTRS SNOMED Code(s): 52955730 (5) Essential hypertension Current Visit: No Status: Acute Code(s): I10 - ESSENTIAL (PRIMARY) HYPERTENSION SNOMED Code(s): 68779629 (6) Abdominal pain Current Visit: Yes Status: Acute Code(s): R10.9 - UNSPECIFIED ABDOMINAL PAIN SNOMED Code(s): 52245795 Plan: Await results of MRCP. Patient seen and evaluated by nurse practitioner, physician in agreement with plan
[2023-12-27 08:46] LABS: Potassium 3.7 mmol/L (3.5-5.1)
[2023-12-27 08:47] LABS: ALT 23 U/L (4-34); AST 19 U/L (14-36); African American GFR (CKD) >90 (>60 ml/min/1.73 sqM); Albumin 2.3 g/dL (3.5-5.0); Alkaline Phosphatase 70 U/L (38-126); Anion Gap 6 mmol/L; Blood Urea Nitrogen 51 mg/dL (7-17); Calcium 8.4 mg/dL (8.4-10.2); Carbon Dioxide 22 mmol/L (22-30); Chloride 114 mmol/L (98-107); Glucose 101 mg/dL (74-99); Lipase 1238 U/L (23-300); Non-African American GFR(CKD) 80 (>60 ml/min/1.73 sqM); Sodium 142 mmol/L (137-145); Total Bilirubin 0.2 mg/dL (0.2-1.3); Total Protein 4.3 g/dL (6.3-8.2)
--- NOTE | 2023-12-27 12:22 | MR ---
EXAMINATION TYPE: MR MRCP DATE OF EXAM: 12/27/2023 10:46 AM CLINICAL INDICATION:Female, 78 years old with history of Abdominal pain, elevated LFTs,r/o choledocho lithia; PHH, Abdomen pain, elevated LFTs, gallbladder removal 12-21-23 COMPARISON: CT 12/25/2023 TECHNIQUE: Multi planar, T2-weighted imaging with and without fat saturation and chemical shift imag ing was performed of the abdomen. Then, heavily T2 weighted imaging (half-Fourier acquisition single- shot turbo spin-echo) was utilized in order to study the biliary system. Maximum intensity projectio n images were reconstructed from the original data of the biliary tree. 3D images were created on a Rev work station. No Gadolinium given. FINDINGS: Lower Thorax: Trace bilateral pleural effusions. Mild cardiomegaly. MRCP: * The intrahepatic ducts have a normal appearance. * The common bile duct at the level of the pancreatic head measures 7 mm in size. * The common hepatic duct measures 8 mm in size. * The pancreatic duct is normal. The gallbladder appears surgically absent medial low insertion of the cystic duct. Abdomen: Liver: Unremarkable. Pancreas: Unremarkable. Spleen: Unremarkable. Adrenal glands: Unremarkable. Kidneys: Unremarkable. Stomach and Bowel: Moderate hiatal hernia. Peritoneum: No evidence of pneumoperitoneum or free fluid. Vasculature: Unremarkable. No aortic aneurysm. Musculoskeletal: The osseous structures appear intact. Lymph Nodes: No gross evidence for lymphadenopathy. Abdominal wall: Unremarkable. IMPRESSION: 1. No evidence to suggest ductal stricture, choledocholithiasis, or biliary ductal dilatation. 2. Post cholecystectomy changes. No organizing fluid collection in the gallbladder fossa. 3. Moderate hiatal hernia
[2023-12-27 14:17] VITALS: BMI 21.6
--- NOTE | 2023-12-27 14:54 | P.PN ---
Subjective Progress Note Date: 12/27/23 CHIEF COMPLAINT: Epigastric abdominal pain HISTORY OF PRESENT ILLNESS: Patient's pain has improved. She had an MRCP completed today that reported no evidence to suggest ductal stricture, choledocholithiasis or biliary ductal dilatation. No organizing fluid collection in the gallbladder fossa. Moderate hiatal hernia. Patient denies any nausea or vomiting. She is asking to eat. Afebrile. LFTs have normalized. Lipase did go up from 6 26-1238 PHYSICAL EXAM: VITAL SIGNS: Reviewed. GENERAL: Well-developed in no acute distress. ABDOMEN: Soft. Nondistended. Nontender. ASSESSMENT: 1. Epigastric abdominal pain improved. No evidence of choledocholithiasis on MRCP. LFTs have normalized 2. Pancreatitis 3. Recent laparoscopic cholecystectomy PLAN: -Advance diet to low-fat -Repeat lipase in a.m. -Continue supportive care Physician Metalizer note has been reviewed by physician. Signing provider agrees with the documented findings, assessment, and plan of care. Objective - Vital Signs Vital signs: Vital Signs Temp 98.1 F 12/27/23 11:33 Pulse 72 12/27/23 13:29 Resp 14 12/27/23 13:29 BP 129/60 12/27/23 11:33 Pulse Ox 92 L 12/27/23 11:33 FiO2 Intake & Output 12/26/23 12/27/23 12/27/23 18:59 06:59 18:59 Intake Total 600 Balance 600 Weight 48.534 kg 48.534 kg Intake: Intake, IV Titration 600 Amount Sodium Chloride 0.9% 1, 600 000 ml @ 75 mls/hr IV . [id number] [facility] Rx#:[id number] Other: # Voids 3 2 2 - Labs CBC & Chem 7: 12/25/23 13:48 12/27/23 07:15 Labs: Abnormal Lab Results - Last 24 Hours (Table) 12/27/23 Range/Units 07:15 Chloride 114 H (98-107) mmol/L BUN 51 H (7-17) mg/dL Glucose 101 H (74-99) mg/dL Total Protein 4.3 L (6.3-8.2) g/dL Albumin 2.3 L (3.5-5.0) g/dL Lipase 1238 H (23-300) U/L
[2023-12-27] MEDS ORDERED: ACETAMINOPHEN TAB 325 MG TAB PO PRN (16:35)
--- NOTE | 2023-12-28 14:27 | P.PN ---
Subjective Progress Note Date: 12/28/[address] Lagos This is an 78-year-old female who is post laparoscopic cholecystectomy last week with Dr. Alvares who presented to the emergency room with complaints of abdominal pain. Imaging normal on admission but patient did have an elevated lipase and LFTs. Patient was seen and evaluated by surgeon who is recommending an MRCP today. Patient still reporting some abdominal discomfort today. She was able to tolerate clear liquids yesterday. Vital signs remain stable. 12/28/2023 Patient is seen and evaluated in follow-up today with family member at the bedside. Patient is status post cholecystectomy with general surgery last week underwent MRCP yesterday which showed no ductal stricture, choledocholithiasis or biliary ductal dilatation and of noted recent postcholecystectomy changes with no organizing fluid collection in the gallbladder. LFTs have normalized although lipase remains mildly elevated concerns for acute pancreatitis. Patient continues to have some mild abdominal pain with no reported nausea although not much of an appetite. Continue with supplements and small frequent meals and has been advanced to a low-fat dysphagia 3 diet per surgery. Patient with generalized weakness will have PT/OT therapy evaluate the patient. Patient also presented to the hospital initially with some chest pain and mildly elevated troponins, will have cardiology evaluate the patient and appreciate input and recommendations. Patient is currently afebrile with no reported chest discomfort or palpitations. Patient denies shortness of breath and reports no nausea or vomiting. Review of systems: Constitutional: No reports of fatigue, fever, or chills Cardiovascular: No reports of chest pain or palpitations Respiratory: No reports of shortness of breath or cough GI: No reports of nausea, vomiting, or diarrhea : No reports of dysuria or retention Neurovascular: No reports of weakness or numbness All medications have been reviewed Active Medications Acetaminophen (Acetaminophen Tab 325 Mg Tab) 650 mg PO Q6HR PRN PRN Reason: Fever and/ or Pain Hydrocodone Bitart/Acetaminophen (Hydrocodone/Apap 7.5-325mg 1 Each Tab) 1 each PO Q6H PRN PRN Reason: Pain Last Admin: 12/26/23 19:45 Dose: 1 each Ascorbic Acid (Ascorbic Acid 500 Mg Tab) 1,000 mg PO DAILY [facility] Last Admin: 12/28/23 08:41 Dose: Not Given Aspirin (Aspirin 81 Mg) 81 mg PO DAILY [facility] Last Admin: 12/28/23 08:40 Dose: 81 mg Atorvastatin Calcium (Atorvastatin 40 Mg Tab) 40 mg PO DAILY [facility] Last Admin: 12/28/23 08:40 Dose: 40 mg Cholecalciferol (Cholecalciferol 25 Mcg (1000 Iu) Tablet) 50 mcg PO DAILY [facility] Last Admin: 12/28/23 08:40 Dose: 50 mcg Hydralazine HCl (Hydralazine Hcl 20 Mg/Ml 1 Ml Vial) 5 mg IVP Q6HR PRN PRN Reason: Blood Pressure - High Last Admin: 12/26/23 03:10 Dose: 5 mg Hydromorphone HCl (Hydromorphone 0.5 Mg/0.5 Ml Syringe) 0.5 mg IVP Q3HR PRN PRN Reason: Moderate Pain (Scale 4 to 6) Last Admin: 12/26/23 11:48 Dose: 0.5 mg Sodium Chloride (Saline 0.9%) 1,000 mls @ 75 mls/hr IV .[id number] [facility] Last Admin: 12/28/23 08:43 Dose: 75 mls/hr Losartan Potassium (Losartan 50 Mg Tab) 50 mg PO DAILY [facility] Last Admin: 12/28/23 08:40 Dose: 50 mg Melatonin (Melatonin 3 Mg Tablet) 3 mg PO HS [facility] Last Admin: 12/27/23 20:26 Dose: 3 mg Metoprolol Tartrate (Metoprolol Tartrate 25 Mg Tab) 25 mg PO BID [facility] Last Admin: 12/28/23 08:40 Dose: 25 mg Multivitamins/Minerals (Vit A,C & X-Sfbomg-Fufxggxu 1 Each Tab) 1 each PO DAILY [facility] Last Admin: 12/28/23 08:40 Dose: 1 each Naloxone HCl (Naloxone 0.4 Mg/Ml 1 Ml Vial) 0.2 mg IV Q2M PRN PRN Reason: Opioid Reversal Ondansetron HCl (Ondansetron 4 Mg/2 Ml Vial) 4 mg IVP Q8HR PRN PRN Reason: Nausea And Vomiting Pantoprazole Sodium (Pantoprazole 40 Mg/10 Ml Vial) 40 mg IV DAILY [facility] Last Admin: 12/28/23 08:40 Dose: 40 mg Physical exam: Gen: This is a 78-year-old female who is awake, alert and oriented x 2-3, well- developed, elderly appearing, extremely hard of hearing, thin built HEENT: Head is atraumatic, normocephalic. Pupils equal, round. Sclerae is anicteric. NECK: Supple. No JVD. No lymphadenopathy. No thyromegaly. LUNGS: Diminished breath sounds bilaterally otherwise clear to auscultation. No wheezes or rhonchi. No intercostal retractions. HEART: S1, S2 are muffled ABDOMEN: Soft. Mildly tender. Bowel sounds are present. No masses. EXTREMITIES: No pedal edema. No calf tenderness. NEUROLOGICAL: Patient is awake, alert and oriented x3. Cranial nerves 2 through 12 are grossly intact. Diffusely weak Assessment: Abdominal pain with nausea and vomiting possibly secondary to acute pancreatitis Recent laparoscopic cholecystectomy last week Chest pain, ruled out ACS History of coronary artery disease History of hypertension History of degenerative joint disease History of anxiety/depression GI prophylaxis DVT prophylaxis Full code with no mechanical ventilation Plan: Patient is status post MRCP which showed no evidence to suggest ductal stricture, choledocholithiasis or biliary ductal dilatation with postcholecystectomy changes and no organizing fluid collection in the gallbladder. Of note there is a moderate hiatal hernia noted. Patient was started on clear liquids and tolerating and has been advanced to low-fat dysphagia 3 Diet per surgery Patient did present to the hospital with some chest pain and had some mildly elevated troponins, will consult cardiology and appreciate input and recommendations Labs reviewed and lipase is trending down currently 1070 from 1238 yesterday, LFTs within normal limits. Will follow-up on repeat labs and continue to monitor closely Will have physical therapy evaluate the patient as patient is genuinely weak and not eating much Due to multiple complex medical issues, prognosis is guarded Possible discharge planning in the next 24 to 48 hours The impression and plan of care has been dictated by Saundra Shields, Nurse Practitioner as directed. Dr. Darrel MD I have performed a history and examination and MDM of this patient, discussed the same with the dictator, and agree with the dictator's assessment and plan as written ,documented as a scribe. Based on total visit time, I have performed more than 50% of the visit. Objective - Vital Signs Vital signs: Vital Signs Temp 97.7 F 12/28/23 08:00 Pulse 59 L 12/28/23 12:00 Resp 16 12/28/23 12:00 BP 115/63 12/28/23 12:00 Pulse Ox 99 12/28/23 12:00 FiO2 Intake & Output 12/27/23 12/28/23 12/28/23 18:59 06:59 18:59 Intake Total 1720 240 Balance 1720 240 Weight 48.534 kg Intake: Intake, IV Titration 600 Amount Sodium Chloride 0.9% 1, 600 000 ml @ 75 mls/hr IV . [id number] [facility] Rx#:[id number] Oral 1120 240 Other: Voiding Method Toilet Toilet # Voids 1 1 - Labs CBC & Chem 7: 12/25/23 13:48 12/27/23 07:15 Labs: Abnormal Lab Results - Last 24 Hours (Table) 12/28/23 Range/Units 09:36 Lipase 1070 H (23-300) U/L
--- NOTE | 2023-12-28 15:27 | P.PN ---
Subjective Progress Note Date: 12/28/23 CHIEF COMPLAINT: Epigastric abdominal pain HISTORY OF PRESENT ILLNESS: Patient denies any abdominal pain. She tolerated the low-fat diet. Her oral intake is poor. Patient drinks Ensure and eats small amount of rice crispies at home. Family also concerned of how weak patient is. She denies any nausea or vomiting. She had an MRCP completed that reported no evidence to suggest ductal stricture, choledocholithiasis or biliary ductal dilatation. No organizing fluid collection in the gallbladder fossa. Moderate hiatal hernia. Lipase down to 1070 Patient seen and examined with Dr. Alvares PHYSICAL EXAM: VITAL SIGNS: Reviewed. GENERAL: Well-developed in no acute distress. ABDOMEN: Soft. Nondistended. Nontender. ASSESSMENT: 1. Epigastric abdominal pain improved. No evidence of choledocholithiasis on MRCP. LFTs have normalized. Patient likely passed a stone 2. Pancreatitis 3. Recent laparoscopic cholecystectomy 4. Moderate sized hiatal hernia PLAN: -Upper GI ordered due to patient's abdominal pain and hiatal hernia -Continue low-fat diet -Consult PT OT to ambulate patient Physician Shank Sorter note has been reviewed by physician. Signing provider agrees with the documented findings, assessment, and plan of care. Objective - Vital Signs Vital signs: Vital Signs Temp 97.7 F 12/28/23 08:00 Pulse 59 L 12/28/23 12:00 Resp 16 12/28/23 12:00 BP 115/63 12/28/23 12:00 Pulse Ox 99 12/28/23 12:00 FiO2 Intake & Output 12/27/23 12/28/23 12/28/23 18:59 06:59 18:59 Intake Total 1720 360 Balance 1720 360 Weight 48.534 kg Intake: Intake, IV Titration 600 Amount Sodium Chloride 0.9% 1, 600 000 ml @ 75 mls/hr IV . [id number] [facility] Rx#:[id number] Oral 1120 360 Other: Voiding Method Toilet Toilet # Voids 1 1 - Labs CBC & Chem 7: 12/25/23 13:48 12/27/23 07:15 Labs: Abnormal Lab Results - Last 24 Hours (Table) 12/28/23 Range/Units 09:36 Lipase 1070 H (23-300) U/L
[2023-12-29] MEDS: amLODIPine 5 MG TAB PO SCH (10:23)
--- NOTE | 2023-12-29 11:23 | FL ---
EXAMINATION TYPE: FL UGI DATE OF EXAM: 12/29/2023 COMPARISON: None HISTORY: Hiatal hernia, dysphagia TECHNIQUE: A double air contrast UGI study is performed. FINDINGS: Esophagus has a normal caliber and normal contour to the gastroesophageal junction. Gastroesophageal junction opens to normal caliber. There is a moderate size hiatal hernia identified during the examin ation. Reflux was not identified. Fundus, body, and antrum of the stomach otherwise appears normal. No intraluminal or extramural defec ts evident. Barium readily empties into the normally positioned duodenal cap and sweep. There may be a duodenal ulcer present. This resides within the proximal first portion of the duodenal bulb. Small duodenal diverticulum is noted within the second portion of the duodenum. There is compl ete stripping of the esophageal bolus in the horizontal drinking position. Fluoroscopy time: 58 seconds. DAP: 1685.82 Images: 140 IMPRESSION: 1. Moderate size hiatal hernia. 2. Suspect duodenal bulb ulcer superior proximal duodenal bulb. 3. Small duodenal diverticulum second portion duodenum
--- NOTE | 2023-12-29 12:33 | P.PN ---
Subjective Progress Note Date: 12/29/23 Patient's esophagram upper GI shows evidence of a fairly large hiatal hernia. Patient also has questionable duodenal ulcer. Patient's had limited oral intake. Objective - Vital Signs Vital signs: Vital Signs Temp 98.3 F 12/29/23 04:00 Pulse 59 L 12/29/23 08:00 Resp 16 12/29/23 08:00 BP 159/60 12/29/23 08:00 Pulse Ox 96 12/29/23 08:00 FiO2 Intake & Output 12/28/23 12/29/23 12/29/23 18:59 06:59 18:59 Intake Total 480 Balance 480 Intake: Oral 480 Other: Voiding Method Toilet Toilet Toilet # Voids 1 - Labs CBC & Chem 7: 12/25/23 13:48 12/27/23 07:15 Assessment and Plan Plan: Moderate size hiatal hernia. Patient will be observed currently. She may benefit from repair of her hiatal hernia. Patient's had trouble eating for several years. I discussed these findings with the patient's daughter. We will potentially plan for outpatient repair 1 she improves overall.
--- NOTE | 2023-12-29 12:36 | P.CRDCN ---
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 We have been asked to evaluate the patient for chest pain and elevated troponins. Patient had a recent hospitalization 12/18 - 12/21 for chest pain and underwent cholecystectomy during that hospitalization. Patient did have elevated troponins at 0.012, 0.015, 0.057, 0.158, 0.224. Patient states th at when she left here on of last week, she did not have any pain but then on Tuesday she started developing abdominal pain and chest pain. Chest pain is located in the lower sternal area. She does also have a history of hiatal hernia. Pain radiates to the bilateral shoulders. She also had dizziness, no palpitations, no cough no fever or chills. She has been followed by general surgery and is scheduled for an upper GI today. Daughter also states that at home her blood pressure prior to arrival was 233/119. Patient denies having any chest pain or abdominal pain at the time of evaluation. EKG sinus rhythm, Q waves in inferior leads, nonspecific ST changes, sinus tachycardia Chest x-ray: No acute findings CTA of the thoracic, abdominal pelvic aorta revealed small volume pneumop eritoneum consistent with recent cholecystectomy. No evidence of aortic dissection. 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 Fluid distended stomach and duodenum correlate with recent ingested food. Circum ferential wall thickening of the distal esophagus recommend evaluation with EGD. Trace pleural effusions. Mild rectosigmoid colon wall thickening correlate for history of colitis. MRCP: No evidence of ductal stricture, choledocholithiasis, biliary ductal dilatation. CBC, INR, electrolytes normal. BUN 51 creatinine 0.72. Liver function test are normal. Troponin 0.034, 0.037 and 0.042. Lipase 1238. TSH 0.74. Home cardiac medications: Aspirin 81 mg daily, atorvastatin 40 mg daily, losartan 50 mg daily. Echocardiogram performed 12/20/2023 reveals EF of 55 to 60%, mild concentric left hypertrophy, mild MR. Review Of Systems: At the time of my exam: CONSTITUTIONAL: Denies fever or chills. HEENT: Denies blurred vision, vision changes, or eye pain. Denies hemoptysis CARDIOVASCULAR: Denies chest pain. Denies orthopnea. Denies PND. Denies palpitations RESPIRATORY: Denies shortness of breath. GASTROINTESTINAL: Reports no abdominal pain. Denies nausea or vomiting. HEMATOLOGIC: Denies bleeding disorders. GENITOURINARY: Denies any blood in urine. SKIN: Denies pruitis. Denies rash. Physical examination: Gen: This is an 78-year-old female in no acute distress VS: reviewed HEENT: Head is atraumatic, normocephalic. Pupils equal, round. Sclerae is anicteric. Hard of hearing. NECK: Supple. No JVD. LUNGS: Clear to auscultation. No wheezes or rhonchi. No intercostal retractions. HEART: Regular rate and rhythm. Systolic murmur at the right sternal border, systolic murmur at the left mid sternal border. ABDOMEN: Soft No tenderness. EXTREMITIES: No pedal edema. No calf tenderness. NEUROLOGICAL: Patient is awake, alert and oriented x3. Assessment: Elevated troponin profile does not reflect acute coronary ischemia Accelerated hypertension History of coronary artery disease with previous CABG in 2005 and stent placement Hyperlipidemia Abdominal pain Hiatal hernia Plan: Continue patient's home cardiac medications Add amlodipine 5 mg daily Discontinue as needed hydralazine No need to repeat echocardiogram good on-the-fly like that Further recommendations to follow based upon clinical course Thank you kindly for this consultation. Nurse practitioner note has been reviewed, I agree with documented findings and plan of care. Patient was seen and examined. Which 1 Past Medical History Past Medical History: Coronary Artery Disease (CAD), Chest Pain / Angina, Hypertension Additional Past Medical History / Comment(s): Chronic Back Pain lately and recently saw Dr. Joyce for this, DDD, DJD, osteoporosis. History of Any Multi-Drug Resistant Organisms: None Reported Past Surgical History: Coronary Bypass/CABG, Heart Catheterization Additional Past Surgical History / Comment(s): 2006 CABG 2 vessel, depression Past Anesthesia/Blood Transfusion Reactions: No Reported Reaction Past Psychological History: Anxiety, Depression Additional Psychological History / Comment(s): . Smoking Status: Never smoker Past Alcohol Use History: None Reported Past Drug Use History: None Reported - Past Family History Father Additional Family Medical History / Comment(s): Father had heart problems after the of his daughter. Mother Family Medical History: Myocardial Infarction (DC) Additional Family Medical History / Comment(s): Mother in her 60s from a DC. Sister(s) Additional Family Medical History / Comment(s): Sister comitted suicide. Medications and Allergies Home Medications Medication Instructions Recorded Confirmed Type Ascorbic Acid [Vitamin C] 1,000 mg PO DAILY 12/19/23 12/25/23 History Cholecalciferol [Vitamin D3 (25 50 mcg PO DAILY 12/19/23 12/25/23 History Mcg = 1000 Iu)] Melatonin 3 mg PO HS 12/19/23 12/25/23 History Vit A/Vit C/Vit E/Zinc/Copper 1 cap PO DAILY 12/19/23 12/25/23 History [ICAPS SOFTGEL] Vitamin B Complex 1 cap PO DAILY 12/19/23 12/25/23 History Aspirin 81 mg PO DAILY #30 tab 12/22/23 12/25/23 Rx Atorvastatin [Lipitor] 40 mg PO DAILY #30 tab 12/22/23 12/25/23 Rx Losartan [Cozaar] 50 mg PO DAILY #30 tab 12/22/23 12/25/23 Rx Amoxic-Pot Clav 875-125Mg 1 tab PO DIRECTED 12/25/23 12/25/23 History [Augmentin 875-125] HYDROcodone/APAP 7.5-325MG [[place] 1 tab PO Q6H PRN 12/25/23 12/25/23 History 7.5-325] Allergies Allergy/AdvReac Type Severity Reaction Status Date / Time No Known Allergies Allergy Verified 12/25/23 20:44 Physical Exam Vitals: Vital Signs Temp Pulse Resp BP BP Pulse Ox 12/29/23 08:00 59 L 16 159/60 96 12/29/23 04:00 98.3 F 74 19 164/74 95 12/29/23 02:00 61 18 12/29/23 00:00 98.4 F 61 16 126/62 95 12/28/23 20:00 98.6 F 66 18 133/63 97 12/28/23 19:48 98.6 F 66 16 133/63 97 12/28/23 17:20 72 18 12/28/23 16:00 98.1 F 72 18 124/61 98 12/28/23 12:00 59 L 16 115/63 99 Intake and Output 12/28/23 12/29/23 12/29/23 22:59 06:59 14:59 Intake Total 120 Balance 120 Intake: Oral 120 Other: Voiding Method Toilet Toilet # Voids 1 Results 12/25/23 13:48 12/27/23 07:15 Current Medications Generic Name Dose Route Start Last Admin Trade Name Freq PRN Reason Stop Dose Admin Acetaminophen 650 mg 12/27/23 16:35 Acetaminophen Tab 325 Mg Tab PO Q6HR PRN Fever and/ or Pain Hydrocodone Bitart/Acetaminophen 1 each 12/26/23 08:50 12/26/23 19:45 Hydrocodone/Apap 7.5-325mg 1 Each Tab PO 1 each Q6H PRN Administration Pain Ascorbic Acid 1,000 mg 12/26/23 09:00 12/28/23 08:41 Ascorbic Acid 500 Mg Tab PO Not Given DAILY BELINDA Aspirin 81 mg 12/26/23 09:00 12/28/23 08:40 Aspirin 81 Mg PO 81 mg DAILY BELINDA Administration Atorvastatin Calcium 40 mg 12/26/23 09:00 12/28/23 08:40 Atorvastatin 40 Mg Tab PO 40 mg DAILY BELINDA Administration Cholecalciferol 50 mcg 12/26/23 09:00 12/28/23 08:40 Cholecalciferol 25 Mcg (1000 Iu) Tablet PO 50 mcg DAILY BELINDA Administration Hydralazine HCl 5 mg 12/25/23 20:49 12/26/23 03:10 Hydralazine Hcl 20 Mg/Ml 1 Ml Vial IVP 5 mg Q6HR PRN Administration Blood Pressure - High Hydromorphone HCl 0.5 mg 12/25/23 16:08 12/26/23 11:48 Hydromorphone 0.5 Mg/0.5 Ml Syringe IVP 0.5 mg Q3HR PRN Administration Moderate Pain (Scale 4 to 6) Sodium Chloride 1,000 mls @ 75 mls/hr 12/25/23 16:15 12/28/23 21:41 Saline 0.9% IV 75 mls/hr .[id number] BELINDA Administration Losartan Potassium 50 mg 12/26/23 09:00 12/28/23 08:40 Losartan 50 Mg Tab PO 50 mg DAILY BELINDA Administration Melatonin 3 mg 12/26/23 21:00 12/28/23 20:51 Melatonin 3 Mg Tablet PO 3 mg HS BELINDA Administration Metoprolol Tartrate 25 mg 12/25/23 21:00 12/28/23 20:51 Metoprolol Tartrate 25 Mg Tab PO 25 mg BID BELINDA Administration Multivitamins/Minerals 1 each 12/26/23 09:00 12/28/23 08:40 Vit A,C & F-Bsyfzk-Hxbofyqo 1 Each Tab PO 1 each DAILY BELINDA Administration Naloxone HCl 0.2 mg 12/25/23 16:08 Naloxone 0.4 Mg/Ml 1 Ml Vial IV Q2M PRN Opioid Reversal Ondansetron HCl 4 mg 12/25/23 16:08 Ondansetron 4 Mg/2 Ml Vial IVP Q8HR PRN Nausea And Vomiting Pantoprazole Sodium 40 mg 12/26/23 09:00 12/29/23 08:17 Pantoprazole 40 Mg/10 Ml Vial IV 40 mg DAILY BELINDA Administration Intake and Output 12/28/23 12/29/23 12/29/23 22:59 06:59 14:59 Intake Total 120 Balance 120 Intake: Oral 120 Other: Voiding Method Toilet Toilet # Voids 1 12/25/23 13:48 12/27/23 07:15
[2023-12-29 13:53] LABS: Basophils % (A) 0 %; Eosinophils # (A) 0.1 k/uL (0-0.7); Eosinophils % (A) 1 %; HCT 24.1 % (34.0-46.0); Hypochromasia Slight; Lymphocytes # (A) 1.4 k/uL (1.0-4.8); Lymphocytes % (A) 14 %; MCH 27.4 pg (25.0-35.0); MCV 88.4 fL (80.0-100.0); Mean Platelet Volume 7.8; Monocytes # (A) 0.5 k/uL (0-1.0); Monocytes % (A) 5 %; Neutrophils # (A) 7.9 k/uL (1.3-7.7); Neutrophils % (A) 79 %; Platelet Count 340 k/uL (150-450); Poikilocytosis Slight; RBC 2.73 m/uL (3.80-5.40); RDW 15.5 % (11.5-15.5); WBC 10.1 k/uL (3.8-10.6)
[2023-12-29 14:16] LABS: ALT 26 U/L (4-34); AST 34 U/L (14-36); African American GFR (CKD) >90 (>60 ml/min/1.73 sqM); Albumin 2.5 g/dL (3.5-5.0); Alkaline Phosphatase 75 U/L (38-126); Amylase 118 U/L (30-110); Anion Gap 5 mmol/L; Blood Urea Nitrogen 15 mg/dL (7-17); Carbon Dioxide 20 mmol/L (22-30); Chloride 118 mmol/L (98-107); Glucose 120 mg/dL (74-99); Lipase 763 U/L (23-300); Magnesium 1.7 mg/dL (1.6-2.3); Non-African American GFR(CKD) 87 (>60 ml/min/1.73 sqM); Potassium 3.5 mmol/L (3.5-5.1); Sodium 143 mmol/L (137-145); Total Bilirubin 0.5 mg/dL (0.2-1.3); Total Protein 4.8 g/dL (6.3-8.2)
[2023-12-29] MEDS ORDERED: Magnesium Replacement Protocol 1 EACH MISC MISCELLANE PRN (14:18)
--- NOTE | 2023-12-29 14:24 | P.PN ---
Subjective Progress Note Date: 12/29/[address] Lagos This is an 78-year-old female who is post laparoscopic cholecystectomy last week with Dr. Alvares who presented to the emergency room with complaints of abdominal pain. Imaging normal on admission but patient did have an elevated lipase and LFTs. Patient was seen and evaluated by surgeon who is recommending an MRCP today. Patient still reporting some abdominal discomfort today. She was able to tolerate clear liquids yesterday. Vital signs remain stable. 12/28/2023 Patient is seen and evaluated in follow-up today with family member at the bedside. Patient is status post cholecystectomy with general surgery last week underwent MRCP yesterday which showed no ductal stricture, choledocholithiasis or biliary ductal dilatation and of noted recent postcholecystectomy changes with no organizing fluid collection in the gallbladder. LFTs have normalized although lipase remains mildly elevated concerns for acute pancreatitis. Patient continues to have some mild abdominal pain with no reported nausea although not much of an appetite. Continue with supplements and small frequent meals and has been advanced to a low-fat dysphagia 3 diet per surgery. Patient with generalized weakness will have PT/OT therapy evaluate the patient. Patient also presented to the hospital initially with some chest pain and mildly elevated troponins, will have cardiology evaluate the patient and appreciate input and recommendations. Patient is currently afebrile with no reported chest discomfort or palpitations. Patient denies shortness of breath and reports no nausea or vomiting. 12/29/2023 Patient is seen and evaluated in follow-up today with daughters at the bedside. Patient being followed by general surgery as patient recently underwent laparoscopic cholecystectomy. Patient underwent upper GI series per surgery which shows a moderate-sized hiatal hernia with suspected duodenal bulb ulcer superior proximal duodenal bulb and small duodenal diverticulum of the second portion of the duodenum. Surgery discussing outpatient hiatal hernia repair once stabilized. Cardiology has evaluated the patient making recommendations regarding blood pressure management and adjustments have been made. Patient not eating very much with not much of an appetite. Patient denies pain after eating. Patient also reportedly has not had a bowel movement since Tuesday and will add a bowel regimen. Patient has been encouraged to increase walking and daughter reports she has been up and walking to the elevators and back. Patient hemoglobin today is noted to be 7.5 which is significant from 12/25/2023 when she came in which hemoglobin was 12.9. On imaging there is a duodenal ulcer suspected but there has been no active bleeding noted. Patient has not had a bowel movement and discussed with nursing staff about monitoring for any dark stools or bleeding. Patient has been maintained on IV hydration as well since admission and could somewhat be related to hemodilution. Will follow-up with repeat labs and also order iron studies. Patient is currently afebrile with no reported chest pain or shortness of breath. Patient reports she is tolerating diet and denies any nausea or vomiting. Review of systems: Constitutional: No reports of fatigue, fever, or chills Cardiovascular: No reports of chest pain or palpitations Respiratory: No reports of shortness of breath or cough GI: No reports of nausea, vomiting, or diarrhea, reports improvement in abdominal pain : No reports of dysuria or retention Neurovascular: No reports of weakness or numbness All medications have been reviewed Active Medications Acetaminophen (Acetaminophen Tab 325 Mg Tab) 650 mg PO Q6HR PRN PRN Reason: Fever and/ or Pain Hydrocodone Bitart/Acetaminophen (Hydrocodone/Apap 7.5-325mg 1 Each Tab) 1 each PO Q6H PRN PRN Reason: Pain Last Admin: 12/26/23 19:45 Dose: 1 each Amlodipine Besylate (Amlodipine 5 Mg Tab) 5 mg PO DAILY [facility] Last Admin: 12/29/23 10:23 Dose: 5 mg Ascorbic Acid (Ascorbic Acid 500 Mg Tab) 1,000 mg PO DAILY [facility] Last Admin: 12/29/23 10:17 Dose: Not Given Aspirin (Aspirin 81 Mg) 81 mg PO DAILY [facility] Last Admin: 12/29/23 10:16 Dose: 81 mg Atorvastatin Calcium (Atorvastatin 40 Mg Tab) 40 mg PO DAILY [facility] Last Admin: 12/29/23 10:16 Dose: 40 mg Cholecalciferol (Cholecalciferol 25 Mcg (1000 Iu) Tablet) 50 mcg PO DAILY [facility] Last Admin: 12/29/23 10:16 Dose: 50 mcg Hydromorphone HCl (Hydromorphone 0.5 Mg/0.5 Ml Syringe) 0.5 mg IVP Q3HR PRN PRN Reason: Moderate Pain (Scale 4 to 6) Last Admin: 12/26/23 11:48 Dose: 0.5 mg Sodium Chloride (Saline 0.9%) 1,000 mls @ 75 mls/hr IV .[id number] [facility] Last Admin: 12/29/23 10:17 Dose: 75 mls/hr Losartan Potassium (Losartan 50 Mg Tab) 50 mg PO DAILY [facility] Last Admin: 12/29/23 10:16 Dose: 50 mg Melatonin (Melatonin 3 Mg Tablet) 3 mg PO HS [facility] Last Admin: 12/28/23 20:51 Dose: 3 mg Metoprolol Tartrate (Metoprolol Tartrate 25 Mg Tab) 25 mg PO BID [facility] Last Admin: 12/29/23 10:16 Dose: 25 mg Multivitamins/Minerals (Vit A,C & Z-Aguhgy-Wszzanay 1 Each Tab) 1 each PO DAILY [facility] Last Admin: 12/29/23 10:16 Dose: 1 each Naloxone HCl (Naloxone 0.4 Mg/Ml 1 Ml Vial) 0.2 mg IV Q2M PRN PRN Reason: Opioid Reversal Ondansetron HCl (Ondansetron 4 Mg/2 Ml Vial) 4 mg IVP Q8HR PRN PRN Reason: Nausea And Vomiting Pantoprazole Sodium (Pantoprazole 40 Mg/10 Ml Vial) 40 mg IV DAILY [facility] Last Admin: 12/29/23 08:17 Dose: 40 mg Polyethylene Glycol (Polyethylene Glycol 3350 17 Gm Powd.Pack) 17 gm PO HS [facility] Senna (Sennosides 8.6 Mg Tab) 8.6 mg PO BID [facility] Physical exam: Gen: This is a 78-year-old female who is awake, alert and oriented x 2-3, well- developed, elderly appearing, extremely hard of hearing, thin built HEENT: Head is atraumatic, normocephalic. Pupils equal, round. Sclerae is anicteric. NECK: Supple. No JVD. No lymphadenopathy. No thyromegaly. LUNGS: Diminished breath sounds bilaterally otherwise clear to auscultation. No wheezes or rhonchi. No intercostal retractions. HEART: S1, S2 are muffled ABDOMEN: Soft. Mildly tender. Bowel sounds are present. No masses. EXTREMITIES: No pedal edema. No calf tenderness. NEUROLOGICAL: Patient is awake, alert and oriented x3. Cranial nerves 2 through 12 are grossly intact. Diffusely weak Assessment: Abdominal pain with nausea and vomiting possibly secondary to acute pancreatitis Recent laparoscopic cholecystectomy last week Chest pain, ruled out ACS Anemia, unknown etiology possibly secondary to duodenal ulcer as noted on upper GI series GERD Moderate-sized hiatal hernia noted on imaging, plans for outpatient follow-up with surgery History of coronary artery disease History of hypertension History of degenerative joint disease History of anxiety/depression GI prophylaxis DVT prophylaxis Full code with no mechanical ventilation Plan: Patient is status post MRCP which showed no evidence to suggest ductal stricture, choledocholithiasis or biliary ductal dilatation with postcholecystectomy changes and no organizing fluid collection in the gallbladder. Of note there is a moderate hiatal hernia noted. Patient underwent upper GI series suggestive of a moderate size hiatal hernia with suspected duodenal bulb ulcer superior proximal duodenal bulb and small duodenal diverticulum in the second portion of the duodenum Hemoglobin noted to be 7.5 today with no active bleeding. Will monitor for any dark stools and patient also has not had a bowel movement since Tuesday and will start bowel regimen and monitor closely. Iron studies ordered as well as repeat CBC. Transfuse if 7 or less Patient tolerating advanced to low-fat dysphagia 3 Diet per surgery and rec ommend to continue to slowly advance as tolerated. Patient daughter at the bedside reports she does not eat and has no appetite. Encouraged small frequent meals and will consult dietary cardiology following making adjustments to medications regarding blood pressure Labs reviewed and lipase is trending down currently 763, amylase 118 Patient was evaluated by physical therapy and did well and has been walking the halls. Encouraged family to continue walking frequently. Case management following arranging for home care Due to multiple complex medical issues, prognosis is guarded Possible discharge planning in the next 24 to 48 hours The impression and plan of care has been dictated by Saundra Shields, Nurse Practitioner as directed. Dr. Darrel MD I have performed a history and examination and MDM of this patient, discussed the same with the dictator, and agree with the dictator's assessment and plan as written ,documented as a scribe. Based on total visit time, I have performed more than 50% of the visit. Objective - Vital Signs Vital signs: Vital Signs Temp 98.3 F 12/29/23 04:00 Pulse 59 L 12/29/23 12:00 Resp 16 12/29/23 12:00 BP 128/62 12/29/23 12:00 Pulse Ox 97 12/29/23 12:00 FiO2 Intake & Output 12/28/23 12/29/23 12/29/23 18:59 06:59 18:59 Intake Total 480 Balance 480 Intake: Oral 480 Other: Voiding Method Toilet Toilet Toilet # Voids 1 - Labs CBC & Chem 7: 12/29/23 13:17 12/27/23 07:15 Labs: Abnormal Lab Results - Last 24 Hours (Table) 12/29/23 Range/Units 13:17 RBC 2.73 L (3.80-5.40) m/uL Hgb 7.5 L D (11.4-16.0) gm/dL Hct 24.1 L (34.0-46.0) % Neutrophils # 7.9 H (1.3-7.7) k/uL
[2023-12-29] MEDS ORDERED: Potassium Replacement Protocol 1 EACH MISC MISCELLANE PRN (14:26)
[2023-12-29 14:41] LABS: HGB 7.5 gm/dL (11.4-16.0)
[2023-12-29] MEDS: SENNOSIDES 8.6 MG TAB PO SCH (15:47)
[2023-12-29] MEDS: POTASSIUM CHLORIDE ER 20 MEQ TAB.ER PO SCH (15:47)
[2023-12-29] MEDS: MAGNESIUM SULFATE-D5W PMX 1 GM in DEXTROSE/WATER 1 100ML.BAG IVPB ONE (15:47)
--- NOTE | 2023-12-29 17:00 | CDI ---
Documentation Clarification Form Date: From: Sallie Cadena Phone: [phone] Admit Date: 12/28/2023 12:44:00 PM Patient Name: Roro Markham Visit Number: [id number] Discharge Date: ATTENTION: The Clinical Documentation Specialists (CDI) and [facility] Coding Staff appreciate your assistance in clarifying documentation. Please respond to the clarification below the line at the bottom and electronically sign. The CDI & [facility] Coding staff will review the response and follow-up if needed. Please note: Queries are made part of the Legal Health Record. If you have any questions, please contact the author of this message via ITS. Dr. Jennifer Rojo There is documentation of "Elevated troponin profile does not reflect acute coronary ischemia" in the Cardiology Note on 12/28. Additional clarification is requested. 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 We have been asked to evaluate the patient for chest pain and elevated troponins." - Per Cardiology Note on 12/28 Clinical Indicators: "EKG sinus rhythm, Q waves in inferior leads, nonspecific ST changes, sinus tachycardia" "Patient did have elevated troponins at 0.012, 0.015, 0.057, 0.158, 0.224." "Chest pain is located in the lower sternal area. She does also have a history of hiatal hernia. Pain radiates to the bilateral shoulders. She also had dizziness, no palpitations" "Patient denies having any chest pain or abdominal pain at the time of evaluation." - Per Cardiology Note on 12/28 Treatment: Per Cardiology Note on 12/28 "Continue patient's home cardiac medications Add amlodipine 5 mg daily Discontinue as needed hydralazine No need to repeat echocardiogram" Can you please clarify? [ ] Elevated troponin due to acute myocardial injury without myocardial infarction [ ] Elevated troponin due to chronic myocardial injury without myocardial infarction [ ] No additional diagnosis/Not clinically significant [ ] Other, please specify [ ] Unable to determine No additional diagnosis/Not clinically significant MTDD
[2023-12-29] MEDS: polyethylene glycoL 3350 17 GM POWD.PACK PO SCH (21:54)
[2023-12-30 09:42] VITALS: RESP 16
[2023-12-30 10:25] LABS: Anisocytosis Slight; Basophils % (A) 0 %; Eosinophils # (A) 0.1 k/uL (0-0.7); Eosinophils % (A) 1 %; HCT 24.8 % (34.0-46.0); HGB 7.9 gm/dL (11.4-16.0); Hypochromasia Slight; Lymphocytes # (A) 1.2 k/uL (1.0-4.8); Lymphocytes % (A) 12 %; MCH 28.2 pg (25.0-35.0); MCHC 31.7 g/dL (31.0-37.0); Mean Platelet Volume 7.9; Monocytes # (A) 0.4 k/uL (0-1.0); Monocytes % (A) 4 %; Neutrophils # (A) 8.1 k/uL (1.3-7.7); Neutrophils % (A) 81 %; Platelet Count 377 k/uL (150-450); Poikilocytosis Slight; RBC 2.78 m/uL (3.80-5.40); RDW 16.2 % (11.5-15.5)
[2023-12-30 10:46] LABS: Amylase 124 U/L (30-110); Lipase 713 U/L (23-300)
[2023-12-30 10:48] LABS: Magnesium 2.1 mg/dL (1.6-2.3)
[2023-12-30 12:15] VITALS: BP 136/65; PULSE 56; TEMP 97.5
--- NOTE | 2023-12-30 12:37 | P.PN ---
Subjective Progress Note Date: 12/30/23 patient remains stable. She has no abdominal pain today. On exam vital signs are stable. Abdomen soft. Status post laparoscopic ocholecystectomy. Patient has a moderate size hiatal hernia. Patient will follow-up in the office for outpatient management. Objective - Vital Signs Vital signs: Vital Signs Temp 97.5 F L 12/30/23 11:44 Pulse 56 L 12/30/23 11:44 Resp 16 12/30/23 11:44 BP 136/65 12/30/23 11:44 Pulse Ox 100 12/30/23 11:44 FiO2 Intake & Output 12/29/23 12/30/23 12/30/23 18:59 06:59 18:59 Intake Total 360 220 180 Balance 360 220 180 Weight 48.534 kg Intake: IV 20 Invasive Line 2 20 Oral 360 200 180 Other: Voiding Method Toilet Toilet Toilet # Voids 1 1 # Bowel Movements 1 1 - Labs CBC & Chem 7: 12/30/23 09:24 12/29/23 13:17 Labs: Abnormal Lab Results - Last 24 Hours (Table) 12/29/23 12/29/23 12/30/23 Range/Units 13:17 13:17 09:24 RBC 2.73 L 2.78 L (3.80-5.40) m/uL Hgb 7.5 L D 7.9 L (11.4-16.0) gm/dL Hct 24.1 L 24.8 L (34.0-46.0) % RDW 16.2 H (11.5-15.5) % Neutrophils # 7.9 H 8.1 H (1.3-7.7) k/uL Chloride 118 H (98-107) mmol/L Carbon Dioxide 20 L (22-30) mmol/L Glucose 120 H (74-99) mg/dL Calcium 8.0 L (8.4-10.2) mg/dL Total Protein 4.8 L (6.3-8.2) g/dL Albumin 2.5 L (3.5-5.0) g/dL Amylase 118 H (30-110) U/L Lipase 763 H (23-300) U/L 12/30/23 Range/Units 09:24 RBC (3.80-5.40) m/uL Hgb (11.4-16.0) gm/dL Hct (34.0-46.0) % RDW (11.5-15.5) % Neutrophils # (1.3-7.7) k/uL Chloride (98-107) mmol/L Carbon Dioxide (22-30) mmol/L Glucose (74-99) mg/dL Calcium (8.4-10.2) mg/dL Total Protein (6.3-8.2) g/dL Albumin (3.5-5.0) g/dL Amylase 124 H (30-110) U/L Lipase 713 H (23-300) U/L
--- NOTE | 2023-12-30 13:37 | P.PN ---
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 We have been asked to evaluate the patient for chest pain and elevated troponins. Patient had a recent hospitalization 12/18 - 12/21 for chest pain and underwent cholecystectomy during that hospitalization. Patient did have elevated troponins at 0.012, 0.015, 0.057, 0.158, 0.224. Patient states that when she left here on of last week, she did not have any pain but then on Tuesday she started developing abdominal pain and chest pain. Chest pain is located in the lower sternal area. She does also have a history of hiatal hernia. Pain radiates to the bilateral shoulders. She also had dizziness, no palpitations, no cough no fever or chills. She has been followed by general surgery and is scheduled for an upper GI today. Daughter also states that at home her blood pressure prior to arrival was 233/119. Patient denies having any chest pain or abdominal pain at the time of evaluation. EKG sinus rhythm, Q waves in inferior leads, nonspecific ST changes, sinus tachycardia Chest x-ray: No acute findings CTA of the thoracic, abdominal pelvic aorta revealed small volume pneumoperitoneum consistent with recent cholecystectomy. No evidence of aortic dissection. 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 Fluid distended stomach and duodenum correlate with recent ingested food. Circumferential wall thickening of the distal esophagus recommend evaluation with EGD. Trace pleural effusions. Mild rectosigmoid colon wall thickening correlate for history of colitis. MRCP: No evidence of ductal stricture, choledocholithiasis, biliary ductal dilatation. CBC, INR, electrolytes normal. BUN 51 creatinine 0.72. Liver function test are normal. Troponin 0.034, 0.037 and 0.042. Lipase 1238. TSH 0.74. Home cardiac medications: Aspirin 81 mg daily, atorvastatin 40 mg daily, losartan 50 mg daily. Echocardiogram performed 12/20/2023 reveals EF of 55 to 60%, mild concentric left hypertrophy, mild MR. 12/29 Patient is found sitting in recliner and daughters at bedside. Patient states she is feeling much better today. She denies having any chest pain. Blood pressure 136/65, heart rate 56, pulse ox 100% on room air. Repeat blood work reveals hemoglobin 7.9. Magnesium 2.1. Physical examination: Gen: This is an 78-year-old female in no acute distress VS: reviewed HEENT: Head is atraumatic, normocephalic. Pupils equal, round. Sclerae is anicteric. Hard of hearing. NECK: Supple. No JVD. LUNGS: Clear to auscultation. No wheezes or rhonchi. No intercostal retractions. HEART: Regular rate and rhythm. Systolic murmur at the right sternal border, systolic murmur at the left mid sternal border. ABDOMEN: Soft No tenderness. EXTREMITIES: No pedal edema. No calf tenderness. NEUROLOGICAL: Patient is awake, alert and oriented x3. Assessment: Elevated troponin profile does not reflect acute coronary ischemia Accelerated hypertension History of coronary artery disease with previous CABG in 2006 and stent placement Hyperlipidemia Abdominal pain Hiatal hernia Plan: Continue current cardiac medications No need to repeat echocardiogram Cardiology will sign off this case and follow on an as-needed basis. Please reconsult for any new concerns. Patient may follow-up in the office in one to 2 weeks. Nurse practitioner note has been reviewed, I agree with documented findings and plan of care. Patient was seen and examined. Objective - Vital Signs Vital signs: Vital Signs Temp 98.2 F 12/30/23 04:00 Pulse 69 12/30/23 04:00 Resp 18 12/30/23 04:00 BP 147/64 12/30/23 04:00 Pulse Ox 92 L 12/30/23 04:00 FiO2 Intake & Output 12/29/23 12/30/23 12/30/23 18:59 06:59 18:59 Intake Total 360 220 Balance 360 220 Weight 48.534 kg Intake: IV 20 Invasive Line 2 20 Oral 360 200 Other: Voiding Method Toilet Toilet # Voids 1 # Bowel Movements 1 - Labs CBC & Chem 7: 12/30/23 09:24 12/29/23 13:17 Labs: Abnormal Lab Results - Last 24 Hours (Table) 12/29/23 12/29/23 Range/Units 13:17 13:17 RBC 2.73 L (3.80-5.40) m/uL Hgb 7.5 L D (11.4-16.0) gm/dL Hct 24.1 L (34.0-46.0) % Neutrophils # 7.9 H (1.3-7.7) k/uL Chloride 118 H (98-107) mmol/L Carbon Dioxide 20 L (22-30) mmol/L Glucose 120 H (74-99) mg/dL Calcium 8.0 L (8.4-10.2) mg/dL Total Protein 4.8 L (6.3-8.2) g/dL Albumin 2.5 L (3.5-5.0) g/dL Amylase 118 H (30-110) U/L Lipase 763 H (23-300) U/L
[2023-12-30 16:31] LABS: % Iron Saturation 8.6 (12.00-45.00)
== END 2023-12-30 14:31 | disposition home health service (06) | DRG 439 ==
LOC: EC 13:09 → 6NMEDSUR 16:08 → 3SCARD 18:58 → OBSVTOIN 12-28 12:44
PROVIDERS: ADMIT Family Medicine; ATTEND Family Medicine
DX: K85.90 Acute pancreatitis without necrosis or infection, unspecified (principal); K55.1 Chronic vascular disorders of intestine; K26.9 Duodenal ulcer, unspecified as acute or chronic, without hemorrhage or perforation; E78.5 Hyperlipidemia, unspecified; I70.0 Atherosclerosis of aorta; F32.A Depression, unspecified; I10 Essential (primary) hypertension; Z28.310 Unvaccinated for COVID-19; I25.10 Atherosclerotic heart disease of native coronary artery without angina pectoris; F41.9 Anxiety disorder, unspecified; K21.9 Gastro-esophageal reflux disease without esophagitis; K44.9 Diaphragmatic hernia without obstruction or gangrene; K57.10 Diverticulosis of small intestine without perforation or abscess without bleeding; M81.0 Age-related osteoporosis without current pathological fracture; G89.29 Other chronic pain; M19.90 Unspecified osteoarthritis, unspecified site; R74.01 Elevation of levels of liver transaminase levels; M54.9 Dorsalgia, unspecified; Z79.82 Long term (current) use of aspirin; Z79.899 Other long term (current) drug therapy; Z95.1 Presence of aortocoronary bypass graft; Z95.5 Presence of coronary angioplasty implant and graft
CPT/HCPCS: 36415; 71046; 71275; 74174; 74181; 74240; 80053; 82150; 82728; 83540; 83550; 83690; 83735; 84443; 84484; 85025; 85610; 85730; 93005; 96361; 96374; 96375; 96376; 99285

== ENCOUNTER → 2024-01-02 | Outpatient (CLI) | payer MEDICARE ==
[2024-01-02 17:11] LABS: BUN/Creat Ratio 9.29 Ratio (12.00-20.00); Blood Urea Nitrogen 6.5 mg/dL (9.0-27.0); Calcium 8.6 mg/dL (8.7-10.3); Carbon Dioxide 24.3 mmol/L (21.6-31.8); Chloride 110 mmol/L (96-109); Glucose 92 mg/dL (70-110); Potassium 3.4 mmol/L (3.5-5.5); Sodium 144 mmol/L (135-145)
[2024-01-02 17:39] LABS: HCT 24.9 % (37.2-46.3); HGB 7.9 g/dL (12.0-15.0); MCH 28.3 pg (27.0-32.0); MCHC 31.7 g/dL (32.0-37.0); MCV 89.2 FL (80.0-97.0); Mean Platelet Volume 10.1 FL (9.5-12.2); NRBC Per 100 WBC 0 X 10*3/uL (0.00-0.01); Platelet Count 416 X 10*3/uL (140-440); RBC 2.79 X 10*6/uL (4.10-5.20); RDW 16.8 % (11.5-14.5); WBC 8.35 X 10*3/uL (4.50-10.00)
== END | disposition home or self-care (01) ==
LOC: LABWHC1 10:02
PROVIDERS: ATTEND Hospitalist
DX: K57.10 Diverticulosis of small intestine without perforation or abscess without bleeding (principal); M19.90 Unspecified osteoarthritis, unspecified site
CPT/HCPCS: 36415; 80048; 85027

== ENCOUNTER → 2024-01-05 | Outpatient (CLI) | payer MEDICARE ==
[2024-01-05 21:36] LABS: Basophils # (A) 0.04 X 10*3/uL (0.00-0.10); Basophils % (A) 0.6 %; Eosinophils # (A) 0.12 X 10*3/uL (0.04-0.35); Eosinophils % (A) 1.8 %; HCT 25.9 % (37.2-46.3); HGB 8.2 g/dL (12.0-15.0); Lymphocytes # (A) 1.73 X 10*3/uL (0.90-5.00); Lymphocytes % (A) 26.1 %; MCH 27.6 pg (27.0-32.0); MCHC 31.7 g/dL (32.0-37.0); MCV 87.2 FL (80.0-97.0); Mean Platelet Volume 9.8 FL (9.5-12.2); Monocytes # (A) 0.55 X 10*3/uL (0.20-1.00); Monocytes % (A) 8.3 %; NRBC Per 100 WBC 0 X 10*3/uL (0.00-0.01); Neutrophils # (A) 4.18 X 10*3/uL (1.80-7.70); Neutrophils % (A) 62.9 %; Platelet Count 449 X 10*3/uL (140-440); RBC 2.97 X 10*6/uL (4.10-5.20); WBC 6.64 X 10*3/uL (4.50-10.00)
[2024-01-05 21:40] LABS: Amylase 75 U/L (23-121)
[2024-01-05 21:41] LABS: ALT 18 U/L (8-44); AST 23 U/L (13-35); Albumin 3.2 g/dL (3.8-4.9); Albumin/Globulin Ratio 1.78 Ratio (1.60-3.17); Alkaline Phosphatase 90 U/L (41-126); BUN/Creat Ratio 8.38 Ratio (12.00-20.00); Blood Urea Nitrogen 6.7 mg/dL (9.0-27.0); Calcium 8.8 mg/dL (8.7-10.3); Carbon Dioxide 25.3 mmol/L (21.6-31.8); Chloride 108 mmol/L (96-109); Globulin 1.8 g/dL (1.6-3.3); Glucose 98 mg/dL (70-110); Lipase 104 U/L (14-63); Potassium 3.4 mmol/L (3.5-5.5); Sodium 144 mmol/L (135-145); Total Bilirubin 0.3 mg/dL (0.3-1.2)
== END | disposition home or self-care (01) ==
LOC: LABWHC1 15:34
PROVIDERS: ATTEND Family Medicine
DX: I10 Essential (primary) hypertension (principal); E78.5 Hyperlipidemia, unspecified; R74.8 Abnormal levels of other serum enzymes
CPT/HCPCS: 36415; 80053; 82150; 83690; 85025

== ENCOUNTER 2024-02-22 11:19 | Emergency (ER) | payer MEDICARE ==
--- NOTE | 2024-02-22 12:26 | ED ---
Back Pain HPI - General Chief Complaint: Back Pain/Injury Stated Complaint: R Side Pain Time Seen by Provider: 02/22/24 11:44 Source: patient, family, RN notes reviewed Mode of arrival: ambulatory Limitations: no limitations - History of Present Illness Initial Comments: This is an 78-year-old female who presents to the emergency department for right side pain. States that she was sitting down watching TV when she suddenly developed pain in the right side. Denies any injuries. States that the pain lasted for a few hours and then resolved. Pain is not currently present. Denies any associated nausea or vomiting. Denies any history of similar pain in the past. She does not have any chest pain but states that she does feel very winded. Unsure if she is short of breath or if this is because she does not have her walker. MD Complaint: back pain - Related Data Home Medications Medication Instructions Recorded Confirmed Cholecalciferol [Vitamin D3 (25 50 mcg PO DAILY 12/19/23 12/25/23 Mcg = 1000 Iu)] Melatonin 3 mg PO HS 12/19/23 12/25/23 Vit A/Vit C/Vit E/Zinc/Copper 1 cap PO DAILY 12/19/23 12/25/23 [ICAPS SOFTGEL] Vitamin B Complex 1 cap PO DAILY 12/19/23 12/25/23 HYDROcodone/APAP 7.5-325MG [[place] 1 tab PO Q6H PRN 12/25/23 12/25/23 7.5-325] Previous Rx's Medication Instructions Recorded Aspirin 81 mg PO DAILY #30 tab 12/22/23 Atorvastatin [Lipitor] 40 mg PO DAILY #30 tab 12/22/23 Losartan [Cozaar] 50 mg PO DAILY #30 tab 12/22/23 Acetaminophen Tab [Tylenol] 650 mg PO Q6HR PRN tab 12/30/23 Metoprolol Tartrate [Lopressor] 25 mg PO BID #60 tab 12/30/23 Pantoprazole [Protonix] 40 mg PO DAILY #30 tab 12/30/23 Sennosides [Senokot] 8.6 mg PO BID #60 tab 12/30/23 amLODIPine [Norvasc] 5 mg PO DAILY #30 tab 12/30/23 Lidocaine 5% Patch [Lidoderm 5% 1 patch TOPICAL DAILY PRN #30 patch 02/22/24 Patch] Naproxen Sodium 550 mg PO BID PRN #30 tablet 02/22/24 cefUROXime axetiL [Ceftin] 500 mg PO BID 7 Days #14 tab 02/22/24 Allergies Allergy/AdvReac Type Severity Reaction Status Date / Time No Known Allergies Allergy Verified 12/25/23 20:44 Review of Systems ROS Statement: Those systems with pertinent positive or pertinent negative responses have been documented in the HPI. ROS Other: All systems not noted in ROS Statement are negative. Past Medical History Past Medical History: Coronary Artery Disease (CAD), Chest Pain / Angina, Hypertension Additional Past Medical History / Comment(s): Chronic Back Pain lately and re cently saw Dr. Joyce for this, DDD, DJD, osteoporosis. hiatal hernia History of Any Multi-Drug Resistant Organisms: None Reported Past Surgical History: Coronary Bypass/CABG, Heart Catheterization Additional Past Surgical History / Comment(s): 2005 CABG 2 vessel, depression Past Anesthesia/Blood Transfusion Reactions: No Reported Reaction Past Psychological History: Anxiety, Depression Smoking Status: Never smoker Past Alcohol Use History: None Reported Past Drug Use History: None Reported - Past Family History Father Additional Family Medical History / Comment(s): Father had heart problems after the of his daughter. Mother Family Medical History: Myocardial Infarction ([place]) Additional Family Medical History / Comment(s): Mother in her 60s from a [place]. Sister(s) Additional Family Medical History / Comment(s): Sister comitted suicide. General Exam Limitations: no limitations General appearance: alert, in no apparent distress Head exam: Present: atraumatic, normocephalic, normal inspection Respiratory exam: Present: normal lung sounds bilaterally. Absent: respiratory distress, wheezes, rales, rhonchi, stridor Cardiovascular Exam: Present: regular rate, normal rhythm, normal heart sounds. Absent: systolic murmur, diastolic murmur, rubs, gallop, clicks Back exam: Present: other (Tenderness to palpation over the right mid back and right side) Neurological exam: Present: alert, oriented X3, CN II-XII intact Psychiatric exam: Present: normal affect, normal mood Skin exam: Present: warm, dry, intact, normal color. Absent: rash Course Vital Signs 02/22/24 02/22/24 02/22/24 11:21 14:37 16:00 Temperature 97.6 F 98.2 F 98 F Pulse Rate 76 75 70 Respiratory 16 18 18 Rate Blood Pressure 186/82 200/95 201/103 O2 Sat by Pulse 98 100 100 Oximetry 02/22/24 16:34 Temperature 98 F Pulse Rate 74 Respiratory 18 Rate Blood Pressure 163/89 O2 Sat by Pulse 100 Oximetry Medical Decision Making - Medical Decision Making This is an 78-year-old female who presents to the emergency department for right side/back pain. Was pt. sent in by a medical professional or institution? @ -No Did you speak to anyone other than the patient for history? @ -No Did you review nursing and triage notes? @ -Yes, and I agree, it is accurate with regards to the patient's symptoms. Were old charts reviewed? @ -No Differential Diagnosis? @ -Differential Back Pain: Strain, zoster, cauda equina syndrome, epidural abscess, vertebral osteomyelitis, discitis, fracture, subluxation, disc herniation, DJD, spinal stenosis, dissection, AAA, pancreatitis, peptic ulcer disease, pyelonephritis, kidney stone, this is not meant to be an all-inclusive list. EKG interpreted by me (3pts min.)? @ -EKG interpreted by me demonstrating the following: Sinus rhythm. Ventricular rate 74 bpm, OH interval 156 ms, QRS duration 72 ms, QTc 426 ms. X-rays interpreted by me (1pt min.)? @ -Chest x-ray obtained, my interpretation identifies no localized consolidations or infiltrates. CT interpreted by me (1pt min.)? @ -CT scan of the abdomen and pelvis obtained. My interpretation identifies no evidence of a ureteral calculus. U/S interpreted by me (1pt. min.)? @ -Not obtained What testing was considered but not performed? (CT, X-rays, U/S, labs)? Why? @ -None What meds were considered but not given? Why? @ -None Did you discuss the management of the patient with other professionals? @ -No Did you reconcile home meds? @ -No Was smoking cessation discussed for >3mins.? @ -No Was critical care preformed (if so, how long)? @ -No Were there social determinants of health that impacted care today? How? (Homelessness, low income, unemployed, alcoholism, drug addiction, transportation, low edu. Level, literacy, decrease access to med. care, senior care, rehab)? @ -No Was there de-escalation of care discussed even if they declined? (Discuss DNR or withdrawal of care, Hospice)? @ -No What co-morbidities impacted this encounter? (DM, HTN, Smoking, COPD, CAD, Cancer, CVA, Hep., AIDS, mental health diagnosis, sleep apnea, morbid obesity)? @ -CAD, HTN Was patient admitted / discharged? @ -Discharged. Lab work demonstrates a mildly elevated D-dimer of 0.60. However this is negative when corrected for the patient's age. She has mild hypokalemia with a potassium of 3.4. Lipase is also mildly elevated. Urinalysis consistent with infection and urine was sent for culture. Chest x- ray reveals no acute process. CT scan of the abdomen and pelvis demonstrates no suspicious acute changes to account for right flank pain. She does have potential phlegmon formation posterior to the lower sacrum and coccyx. Patient declines any pain there. Will start the patient on antibiotics for management of the UTI, which we discussed can contribute to the right flank pain. This he l also cover possible infection in the sacrum/coccyx region. Prescription for cefuroxime provided with dosing instructions reviewed. Ceftriaxone administered in the emergency department prior to discharge. She was also given a prescription for lidocaine patches and naproxen for additional pain management. Advised follow-up with her primary care provider for reevaluation. Patient discharged home in stable condition. Undiagnosed new problem with uncertain prognosis? @ -None Drug Therapy requiring intensive monitoring for toxicity (Heparin, Nitro, Insul in, Cardizem)? @ -None Were any procedures done? @ -None Diagnosis/symptom? @ -Right side pain, UTI Acute, or Chronic, or Acute on Chronic? @ -Acute Uncomplicated (without systemic symptoms) or Complicated (systemic symptoms)? @ -Uncomplicated Side effects of treatment? @ -None Exacerbation, Progression, or Severe Exacerbation] @ -Not applicable Poses a threat to life or bodily function? @ -No Return precautions reviewed in depth, the patient is instructed to return to the emergency department with any new, worsening, or concerning symptoms. Patient verbalized understanding. This case was discussed in detail with the attending ED physician, Dr. Whitman. Presentation, findings, and treatment plan discussed in detail as well. - Lab Data Result diagrams: 02/22/24 12:16 02/22/24 12:16 Lab Results 02/22/24 02/22/24 02/22/24 Range/Units 12:16 12:16 12:16 WBC 8.2 (3.8-10.6) k/uL RBC 4.44 (3.80-5.40) m/uL Hgb 11.8 D (11.4-16.0) gm/dL Hct 37.8 (34.0-46.0) % MCV 85.2 (80.0-100.0) fL MCH 26.7 (25.0-35.0) pg MCHC 31.3 (31.0-37.0) g/dL RDW 14.5 (11.5-15.5) % Plt Count 283 (150-450) k/uL MPV 7.9 Neutrophils % 70 % Lymphocytes % 21 % Monocytes % 6 % Eosinophils % 1 % Basophils % 1 % Neutrophils # 5.7 (1.3-7.7) k/uL Lymphocytes # 1.7 (1.0-4.8) k/uL Monocytes # 0.5 (0-1.0) k/uL Eosinophils # 0.1 (0-0.7) k/uL Basophils # 0.1 (0-0.2) k/uL PT 10.9 (10.0-12.5) sec INR 1.0 (<1.2) APTT 25.2 (22.0-30.0) sec D-Dimer 0.60 H (<0.60) mg/L FEU Sodium 138 (137-145) mmol/L Potassium 3.4 L (3.5-5.1) mmol/L Chloride 104 (98-107) mmol/L Carbon Dioxide 30 (22-30) mmol/L Anion Gap 4 mmol/L BUN 9 (7-17) mg/dL Creatinine 0.62 (0.52-1.04) mg/dL Est GFR (CKD-EPI)AfAm >90 (>60 ml/min/1.73 sqM) Est GFR (CKD-EPI)NonAf 86 (>60 ml/min/1.73 sqM) Glucose 87 (74-99) mg/dL Calcium 9.2 (8.4-10.2) mg/dL Magnesium 1.6 (1.6-2.3) mg/dL Total Bilirubin 0.6 (0.2-1.3) mg/dL AST 29 (14-36) U/L ALT 16 (4-34) U/L Alkaline Phosphatase 111 (38-126) U/L Troponin I (0.000-0.034) ng/mL NT-Pro-B Natriuret Pep 691 pg/mL Total Protein 6.2 L (6.3-8.2) g/dL Albumin 3.4 L (3.5-5.0) g/dL Lipase 506 H (23-300) U/L Urine Color Urine Appearance (Clear) Urine pH (5.0-8.0) Ur Specific [place] (1.001-1.035) Urine Protein (Negative) Urine Glucose (UA) (Negative) Urine Ketones (Negative) Urine Blood (Negative) Urine Nitrite (Negative) Urine Bilirubin (Negative) Urine Urobilinogen (<2.0) mg/dL Ur Leukocyte Esterase (Negative) Urine RBC (0-5) /hpf Urine WBC (0-5) /hpf Urine WBC Clumps (None) /hpf Ur Squamous Epith Cells (0-4) /hpf Urine Bacteria (None) /hpf 02/22/24 02/22/24 Range/Units 12:16 12:16 WBC (3.8-10.6) k/uL RBC (3.80-5.40) m/uL Hgb (11.4-16.0) gm/dL Hct (34.0-46.0) % MCV (80.0-100.0) fL MCH (25.0-35.0) pg MCHC (31.0-37.0) g/dL RDW (11.5-15.5) % Plt Count (150-450) k/uL MPV Neutrophils % % Lymphocytes % % Monocytes % % Eosinophils % % Basophils % % Neutrophils # (1.3-7.7) k/uL Lymphocytes # (1.0-4.8) k/uL Monocytes # (0-1.0) k/uL Eosinophils # (0-0.7) k/uL Basophils # (0-0.2) k/uL PT (10.0-12.5) sec INR (<1.2) APTT (22.0-30.0) sec D-Dimer (<0.60) mg/L FEU Sodium (137-145) mmol/L Potassium (3.5-5.1) mmol/L Chloride (98-107) mmol/L Carbon Dioxide (22-30) mmol/L Anion Gap mmol/L BUN (7-17) mg/dL Creatinine (0.52-1.04) mg/dL Est GFR (CKD-EPI)AfAm (>60 ml/min/1.73 sqM) Est GFR (CKD-EPI)NonAf (>60 ml/min/1.73 sqM) Glucose (74-99) mg/dL Calcium (8.4-10.2) mg/dL Magnesium (1.6-2.3) mg/dL Total Bilirubin (0.2-1.3) mg/dL AST (14-36) U/L ALT (4-34) U/L Alkaline Phosphatase (38-126) U/L Troponin I <0.012 (0.000-0.034) ng/mL NT-Pro-B Natriuret Pep pg/mL Total Protein (6.3-8.2) g/dL Albumin (3.5-5.0) g/dL Lipase (23-300) U/L Urine Color Light Yellow Urine Appearance Turbid H (Clear) Urine pH 7.5 (5.0-8.0) Ur Specific [place] 1.019 (1.001-1.035) Urine Protein Trace H (Negative) Urine Glucose (UA) Negative (Negative) Urine Ketones Negative (Negative) Urine Blood Trace H (Negative) Urine Nitrite Positive H (Negative) Urine Bilirubin Negative (Negative) Urine Urobilinogen <2.0 (<2.0) mg/dL Ur Leukocyte Esterase Large H (Negative) Urine RBC 12 H (0-5) /hpf Urine WBC >182 H (0-5) /hpf Urine WBC Clumps Many H (None) /hpf Ur Squamous Epith Cells 6 H (0-4) /hpf Urine Bacteria Few H (None) /hpf - Radiology Data Radiology results: report reviewed, image reviewed Disposition Clinical Impression: UTI (urinary tract infection), Right sided abdominal pain Disposition: HOME SELF-CARE Instructions (If sedation given, give patient instructions): Urinary Tract Infection in Women (ED), Abdominal Pain (ED) Additional Instructions: Return to the emergency department with any new, worsening, or concerning symptoms. Take the antibiotic as prescribed for 7 days. You can take the naproxen twice daily as needed for pain relief. Do not take any other anti- inflammatories such as ibuprofen with this, take one or the other. You may take this with Tylenol. You can also try applying the lidocaine patches daily. Follow up with your primary care provider in 1-2 days. Prescriptions: cefUROXime axetiL [Ceftin] 500 mg PO BID 7 Days #14 tab Lidocaine 5% Patch [Lidoderm 5% Patch] 1 patch TOPICAL DAILY PRN #30 patch PRN Reason: Pain Naproxen Sodium 550 mg PO BID PRN #30 tablet PRN Reason: Pain Is patient prescribed a controlled substance at d/c from ED?: No Referrals: Micky Lagos MD [Primary Care Provider] - 1-2 days Time of Disposition: 16:43
[2024-02-22] MEDS: LIDOCAINE 4% PATCH TOPICAL ONE (12:48)
[2024-02-22 12:49] LABS: Basophils # (A) 0.1 k/uL (0-0.2); Basophils % (A) 1 %; Eosinophils # (A) 0.1 k/uL (0-0.7); Eosinophils % (A) 1 %; HCT 37.8 % (34.0-46.0); Lymphocytes # (A) 1.7 k/uL (1.0-4.8); Lymphocytes % (A) 21 %; MCH 26.7 pg (25.0-35.0); MCHC 31.3 g/dL (31.0-37.0); MCV 85.2 fL (80.0-100.0); Mean Platelet Volume 7.9; Monocytes # (A) 0.5 k/uL (0-1.0); Monocytes % (A) 6 %; Neutrophils # (A) 5.7 k/uL (1.3-7.7); Neutrophils % (A) 70 %; Platelet Count 283 k/uL (150-450); RBC 4.44 m/uL (3.80-5.40); RDW 14.5 % (11.5-15.5); WBC 8.2 k/uL (3.8-10.6)
[2024-02-22 12:55] LABS: HGB 11.8 gm/dL (11.4-16.0)
[2024-02-22 13:03] LABS: Partial Thromboplastin Time 25.2 sec (22.0-30.0); Prothrombin Time 10.9 sec (10.0-12.5)
[2024-02-22 13:17] LABS: Appearance,Urine Turbid (Clear); Bacteria,Urine Few /hpf; Bilirubin,Urine Negative (Negative); Blood,Urine Trace (Negative); Color,Urine Light Yellow; Glucose,Urine (UA) Negative (Negative); Ketones,Urine Negative (Negative); Leukocyte Esterase,Urine Large (Negative); Nitrite,Urine Positive (Negative); PH, Urine 7.5 (5.0-8.0); Protein,Urine Trace (Negative); RBC,Urine 12 /hpf (0-5); Specific Gravity,Urine 1.019 (1.001-1.035); Squamous Epithelial Cell,Urine 6 /hpf (0-4); Urobilinogen,Urine <2.0 mg/dL (<2.0); WBC,Urine >182 /hpf (0-5)
[2024-02-22 13:34] LABS: ALT 16 U/L (4-34); AST 29 U/L (14-36); African American GFR (CKD) >90 (>60 ml/min/1.73 sqM); Albumin 3.4 g/dL (3.5-5.0); Alkaline Phosphatase 111 U/L (38-126); Anion Gap 4 mmol/L; Blood Urea Nitrogen 9 mg/dL (7-17); Calcium 9.2 mg/dL (8.4-10.2); Carbon Dioxide 30 mmol/L (22-30); Chloride 104 mmol/L (98-107); Glucose 87 mg/dL (74-99); Lipase 506 U/L (23-300); Magnesium 1.6 mg/dL (1.6-2.3); Non-African American GFR(CKD) 86 (>60 ml/min/1.73 sqM); Potassium 3.4 mmol/L (3.5-5.1); Sodium 138 mmol/L (137-145); Total Bilirubin 0.6 mg/dL (0.2-1.3); Total Protein 6.2 g/dL (6.3-8.2)
[2024-02-22 13:37] LABS: NT-Pro-B-Type Natriuretic Pept 691 pg/mL
[2024-02-22] MEDS: KETOROLAC 15 MG/ML 1 ML VIAL IVP STA (15:15)
--- NOTE | 2024-02-22 15:56 | CT ---
EXAMINATION TYPE: CT abdomen pelvis wo con DATE OF EXAM: 02/22/2024 COMPARISON: INDICATION: Right flank pain. DLP: 269.4 mGycm, Automated exposure control for dose reduction was used. CONTRAST: 0 mL of Isovue 300. Study performed without Oral Contrast TECHNIQUE: Axial images were obtained from above the diaphragm to the pubic rami in the axial plane a t 5 mm thick sections. Reconstructed images are reviewed on the computer in the coronal plane. FINDINGS: Limited CT sections are obtained the lung bases. The lung bases are clear. There is a moderate-size d hiatal hernia present. Coronary artery calcifications noted CT ABDOMEN: Liver: Normal Spleen: Normal Pancreas: Normal Adrenal glands: The adrenal glands are normal. Gallbladder: Not identified. Kidneys: No masses are evident. No hydronephrosis is present. No cysts are present. Delayed images were obtained through the kidneys, which remain unremarkable. Aorta: Vascular calcification is within the aorta. Inferior vena cava: Normal. CT PELVIS: Superficial soft tissue increased density is posterior to the sacrum and coccyx. Correlate for infection. No abscess formation is identified. Loops of bowel within the abdomen and pelvis are normal. Fecal debris is at the rectum. There are loops of bowel which are incompletely distended or lack oral contrast limiting their evaluation. Appendix: Not identified. No inflammatory changes or dilated tubular structures are evident. Urinary bladder: Normal. Genitourinary structures: Uterus contains peripheral calcification. Adnexa are unremarkable. There ma y be a calcification in the left ovary. Osseous structures: No suspicious lytic or sclerotic lesions. Degenerative changes are within the sco liotic lumbar spine. IMPRESSION: 1. No suspicious acute changes to account for right flank pain. 2. There may be some phlegmon formation posterior to the lower sacrum and coccyx. Clinical correlatio n recommended.
[2024-02-22] MEDS: LABETALOL 5 MG/ML VIAL MDV IVP STA (16:07)
--- NOTE | 2024-02-22 16:29 | XR ---
EXAMINATION TYPE: XR ribs RT w pa chest xray DATE OF EXAM: 02/22/2024 COMPARISON: 12/25/2023 HISTORY: Pain TECHNIQUE: AP chest 2 view right ribs FINDINGS: Sternotomy wires and midline. Heart size is normal. Pulmonary vasculature is normal. Lungs are clear. No displaced right rib fractures are evident. No pneumothorax is evident a costochondral cartilage ca lcification is present. IMPRESSION: 1. No acute right rib osseous abnormality.
[2024-02-22] MEDS: ACET/COD 300 MG/30 MG STARTER PACK 6 TAB BTL PO STA (16:57)
[2024-02-22] MEDS: POTASSIUM CHLORIDE ER 20 MEQ TAB.ER PO STA (16:59)
[2024-02-22] MEDS: cefTRIAXone IN SWFI 1,000 MG/10 ML SYRINGE IVP STA (16:59)
[2024-02-22 18:02] VITALS: BP 173/97; PULSE 65; RESP 16; TEMP 98.1
== END 2024-02-22 17:17 | disposition home or self-care (01) ==
LOC: EC 11:19
DX: N39.0 Urinary tract infection, site not specified (principal); I10 Essential (primary) hypertension; I25.10 Atherosclerotic heart disease of native coronary artery without angina pectoris; Z79.899 Other long term (current) drug therapy
CPT/HCPCS: 36415; 93005; 85379; 83880; 80053; 83690; 83735; 84484; 85025; 85610; 85730; 81001; 87086; 71101; 74176; 99284; 96374; 96375 ×2; J0696; J1885; J1920